=== PATIENT | male | born 1960 | race Caucasian/White ===

== ENCOUNTER 2018-10-27 13:33 | Inpatient (IN) | payer BC, SELFPAY ==
[2018-10-27] VITALS (17 sets, daily range): BP systolic 132–170; BP diastolic 76–92; PULSE 85–118; RESP 12–29; TEMP 36.6–39.2; O2SAT 91–98; BMI 27.7
--- NOTE | 2018-10-27 14:02 | DI.US.S_ITS ---
PROCEDURE: US EXTREMITY NONVASC UPPER LT INDICATIONS: REDNESS AND SWELLING TO THE LEFT UPPER EXTREMITY / SHOULDER TECHNIQUE: Real-time scanning was performed of the left upper arm, with image documentation. COMPARISON: None. FINDINGS: Sonographic images along the medial aspect of the shoulder demonstrate a focal area of heteroechogenicity measuring 9.0 x 2.6 x 3.4 cm. There is no increased vascularity. It is approximately 1.5 cm from the skin surface. IMPRESSION: Heteroechogenicity within the upper extremity adjacent to the shoulder as above. Overall appearance is suggestive of hematoma or potentially abscess. Recommend clinical correlation. Dictated by: Blanca Sarah M.D. on 10/27/2018 at 15:06 Approved by: Blanca Sarah M.D. on 10/27/2018 at 15:07
--- NOTE | 2018-10-27 14:20 | ED.SKABFB ---
HPI - Skin/Abscess/Foreign Bdy <IAN Simmons - Last Filed: 10/27/18 22:30> General Chief complaint: Skin/Abscess/Foreign Body Stated complaint: left shoulder pain and swelling Time Seen by Provider: 10/27/18 13:35 Source: patient Mode of arrival: ambulatory Limitations: no limitations History of Present Illness HPI narrative: 58-year-old male with history hyperlipidemia and is a nonsmoker here for complaint of pain and redness to his left upper arm/shoulder for the past week. He denies any trauma to the shoulder. He was seen for this several days ago by his primary care provider and who put him on prednisone and gave him a steroid shot to the left shoulder to treated for tendinitis. He reports that there is increased pain and swelling to the area and increased redness. He does state that he has had a low-grade fever at times over the past few days. He states the pain started about a week ago after he slipped on it. He denies any drainage from the area. Increased pain with motion of the left arm. No other concerns or complaints at this timeframe. MD complaint: other (Redness to left upper extremity) Related Data Home Medications Medication Instructions Recorded Confirmed Calcium 1 tab PO QPM 10/27/18 10/27/18 aspirin 81 mg PO QPM 10/27/18 10/27/18 diazepam 5 mg PO Q4H PRN 10/27/18 10/27/18 multivitamin 1 tab PO QPM 10/27/18 10/27/18 prednisone 20 mg PO DAILY 10/27/18 10/27/18 rosuvastatin 10 mg PO QPM 10/27/18 10/27/18 Allergies Allergy/AdvReac Type Severity Reaction Status Date / Time almond Allergy Intermediate Hives Verified 10/27/18 19:27 peanut Allergy Intermediate Hives Verified 10/27/18 19:27 walnut Allergy Intermediate Hives Verified 10/27/18 19:27 latex Allergy Mild Rash Verified 10/27/18 19:27 Review of Systems <IAN Simmons - Last Filed: 10/27/18 22:30> Constitutional Denies chills, Denies fever(s), Denies lethargy and Denies weakness Eyes Denies change in vision, Denies eye discharge, Denies irritation and Denies loss of vision ENT Ears, Nose, Mouth, and Throat: Denies change in voice, Denies neck pain and Denies sore throat Cardiovascular Denies chest pain, Denies irregular heart rhythm, Denies lightheadedness, Denies palpitations, Denies dyspnea, Denies dyspnea on exertion and Denies orthopnea Respiratory Denies cough, Denies dyspnea, Denies dyspnea on exertion and Denies wheezing Gastrointestinal Gastrointestinal: Denies abdominal pain, Denies change in bowel habits, Denies diarrhea, Denies nausea and Denies vomiting Genitourinary Denies hematuria, Denies flank pain, Denies urinary incontinence and Denies urinary urgency Musculoskeletal Denies neck pain Comments: Left upper arm redness and swelling Integumentary/Breasts Denies pruritus, Denies erythema, Denies rash and Denies wounds Neurologic Denies loss of vision and Denies weakness Endocrine Denies palpitations Hematologic/Lymphatic Denies easy bruising Allergic/Immunologic Denies wheezing PFSH <IAN Simmons - Last Filed: 10/27/18 22:30> Medical History Hyperlipidemia (Acute) Social History household members: spouse Smoking Status: Never smoker Social History household members: spouse Smoking Status: Never smoker additional social history: The patient lives in a single family home with his to whom he has been for 10 years. His father is related to elevated cholesterol cardiovascular disease status post bypass and smoking. His mother has a history of diabetes. He has 3 siblings 2 sisters and 1 brother all of whom he described as in good health. 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 Exam <IAN Simmons - Last Filed: 10/27/18 22:30> Initial Vital Signs Initial Vital Signs: Vital Signs Temperature 97.8 F 10/27/18 13:38 Pulse Rate 85 10/27/18 13:38 Respiratory Rate 19 10/27/18 13:38 Blood Pressure 133/83 10/27/18 13:38 Pulse Oximetry 97 10/27/18 13:38 Const General: cooperative and well developed Nutritional Appearance: well nourished Orientation: alert, awake, oriented x3 and not confused HENME Mouth: oral mucosae normal and moist mucous membranes Eyes Conjunctivae: conjunctivae normal Sclera: sclerae normal Pupils: PERRL EOM: EOM intact bilaterally Resp Effort & Inspection: normal respiratory effort, able to speak in complete sentences, no respiratory distress and no use of accessory muscles Auscultation: clear to auscultation bilaterally, no rales, no rhonchi and no wheezes Cardio Rate: regular rate Rhythm: regular rhythm Heart Sounds: no click, no gallops, no murmurs and no rubs Pulses: normal peripheral pulses Skin General: no rashes or lesions noted, No jaundice and No petechiae Neuro General: alert, oriented x3, gait normal and no focal motor deficits Speech: speech normal Extrem Other: Erythema and warmth to the anterior and lateral aspect of the left biceps area. Large area of swelling and firmness to the anterior medial biceps area. Distal sensation is intact. Distal range of motions intact. Distal pulses are intact <Alyse Mc DO - Last Filed: 10/30/18 07:18> Initial Vital Signs Initial Vital Signs: Vital Signs Temperature 97.8 F 10/27/18 13:38 Pulse Rate 85 10/27/18 13:38 Respiratory Rate 19 10/27/18 13:38 Blood Pressure 133/83 10/27/18 13:38 Pulse Oximetry 97 10/27/18 13:38 Course <IAN Simmons - Last Filed: 10/27/18 22:30> Orders Ordered: ED Orders 10/30/18 06:40 Basic Metabolic Panel Routine Complete Blood Count AUTO DIFF Routine Procalcitonin Routine Dextrose (D50w) 25 gm IV PRN PRN; Protocol PRN Reason: Hypoglycemia Hydromorphone HCl (Dilaudid) 0.25 mg IV Q5MIN PRN PRN Reason: Pain, Mild (1-3) Hydromorphone HCl (Dilaudid) 0.5 mg IV Q5MIN PRN PRN Reason: Pain, Moderate (4-6) Last Admin: 10/29/18 18:37 Dose: 0.5 mg Admin: 10/29/18 18:31 Dose: 0.5 mg Admin: 10/29/18 18:06 Dose: 0.5 mg Admin: 10/29/18 17:58 Dose: 0.5 mg Hydromorphone HCl (Dilaudid) 1 mg IV Q5MIN PRN PRN Reason: Pain, Severe (7-10) Hydromorphone HCl (Dilaudid) 0.5 mg IV Q2H PRN PRN Reason: Pain, Severe (7-10) Last Admin: 10/30/18 06:54 Dose: 0.5 mg Admin: 10/30/18 03:54 Dose: 0.5 mg Admin: 10/30/18 01:58 Dose: 0.5 mg Penicillin G Potassium (Penicillin G Potassium) 3,000,000 unit in 50 mls @ 100 mls/hr IV Q4H [facility] Last Infusion: 10/30/18 05:13 Dose: 0 mls/hr Admin: 10/30/18 03:46 Dose: 100 mls/hr Infusion: 10/29/18 23:36 Dose: 0 mls/hr Admin: 10/29/18 23:06 Dose: 100 mls/hr Infusion: 10/29/18 21:17 Dose: 0 mls/hr Admin: 10/29/18 20:26 Dose: 100 mls/hr Insulin Aspart (Novolog Flexpen) 0 unit SUBCUT [facility]; Protocol Last Admin: 10/29/18 21:26 Dose: Not Given Oxycodone HCl (Percolone) 5 mg PO Q30MIN PRN PRN Reason: Mild or moderate pain Discontinued Medications Acetaminophen (Tylenol) 975 mg PO TID [facility] Last Admin: 10/29/18 14:11 Dose: 975 mg Admin: 10/29/18 07:39 Dose: 975 mg Admin: 10/28/18 19:31 Dose: 975 mg Admin: 10/28/18 13:57 Dose: 975 mg Admin: 10/28/18 08:17 Dose: 975 mg Albuterol (Ventolin) 2.5 mg INH NOW PRN PRN Reason: Coughing, Wheezing, Dyspnea Aspirin (Aspirin Ec) 81 mg PO BID [facility] Last Admin: 10/29/18 10:10 Dose: Not Given Admin: 10/28/18 19:31 Dose: 81 mg Admin: 10/28/18 10:06 Dose: 81 mg Aspirin (Aspirin Ec) 81 mg PO QPM [facility] Benzonatate (Tessalon Perles) 100 mg PO TID PRN PRN Reason: Cough Bupivacaine HCl/Epinephrine Bitart (Sensorcaine 0.25% W/ Epi (Pf)) 30 ml INJ NOW ONE Stop: 10/27/18 21:29 Last Admin: 10/27/18 21:10 Dose: 12 ml Calcium Carbonate (Calcium) 600 mg PO QPM [facility] Last Admin: 10/29/18 21:14 Dose: Not Given Admin: 10/28/18 18:23 Dose: 600 mg Sodium Chloride 3,000 ml/ (Gentamicin Sulfate 240 mg) 0 ml IRR NOW ONE Stop: 10/27/18 21:29 Last Admin: 10/27/18 21:29 Dose: 3,006 ml Fentanyl (Sublimaze) 50 mcg IV Q5MIN PRN PRN Reason: Pain, Moderate (4-6) Guaifenesin/Codeine Phosphate (Guaifenesin/Codeine Liquid) 10 ml PO NOW ONE Stop: 10/29/18 03:02 Last Admin: 10/29/18 03:19 Dose: 10 ml Hydromorphone HCl (Dilaudid) 0.5 mg IV NOW ONE Stop: 10/27/18 14:03 Last Admin: 10/27/18 14:23 Dose: 0.5 mg Hydromorphone HCl (Dilaudid) 0.5 mg IV NOW ONE Stop: 10/27/18 15:10 Last Admin: 10/27/18 15:17 Dose: 0.5 mg Hydromorphone HCl (Dilaudid) 0.5 mg IV NOW ONE Stop: 10/27/18 17:58 Last Admin: 10/27/18 17:58 Dose: 0.5 mg Hydromorphone HCl (Dilaudid) 0.5 mg IV NOW ONE Stop: 10/27/18 19:02 Last Admin: 10/27/18 19:07 Dose: 0.5 mg Hydromorphone HCl (Dilaudid) 0.5 mg IV Q5MIN PRN PRN Reason: Pain, Moderate (4-6) Last Admin: 10/27/18 21:57 Dose: 0.5 mg Admin: 10/27/18 21:49 Dose: 0.5 mg Vancomycin HCl 1,500 mg/ (Sodium Chloride) 500 mls @ 333.333 mls/hr IV NOW ONE Stop: 10/27/18 15:42 Last Infusion: 10/27/18 19:12 Dose: 0 mls/hr Admin: 10/27/18 16:22 Dose: 333.333 mls/hr Lactated Ringer's (Lactated Ringers) 1,000 mls @ 42 mls/hr IV NOW ONE Stop: 10/28/18 19:27 Last Infusion: 10/27/18 22:38 Dose: 0 mls/hr Admin: 10/27/18 19:39 Dose: 42 mls/hr Cefazolin Sodium 3 gm/ Sodium (Chloride) 100 mls @ 200 mls/hr IV NOW ONE Stop: 10/27/18 21:32 Last Admin: 10/28/18 02:01 Dose: Not Given Cefazolin Sodium 2 gm/ Sodium (Chloride) 100 mls @ 200 mls/hr IV NOW ONE Stop: 10/27/18 22:00 Last Infusion: 10/27/18 21:15 Dose: 0 mls/hr Admin: 10/27/18 21:10 Dose: 200 mls/hr Cefazolin Sodium/Dextrose (Ancef) 2 gm in 100 mls @ 200 mls/hr IV Q8H [facility] Stop: 10/28/18 08:22 Last Infusion: 10/28/18 11:35 Dose: 0 mls/hr Admin: 10/28/18 10:02 Dose: 200 mls/hr Infusion: 10/28/18 03:51 Dose: 0 mls/hr Infusion: 10/28/18 02:30 Dose: 0 mls/hr Admin: 10/28/18 01:51 Dose: 200 mls/hr Vancomycin HCl/Dextrose (Vancomycin) 1,000 mg in 200 mls @ 200 mls/hr IV Q12H [facility] Stop: 10/28/18 00:52 Last Infusion: 10/28/18 03:52 Dose: 0 mls/hr Admin: 10/28/18 02:30 Dose: 200 mls/hr Cefazolin Sodium/Dextrose (Ancef) 1 gm in 50 mls @ 200 mls/hr IV Q8H [facility] Last Admin: 10/29/18 21:21 Dose: 200 mls/hr Infusion: 10/29/18 10:30 Dose: 0 mls/hr Admin: 10/29/18 09:40 Dose: 200 mls/hr Infusion: 10/29/18 02:45 Dose: 0 mls/hr Admin: 10/29/18 02:29 Dose: 200 mls/hr Infusion: 10/28/18 19:39 Dose: 0 mls/hr Admin: 10/28/18 18:30 Dose: 200 mls/hr Sodium Chloride (Normal Saline 0.9%) 250 mls @ 21 mls/hr IV Q24H PRN PRN Reason: Flush Last Infusion: 10/29/18 10:30 Dose: 0 mls/hr Admin: 10/29/18 09:40 Dose: 21 mls/hr Lactated Ringer's (Lactated Ringers) 1,000 mls @ 42 mls/hr IV CONT [facility] Last Infusion: 10/29/18 19:44 Dose: 0 mls/hr Admin: 10/29/18 15:59 Dose: 42 mls/hr Influenza Virus Vaccine (Flu Vaccine) 0.5 ml IM .ONCE ONE Stop: 10/27/18 22:42 Last Admin: 10/28/18 02:02 Dose: Not Given Ketorolac Tromethamine (Toradol) 30 mg IV NOW ONE Stop: 10/29/18 18:14 Last Admin: 10/29/18 18:15 Dose: 30 mg Meperidine HCl (Demerol) 25 mg IV Q5MIN PRN PRN Reason: Pain or shivering Meperidine HCl (Demerol) 25 mg IV Q5MIN PRN PRN Reason: Pain or shivering Last Admin: 10/29/18 17:49 Dose: 25 mg Admin: 10/29/18 17:44 Dose: 25 mg Metoclopramide HCl (Reglan) 10 mg IV NOW PRN PRN Reason: Nausea And Vomiting Multivitamins (Tab-A-Maribel) 1 tab PO QPM [facility] Last Admin: 10/29/18 21:15 Dose: Not Given Admin: 10/28/18 18:23 Dose: 1 tab Non-Formulary Medication (Labetolol) 5 mg IV Q5MIN [facility] Last Admin: 10/27/18 22:01 Dose: 5 mg Ondansetron HCl (Zofran) 4 mg IV NOW PRN PRN Reason: Nausea And Vomiting Ondansetron HCl (Zofran Odt) 4 mg PO Q4HR PRN PRN Reason: Nausea And Vomiting Ondansetron HCl (Zofran) 4 mg IV Q4HR PRN PRN Reason: Nausea And Vomiting Last Admin: 10/28/18 04:04 Dose: 4 mg Oxycodone HCl (Percolone) 5 mg PO Q3HR PRN PRN Reason: Pain, Moderate (4-6) Last Admin: 10/29/18 07:39 Dose: 5 mg Admin: 10/29/18 00:58 Dose: 5 mg Admin: 10/28/18 18:30 Dose: 5 mg Admin: 10/28/18 10:06 Dose: 5 mg Admin: 10/28/18 06:57 Dose: 5 mg Admin: 10/28/18 03:59 Dose: 5 mg Polyethylene Glycol (Miralax) 17 gm PO DAILY [facility] Last Admin: 10/29/18 10:10 Dose: Not Given Admin: 10/28/18 10:07 Dose: 17 gm Rosuvastatin Calcium (Crestor) 10 mg PO QPM [facility] Last Admin: 10/29/18 21:15 Dose: Not Given Admin: 10/28/18 18:23 Dose: 10 mg Sodium Chloride (Normal Saline 0.9% Flush) 10 ml IV PRN PRN PRN Reason: Flush Sodium Chloride (Normal Saline 0.9% Flush) 10 ml IV BID [facility] Last Admin: 10/29/18 09:39 Dose: 10 ml Admin: 10/28/18 19:35 Dose: 10 ml Vital Signs - 8 hr 10/30/18 02:00 10/30/18 06:01 10/30/18 06:46 Temperature 98.3 F 97.8 F Pulse Rate 97 H 97 H Respiratory Rate 16 16 Blood Pressure 149/84 H 120/81 Pulse Oximetry 98 97 <Alyse Mc, - Last Filed: 10/30/18 07:18> Orders Ordered: ED Orders 10/30/18 06:40 Basic Metabolic Panel Routine Complete Blood Count AUTO DIFF Routine Procalcitonin Routine Dextrose (D50w) 25 gm IV PRN PRN; Protocol PRN Reason: Hypoglycemia Hydromorphone HCl (Dilaudid) 0.25 mg IV Q5MIN PRN PRN Reason: Pain, Mild (1-3) Hydromorphone HCl (Dilaudid) 0.5 mg IV Q5MIN PRN PRN Reason: Pain, Moderate (4-6) Last Admin: 10/29/18 18:37 Dose: 0.5 mg Admin: 10/29/18 18:31 Dose: 0.5 mg Admin: 10/29/18 18:06 Dose: 0.5 mg Admin: 10/29/18 17:58 Dose: 0.5 mg Hydromorphone HCl (Dilaudid) 1 mg IV Q5MIN PRN PRN Reason: Pain, Severe (7-10) Hydromorphone HCl (Dilaudid) 0.5 mg IV Q2H PRN PRN Reason: Pain, Severe (7-10) Last Admin: 10/30/18 06:54 Dose: 0.5 mg Admin: 10/30/18 03:54 Dose: 0.5 mg Admin: 10/30/18 01:58 Dose: 0.5 mg Penicillin G Potassium (Penicillin G Potassium) 3,000,000 unit in 50 mls @ 100 mls/hr IV Q4H [facility] Last Infusion: 10/30/18 05:13 Dose: 0 mls/hr Admin: 10/30/18 03:46 Dose: 100 mls/hr Infusion: 10/29/18 23:36 Dose: 0 mls/hr Admin: 10/29/18 23:06 Dose: 100 mls/hr Infusion: 10/29/18 21:17 Dose: 0 mls/hr Admin: 10/29/18 20:26 Dose: 100 mls/hr Insulin Aspart (Novolog Flexpen) 0 unit SUBCUT [facility]; Protocol Last Admin: 10/29/18 21:26 Dose: Not Given Oxycodone HCl (Percolone) 5 mg PO Q30MIN PRN PRN Reason: Mild or moderate pain Discontinued Medications Acetaminophen (Tylenol) 975 mg PO TID [facility] Last Admin: 10/29/18 14:11 Dose: 975 mg Admin: 10/29/18 07:39 Dose: 975 mg Admin: 10/28/18 19:31 Dose: 975 mg Admin: 10/28/18 13:57 Dose: 975 mg Admin: 10/28/18 08:17 Dose: 975 mg Albuterol (Ventolin) 2.5 mg INH NOW PRN PRN Reason: Coughing, Wheezing, Dyspnea Aspirin (Aspirin Ec) 81 mg PO BID [facility] Last Admin: 10/29/18 10:10 Dose: Not Given Admin: 10/28/18 19:31 Dose: 81 mg Admin: 10/28/18 10:06 Dose: 81 mg Aspirin (Aspirin Ec) 81 mg PO QPM [facility] Benzonatate (Tessalon Perles) 100 mg PO TID PRN PRN Reason: Cough Bupivacaine HCl/Epinephrine Bitart (Sensorcaine 0.25% W/ Epi (Pf)) 30 ml INJ NOW ONE Stop: 10/27/18 21:29 Last Admin: 10/27/18 21:10 Dose: 12 ml Calcium Carbonate (Calcium) 600 mg PO QPM [facility] Last Admin: 10/29/18 21:14 Dose: Not Given Admin: 10/28/18 18:23 Dose: 600 mg Sodium Chloride 3,000 ml/ (Gentamicin Sulfate 240 mg) 0 ml IRR NOW ONE Stop: 10/27/18 21:29 Last Admin: 10/27/18 21:29 Dose: 3,006 ml Fentanyl (Sublimaze) 50 mcg IV Q5MIN PRN PRN Reason: Pain, Moderate (4-6) Guaifenesin/Codeine Phosphate (Guaifenesin/Codeine Liquid) 10 ml PO NOW ONE Stop: 10/29/18 03:02 Last Admin: 10/29/18 03:19 Dose: 10 ml Hydromorphone HCl (Dilaudid) 0.5 mg IV NOW ONE Stop: 10/27/18 14:03 Last Admin: 10/27/18 14:23 Dose: 0.5 mg Hydromorphone HCl (Dilaudid) 0.5 mg IV NOW ONE Stop: 10/27/18 15:10 Last Admin: 10/27/18 15:17 Dose: 0.5 mg Hydromorphone HCl (Dilaudid) 0.5 mg IV NOW ONE Stop: 10/27/18 17:58 Last Admin: 10/27/18 17:58 Dose: 0.5 mg Hydromorphone HCl (Dilaudid) 0.5 mg IV NOW ONE Stop: 10/27/18 19:02 Last Admin: 10/27/18 19:07 Dose: 0.5 mg Hydromorphone HCl (Dilaudid) 0.5 mg IV Q5MIN PRN PRN Reason: Pain, Moderate (4-6) Last Admin: 10/27/18 21:57 Dose: 0.5 mg Admin: 10/27/18 21:49 Dose: 0.5 mg Vancomycin HCl 1,500 mg/ (Sodium Chloride) 500 mls @ 333.333 mls/hr IV NOW ONE Stop: 10/27/18 15:42 Last Infusion: 10/27/18 19:12 Dose: 0 mls/hr Admin: 10/27/18 16:22 Dose: 333.333 mls/hr Lactated Ringer's (Lactated Ringers) 1,000 mls @ 42 mls/hr IV NOW ONE Stop: 10/28/18 19:27 Last Infusion: 10/27/18 22:38 Dose: 0 mls/hr Admin: 10/27/18 19:39 Dose: 42 mls/hr Cefazolin Sodium 3 gm/ Sodium (Chloride) 100 mls @ 200 mls/hr IV NOW ONE Stop: 10/27/18 21:32 Last Admin: 10/28/18 02:01 Dose: Not Given Cefazolin Sodium 2 gm/ Sodium (Chloride) 100 mls @ 200 mls/hr IV NOW ONE Stop: 10/27/18 22:00 Last Infusion: 10/27/18 21:15 Dose: 0 mls/hr Admin: 10/27/18 21:10 Dose: 200 mls/hr Cefazolin Sodium/Dextrose (Ancef) 2 gm in 100 mls @ 200 mls/hr IV Q8H [facility] Stop: 10/28/18 08:22 Last Infusion: 10/28/18 11:35 Dose: 0 mls/hr Admin: 10/28/18 10:02 Dose: 200 mls/hr Infusion: 10/28/18 03:51 Dose: 0 mls/hr Infusion: 10/28/18 02:30 Dose: 0 mls/hr Admin: 10/28/18 01:51 Dose: 200 mls/hr Vancomycin HCl/Dextrose (Vancomycin) 1,000 mg in 200 mls @ 200 mls/hr IV Q12H [facility] Stop: 10/28/18 00:52 Last Infusion: 10/28/18 03:52 Dose: 0 mls/hr Admin: 10/28/18 02:30 Dose: 200 mls/hr Cefazolin Sodium/Dextrose (Ancef) 1 gm in 50 mls @ 200 mls/hr IV Q8H [facility] Last Admin: 10/29/18 21:21 Dose: 200 mls/hr Infusion: 10/29/18 10:30 Dose: 0 mls/hr Admin: 10/29/18 09:40 Dose: 200 mls/hr Infusion: 10/29/18 02:45 Dose: 0 mls/hr Admin: 10/29/18 02:29 Dose: 200 mls/hr Infusion: 10/28/18 19:39 Dose: 0 mls/hr Admin: 10/28/18 18:30 Dose: 200 mls/hr Sodium Chloride (Normal Saline 0.9%) 250 mls @ 21 mls/hr IV Q24H PRN PRN Reason: Flush Last Infusion: 10/29/18 10:30 Dose: 0 mls/hr Admin: 10/29/18 09:40 Dose: 21 mls/hr Lactated Ringer's (Lactated Ringers) 1,000 mls @ 42 mls/hr IV CONT [facility] Last Infusion: 10/29/18 19:44 Dose: 0 mls/hr Admin: 10/29/18 15:59 Dose: 42 mls/hr Influenza Virus Vaccine (Flu Vaccine) 0.5 ml IM .ONCE ONE Stop: 10/27/18 22:42 Last Admin: 10/28/18 02:02 Dose: Not Given Ketorolac Tromethamine (Toradol) 30 mg IV NOW ONE Stop: 10/29/18 18:14 Last Admin: 10/29/18 18:15 Dose: 30 mg Meperidine HCl (Demerol) 25 mg IV Q5MIN PRN PRN Reason: Pain or shivering Meperidine HCl (Demerol) 25 mg IV Q5MIN PRN PRN Reason: Pain or shivering Last Admin: 10/29/18 17:49 Dose: 25 mg Admin: 10/29/18 17:44 Dose: 25 mg Metoclopramide HCl (Reglan) 10 mg IV NOW PRN PRN Reason: Nausea And Vomiting Multivitamins (Tab-A-Maribel) 1 tab PO QPM [facility] Last Admin: 10/29/18 21:15 Dose: Not Given Admin: 10/28/18 18:23 Dose: 1 tab Non-Formulary Medication (Labetolol) 5 mg IV Q5MIN [facility] Last Admin: 10/27/18 22:01 Dose: 5 mg Ondansetron HCl (Zofran) 4 mg IV NOW PRN PRN Reason: Nausea And Vomiting Ondansetron HCl (Zofran Odt) 4 mg PO Q4HR PRN PRN Reason: Nausea And Vomiting Ondansetron HCl (Zofran) 4 mg IV Q4HR PRN PRN Reason: Nausea And Vomiting Last Admin: 10/28/18 04:04 Dose: 4 mg Oxycodone HCl (Percolone) 5 mg PO Q3HR PRN PRN Reason: Pain, Moderate (4-6) Last Admin: 10/29/18 07:39 Dose: 5 mg Admin: 10/29/18 00:58 Dose: 5 mg Admin: 10/28/18 18:30 Dose: 5 mg Admin: 10/28/18 10:06 Dose: 5 mg Admin: 10/28/18 06:57 Dose: 5 mg Admin: 10/28/18 03:59 Dose: 5 mg Polyethylene Glycol (Miralax) 17 gm PO DAILY [facility] Last Admin: 10/29/18 10:10 Dose: Not Given Admin: 10/28/18 10:07 Dose: 17 gm Rosuvastatin Calcium (Crestor) 10 mg PO QPM [facility] Last Admin: 10/29/18 21:15 Dose: Not Given Admin: 10/28/18 18:23 Dose: 10 mg Sodium Chloride (Normal Saline 0.9% Flush) 10 ml IV PRN PRN PRN Reason: Flush Sodium Chloride (Normal Saline 0.9% Flush) 10 ml IV BID [facility] Last Admin: 10/29/18 09:39 Dose: 10 ml Admin: 10/28/18 19:35 Dose: 10 ml Vital Signs - 8 hr 10/30/18 02:00 10/30/18 06:01 10/30/18 06:46 Temperature 98.3 F 97.8 F Pulse Rate 97 H 97 H Respiratory Rate 16 16 Blood Pressure 149/84 H 120/81 Pulse Oximetry 98 97 MDM - Skin/Abscess/Foreign Bdy <IAN Simmons - Last Filed: 10/27/18 22:30> Lab Data Result diagrams: 10/29/18 06:42 10/27/18 14:24 Lab Results 10/27/18 10/27/18 10/27/18 Range/Units 14:24 14:24 14:24 WBC 25.5 H (4.5-11.0) X10^3/uL RBC 4.36 L (4.5-5.9) X10^6/uL Hgb 12.9 L (13.5-17.5) g/dL Hct 38.8 L (41-53) % MCV 89.1 (80-100) fL MCH 29.5 (26-34) PG MCHC 33.1 (30-36) % RDW 13.4 (11.6-14.8) % Plt Count 432 H (150-400) X10^3/uL Neut % (Auto) Not Reportable Lymph % (Auto) Not Reportable [place] % (Auto) Not Reportable Eos % (Auto) Not Reportable Baso % (Auto) Not Reportable Lymph # (Auto) Not Reportable [place] # (Auto) Not Reportable Baso # (Auto) Not Reportable Total Counted 100 Seg Neutrophils % 84.0 H (38-70) % Band Neutrophils % 8.0 H (3-7) % Lymphocytes % (Manual) 3.0 L (25-45) % Monocytes % (Manual) 4.0 (2-11) % Eosinophils % (Manual) 1.0 L (2-4) % Neutrophils # (Manual) 24666 H (3257-8194) /uL RBC Morphology Normal morphology Sodium 136 L (137-145) mmol/L Potassium 3.9 (3.4-5.1) mmol/L Chloride 98 (98-107) mmol/L Carbon Dioxide 26 (22-32) mmol/L BUN 18 (9-20) mg/dL Creatinine 0.80 (0.66-1.25) mg/dL Estimated GFR > 60.0 (>60) mL/min BUN/Creatinine Ratio 22.5 H (6-22) Glucose 240 H (70-100) mg/dL Hemoglobin A1c (4.0-6.0) % Lactate (0.7-2.1) mmol/L Calcium 8.6 (8.4-10.2) mg/dL Total Bilirubin 0.3 (0.2-1.3) mg/dL AST 44 (17-59) IU/L ALT 71 (21-72) IU/L Alkaline Phosphatase 111 (38-126) U/L Total Protein 8.5 H (6.3-8.2) g/dL Albumin 3.7 (3.5-5.0) g/dL Globulin 4.8 H (1.7-4.1) g/dL Albumin/Globulin Ratio 0.8 L (1.0-2.8) Procalcitonin 0.27 (<0.5) ng/mL 10/27/18 10/28/18 10/29/18 Range/Units 14:24 06:55 06:42 WBC 26.2 H (4.5-11.0) X10^3/uL RBC 3.95 L (4.5-5.9) X10^6/uL Hgb 11.7 L (13.5-17.5) g/dL Hct 34.7 L (41-53) % MCV 87.9 (80-100) fL MCH 29.5 (26-34) PG MCHC 33.6 (30-36) % RDW 13.1 (11.6-14.8) % Plt Count 448 H (150-400) X10^3/uL Neut % (Auto) Lymph % (Auto) [place] % (Auto) Eos % (Auto) Baso % (Auto) Lymph # (Auto) [place] # (Auto) Baso # (Auto) Total Counted Seg Neutrophils % (38-70) % Band Neutrophils % (3-7) % Lymphocytes % (Manual) (25-45) % Monocytes % (Manual) (2-11) % Eosinophils % (Manual) (2-4) % Neutrophils # (Manual) (5427-3565) /uL RBC Morphology Sodium (137-145) mmol/L Potassium (3.4-5.1) mmol/L Chloride (98-107) mmol/L Carbon Dioxide (22-32) mmol/L BUN (9-20) mg/dL Creatinine (0.66-1.25) mg/dL Estimated GFR (>60) mL/min BUN/Creatinine Ratio (6-22) Glucose (70-100) mg/dL Hemoglobin A1c 6.0 (4.0-6.0) % Lactate 1.9 (0.7-2.1) mmol/L Calcium (8.4-10.2) mg/dL Total Bilirubin (0.2-1.3) mg/dL AST (17-59) IU/L ALT (21-72) IU/L Alkaline Phosphatase (38-126) U/L Total Protein (6.3-8.2) g/dL Albumin (3.5-5.0) g/dL Globulin (1.7-4.1) g/dL Albumin/Globulin Ratio (1.0-2.8) Procalcitonin (<0.5) ng/mL 10/29/18 Range/Units 06:42 WBC 25.5 H (4.5-11.0) X10^3/uL RBC 4.12 L (4.5-5.9) X10^6/uL Hgb 12.2 L (13.5-17.5) g/dL Hct 36.4 L (41-53) % MCV 88.3 (80-100) fL MCH 29.7 (26-34) PG MCHC 33.7 (30-36) % RDW 13.3 (11.6-14.8) % Plt Count 512 H (150-400) X10^3/uL Neut % (Auto) Not Reportable Lymph % (Auto) Not Reportable [place] % (Auto) Not Reportable Eos % (Auto) Not Reportable Baso % (Auto) Not Reportable Lymph # (Auto) Not Reportable [place] # (Auto) Not Reportable Baso # (Auto) Not Reportable Total Counted 100 Seg Neutrophils % 80.0 H (38-70) % Band Neutrophils % 2.0 L (3-7) % Lymphocytes % (Manual) 11.0 L (25-45) % Monocytes % (Manual) 7.0 (2-11) % Eosinophils % (Manual) (2-4) % Neutrophils # (Manual) 89957 H (9139-9284) /uL RBC Morphology Normal morphology Sodium (137-145) mmol/L Potassium (3.4-5.1) mmol/L Chloride (98-107) mmol/L Carbon Dioxide (22-32) mmol/L BUN (9-20) mg/dL Creatinine (0.66-1.25) mg/dL Estimated GFR (>60) mL/min BUN/Creatinine Ratio (6-22) Glucose (70-100) mg/dL Hemoglobin A1c (4.0-6.0) % Lactate (0.7-2.1) mmol/L Calcium (8.4-10.2) mg/dL Total Bilirubin (0.2-1.3) mg/dL AST (17-59) IU/L ALT (21-72) IU/L Alkaline Phosphatase (38-126) U/L Total Protein (6.3-8.2) g/dL Albumin (3.5-5.0) g/dL Globulin (1.7-4.1) g/dL Albumin/Globulin Ratio (1.0-2.8) Procalcitonin (<0.5) ng/mL Point of Care Testing Glucose POC 171 Imaging Data Left upper extremity ultrasound: Radiologist's impression: [address] [address] Ultrasound Report Signed Patient: Anuel Melendrez BANNER#: [id number] : 9Acct:[id number] Age/Sex: 58 / MDate of Service: 10/27/18 Loc: ED Accession Number: [id number] Procedure: US extremity nonvasc upper lt Ordering Provider: Rodney Vail PROCEDURE: US EXTREMITY NONVASC UPPER LT INDICATIONS: REDNESS AND SWELLING TO THE LEFT UPPER EXTREMITY / SHOULDER TECHNIQUE: Real-time scanning was performed of the left upper arm, with image documentation. COMPARISON: None. FINDINGS: Sonographic images along the medial aspect of the shoulder demonstrate a focal area of heteroechogenicity measuring 9.0 x 2.6 x 3.4 cm. There is no increased vascularity. It is approximately 1.5 cm from the skin surface. IMPRESSION: Heteroechogenicity within the upper extremity adjacent to the shoulder as above. Overall appearance is suggestive of hematoma or potentially abscess. Recommend clinical correlation. Dictated by: Blanca Sarah M.D. on 10/27/2018 at 15:06 Approved by: Blanca Sarah M.D. on 10/27/2018 at 15:07 MRI left upper extremity : Radiologist's impression: [address] [address] Magnetic Resonance Report Signed Patient: [place] AMR#: [id number] : 9Acct:[id number] Age/Sex: 58 / MDate of Service: 10/27/18 Loc: ED Accession Number: [id number] Procedure: MR humerus LT wo/w con Ordering Provider: Rodney Vail PROCEDURE: MR HUMERUS LT WO/W CON INDICATIONS: Redness and swelling to the left anterior arm into anterior TECHNIQUE: Noncontrast coronal T1 spin echo and STIR, sagittal T1 spin echo with fat saturation and STIR, axial T1 spin echo and T2 fast spin echo with fat saturation. After the administration of contrast, axial/sagittal/coronal T1 spin echo with fat saturation through the left upper arm. COMPARISON: [facility], , EXTREMITY NONVAS UPPER LT, 10/27/2018, 14:18. FINDINGS: Image quality: Diagnostic. Bones: There is no acute fracture or dislocation identified involving the osseous structures of the left upper arm. Over time there is focal marrow edema evident involving the head of the humerus. There is a prominent shoulder joint effusion. No definite abnormal signal is appreciated involving the scapula. Soft tissues: There is extensive deep tissue edema identified involving the left shoulder with edema noted within the deltoid muscle, lateral pectoralis major muscle, biceps muscle, and the upper triceps muscle. A septated fluid collection within the anterior aspect of the deltoid muscle is identified, which correlates with the abnormality appreciated on the conventional ultrasound. The structure demonstrates peripheral enhancement and measures at least 11.1 x 3.1 x 3.9 cm. No definitive soft tissue masses are present. Borderline prominent left axillary lymph nodes are present. The imaged portions of the left chest and upper left abdomen are grossly unremarkable. IMPRESSION: 1. Septated fluid collection along the deltoid muscle is more pronounced on the anterior aspect of the lower deltoid. This fluid collection is suspicious for an abscess. However, hematoma may have this appearance. Followup imaging in 8-12 weeks by MRI with intravenous contrast is recommended to exclude underlying lesion. 2. Extensive edema of the deltoid muscle and other upper arm muscles is suspicious for myositis. However, direct contusion of the muscle could also result in this appearance. 3. No convincing evidence of osteomyelitis. Dictated by: Yasir Melendez M.D. on 10/27/2018 at 16:23 Approved by: Yasir Melendez M.D. on 10/27/2018 at 16:28 MDM Narrative Medical decision making narrative: CBC shows elevated white count of 25 k. chemistry panel was obtained was unremarkable. Procalcitonin and lactate were negative. Blood cultures are pending. Ultrasound shows a 9 cm fluid filled area in the left upper extremity that is consistent with hematoma or an abscess. Considering low-grade fever and elevated white count believe that it is an abscess. Discussed case with surgery Dr. Goldstein who evaluated the patient and feels that he would be better off with Orthopedics. Discussed case with orthopedics Dr. Ogden. Who will evaluate the patient after her surgical case this afternoon. She requests that I obtained an MRI of the left upper extremity which was obtained and it shows a 11 cm area concerning for abscess. Patient was placed on vancomycin in the emergency room. <Alyse Mc, DO - Last Filed: 10/30/18 07:18> Lab Data Lab Results 10/27/18 10/27/18 10/27/18 Range/Units 14:24 14:24 14:24 WBC 25.5 H (4.5-11.0) X10^3/uL RBC 4.36 L (4.5-5.9) X10^6/uL Hgb 12.9 L (13.5-17.5) g/dL Hct 38.8 L (41-53) % MCV 89.1 (80-100) fL MCH 29.5 (26-34) PG MCHC 33.1 (30-36) % RDW 13.4 (11.6-14.8) % Plt Count 432 H (150-400) X10^3/uL Neut % (Auto) Not Reportable Lymph % (Auto) Not Reportable [place] % (Auto) Not Reportable Eos % (Auto) Not Reportable Baso % (Auto) Not Reportable Lymph # (Auto) Not Reportable [place] # (Auto) Not Reportable Baso # (Auto) Not Reportable Total Counted 100 Seg Neutrophils % 84.0 H (38-70) % Band Neutrophils % 8.0 H (3-7) % Lymphocytes % (Manual) 3.0 L (25-45) % Monocytes % (Manual) 4.0 (2-11) % Eosinophils % (Manual) 1.0 L (2-4) % Neutrophils # (Manual) 05941 H (2054-4069) /uL RBC Morphology Normal morphology Sodium 136 L (137-145) mmol/L Potassium 3.9 (3.4-5.1) mmol/L Chloride 98 (98-107) mmol/L Carbon Dioxide 26 (22-32) mmol/L BUN 18 (9-20) mg/dL Creatinine 0.80 (0.66-1.25) mg/dL Estimated GFR > 60.0 (>60) mL/min BUN/Creatinine Ratio 22.5 H (6-22) Glucose 240 H (70-100) mg/dL Hemoglobin A1c (4.0-6.0) % Lactate (0.7-2.1) mmol/L Calcium 8.6 (8.4-10.2) mg/dL Total Bilirubin 0.3 (0.2-1.3) mg/dL AST 44 (17-59) IU/L ALT 71 (21-72) IU/L Alkaline Phosphatase 111 (38-126) U/L Total Protein 8.5 H (6.3-8.2) g/dL Albumin 3.7 (3.5-5.0) g/dL Globulin 4.8 H (1.7-4.1) g/dL Albumin/Globulin Ratio 0.8 L (1.0-2.8) Procalcitonin 0.27 (<0.5) ng/mL 10/27/18 10/28/18 10/29/18 Range/Units 14:24 06:55 06:42 WBC 26.2 H (4.5-11.0) X10^3/uL RBC 3.95 L (4.5-5.9) X10^6/uL Hgb 11.7 L (13.5-17.5) g/dL Hct 34.7 L (41-53) % MCV 87.9 (80-100) fL MCH 29.5 (26-34) PG MCHC 33.6 (30-36) % RDW 13.1 (11.6-14.8) % Plt Count 448 H (150-400) X10^3/uL Neut % (Auto) Lymph % (Auto) [place] % (Auto) Eos % (Auto) Baso % (Auto) Lymph # (Auto) [place] # (Auto) Baso # (Auto) Total Counted Seg Neutrophils % (38-70) % Band Neutrophils % (3-7) % Lymphocytes % (Manual) (25-45) % Monocytes % (Manual) (2-11) % Eosinophils % (Manual) (2-4) % Neutrophils # (Manual) (3364-2709) /uL RBC Morphology Sodium (137-145) mmol/L Potassium (3.4-5.1) mmol/L Chloride (98-107) mmol/L Carbon Dioxide (22-32) mmol/L BUN (9-20) mg/dL Creatinine (0.66-1.25) mg/dL Estimated GFR (>60) mL/min BUN/Creatinine Ratio (6-22) Glucose (70-100) mg/dL Hemoglobin A1c 6.0 (4.0-6.0) % Lactate 1.9 (0.7-2.1) mmol/L Calcium (8.4-10.2) mg/dL Total Bilirubin (0.2-1.3) mg/dL AST (17-59) IU/L ALT (21-72) IU/L Alkaline Phosphatase (38-126) U/L Total Protein (6.3-8.2) g/dL Albumin (3.5-5.0) g/dL Globulin (1.7-4.1) g/dL Albumin/Globulin Ratio (1.0-2.8) Procalcitonin (<0.5) ng/mL 10/29/18 Range/Units 06:42 WBC 25.5 H (4.5-11.0) X10^3/uL RBC 4.12 L (4.5-5.9) X10^6/uL Hgb 12.2 L (13.5-17.5) g/dL Hct 36.4 L (41-53) % MCV 88.3 (80-100) fL MCH 29.7 (26-34) PG MCHC 33.7 (30-36) % RDW 13.3 (11.6-14.8) % Plt Count 512 H (150-400) X10^3/uL Neut % (Auto) Not Reportable Lymph % (Auto) Not Reportable [place] % (Auto) Not Reportable Eos % (Auto) Not Reportable Baso % (Auto) Not Reportable Lymph # (Auto) Not Reportable [place] # (Auto) Not Reportable Baso # (Auto) Not Reportable Total Counted 100 Seg Neutrophils % 80.0 H (38-70) % Band Neutrophils % 2.0 L (3-7) % Lymphocytes % (Manual) 11.0 L (25-45) % Monocytes % (Manual) 7.0 (2-11) % Eosinophils % (Manual) (2-4) % Neutrophils # (Manual) 15450 H (7424-8063) /uL RBC Morphology Normal morphology Sodium (137-145) mmol/L Potassium (3.4-5.1) mmol/L Chloride (98-107) mmol/L Carbon Dioxide (22-32) mmol/L BUN (9-20) mg/dL Creatinine (0.66-1.25) mg/dL Estimated GFR (>60) mL/min BUN/Creatinine Ratio (6-22) Glucose (70-100) mg/dL Hemoglobin A1c (4.0-6.0) % Lactate (0.7-2.1) mmol/L Calcium (8.4-10.2) mg/dL Total Bilirubin (0.2-1.3) mg/dL AST (17-59) IU/L ALT (21-72) IU/L Alkaline Phosphatase (38-126) U/L Total Protein (6.3-8.2) g/dL Albumin (3.5-5.0) g/dL Globulin (1.7-4.1) g/dL Albumin/Globulin Ratio (1.0-2.8) Procalcitonin (<0.5) ng/mL Point of Care Testing Glucose POC 171 Discharge Plan Departure Patient Disposition: Admitted As Inpatient Clinical Impression: Abscess of arm, left Cellulitis Qualifiers: Site of cellulitis: extremity Site of cellulitis of extremity: upper extremity Laterality: left Qualified Code(s): L03.114 - Cellulitis of left upper limb Discharge Date/Time: 10/27/18 19:14 Interventions: ED Discharge Assessment Last Done: 10/27/18 19:14 Admit Date/Time: 10/27/18 18:59 Admit Provider: Anna Ogden <Alyse Mc DO - Last Filed: 10/30/18 07:18> Cosign ED Attending Arnaudature Attestation: I was immediately available in the department for consultation, case was discussed, patient was evaluated by myself also. Admitted to Surgery but also discussed with Orthopedic surgery. This documentation has been reviewed and I agree with assessment and plan. Supervised by Alyse Mc DO
[2018-10-27] MEDS: HYDROMORPHONE 1 MG INJ 0.5 MG IV ×4 (14:23→19:07)
[2018-10-27 14:54] LABS: Hematocrit 38.8 % (41-53); Hemoglobin 12.9 g/dL (13.5-17.5); Mean Corpuscular HGB Conc 33.1 % (30-36); Mean Corpuscular Hemoglobin 29.5 PG (26-34); Mean Corpuscular Volume 89.1 fL (80-100); Platelet Count 432 X10^3/uL (150-400); Red Blood Cell Count 4.36 X10^6/uL (4.5-5.9); Red Cell Distribution Width 13.4 % (11.6-14.8)
[2018-10-27 14:56] LABS: Add Manual Diff / Slide Review YES; White Blood Cell Count 25.5 X10^3/uL (4.5-11.0)
[2018-10-27 15:05] LABS: Lactate (Lactic Acid) 1.9 mmol/L (0.7-2.1)
[2018-10-27 15:07] LABS: Alanine Aminotransferase 71 IU/L (21-72); Albumin 3.7 g/dL (3.5-5.0); Albumin Globulin Ratio 0.8 (1.0-2.8); Alkaline Phosphatase 111 U/L (38-126); Aspartate Aminotransferase 44 IU/L (17-59); BUN Creatinine Ratio 22.5 (6-22); Bilirubin Total 0.3 mg/dL (0.2-1.3); Blood Urea Nitrogen 18 mg/dL (9-20); Calcium 8.6 mg/dL (8.4-10.2); Carbon Dioxide 26 mmol/L (22-32); Chloride 98 mmol/L (98-107); Estimated Glomerular Filt Rate > 60.0 mL/min (>60); Globulin 4.8 g/dL (1.7-4.1); Glucose 240 mg/dL (70-100); HEMOLYSIS < 15 (0-50); Potassium 3.9 mmol/L (3.4-5.1); Sodium 136 mmol/L (137-145); Total Protein 8.5 g/dL (6.3-8.2)
[2018-10-27 15:18] LABS: Neutrophils Absolute Manual 23460 /uL (3000-5900); Total Cells Counted 100
[2018-10-27 15:19] LABS: RBC Morphology Normal Morphology
[2018-10-27 15:21] LABS: Procalcitonin 0.27 ng/mL (<0.5)
[2018-10-27] MEDS: VANCOMYCIN 1,500 MG in SODIUM CHLORIDE 0.9% 500 ML 333.333 ML IV (16:22)
--- NOTE | 2018-10-27 16:29 | DI.MRI.S_ITS ---
PROCEDURE: MR HUMERUS LT WO/W CON INDICATIONS: Redness and swelling to the left anterior arm into anterior TECHNIQUE: Noncontrast coronal T1 spin echo and STIR, sagittal T1 spin echo with fat saturation and STIR, axial T1 spin echo and T2 fast spin echo with fat saturation. After the administration of contrast, axial/sagittal/coronal T1 spin echo with fat saturation through the left upper arm. COMPARISON: [facility], US, US EXTREMITY NONVASC UPPER LT, 10/27/2018, 14:18. FINDINGS: Image quality: Diagnostic. Bones: There is no acute fracture or dislocation identified involving the osseous structures of the left upper arm. Over time there is focal marrow edema evident involving the head of the humerus. There is a prominent shoulder joint effusion. No definite abnormal signal is appreciated involving the scapula. Soft tissues: There is extensive deep tissue edema identified involving the left shoulder with edema noted within the deltoid muscle, lateral pectoralis major muscle, biceps muscle, and the upper triceps muscle. A septated fluid collection within the anterior aspect of the deltoid muscle is identified, which correlates with the abnormality appreciated on the conventional ultrasound. The structure demonstrates peripheral enhancement and measures at least 11.1 x 3.1 x 3.9 cm. No definitive soft tissue masses are present. Borderline prominent left axillary lymph nodes are present. The imaged portions of the left chest and upper left abdomen are grossly unremarkable. IMPRESSION: 1. Septated fluid collection along the deltoid muscle is more pronounced on the anterior aspect of the lower deltoid. This fluid collection is suspicious for an abscess. However, hematoma may have this appearance. Followup imaging in 8-12 weeks by MRI with intravenous contrast is recommended to exclude underlying lesion. 2. Extensive edema of the deltoid muscle and other upper arm muscles is suspicious for myositis. However, direct contusion of the muscle could also result in this appearance. 3. No convincing evidence of osteomyelitis. Dictated by: Yasir Melendez M.D. on 10/27/2018 at 16:23 Approved by: Yasir Melendez M.D. on 10/27/2018 at 16:28
[2018-10-27] MEDS: LACTATED RINGERS 1,000 ML 42 ML IV (19:39)
--- NOTE | 2018-10-27 20:01 | P.HP_ITS ---
History of Present Illness Date Patient Seen: 10/27/18 Time Patient Seen: 20:00 Chief complaint: left shoulder pain and swelling Narrative: THIS IS A PLEASANT 58-YEAR-OLD GENTLEMAN WHO ABOUT 8 OR 9 DAYS AGO DEVELOPED AN ILLNESS WHICH HE THOUGHT WAS LIKELY THE FLU. HE REPORTEDLY HAD A SORE THROAT WELL NAUSEA AND DID NOT FEEL WELL OVERALL. He got some improvement with supportive measures. He then developed fairly severe left shoulder pain and was evaluated by his primary care practitioner. 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 He was initially prescribed Valium for muscle spasms. He failed to respond to that and subsequently was placed on cortisone. He specifically did not have an injection. He then progressively worsened and was brought to the hospital for evaluation with worsening left shoulder pain and fevers and chills. 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 Family & Social History Social History: household members spouse Safety & Behavioral: Feels Safe in Current Yes Environment Tobacco & Substance use: Smoking Status Never smoker alcohol intake frequency a few times a month Substance Use Type does not use Meds Home Medications Medication Instructions Recorded Confirmed Type Calcium 1 tab PO QPM 10/27/18 10/27/18 History aspirin 81 mg PO QPM 10/27/18 10/27/18 History diazepam 5 mg PO Q4H PRN 10/27/18 10/27/18 History multivitamin 1 tab PO QPM 10/27/18 10/27/18 History prednisone 20 mg PO DAILY 10/27/18 10/27/18 History rosuvastatin 10 mg PO QPM 10/27/18 10/27/18 History Allergies Allergy/AdvReac Type Severity Reaction Status Date / Time almond Allergy Intermediate Hives Verified 10/27/18 19:27 peanut Allergy Intermediate Hives Verified 10/27/18 19:27 walnut Allergy Intermediate Hives Verified 10/27/18 19:27 latex Allergy Mild Rash Verified 10/27/18 19:27 Review of Systems Review of Systems he has chronic problems with chronic low-grade cough and seasonal allergies, he does note recent fever and chills, he denies stiff neck, he has not been short of breath or had chest pain, he denies a history of Intravenous drug abuse, no history of significant alcohol or smoking, he does not have a history of recent travel, he does not have a history of recurrent infections. Exam Vital Signs (past 8 hours): - 10/27/18 13:38 10/27/18 16:25 10/27/18 18:00 Temperature 97.8 F 98.6 F Pulse Rate 85 85 90 Respiratory Rate 19 16 19 Blood Pressure 133/83 Blood Pressure [Left Arm] 132/82 154/92 H Pulse Oximetry 97 94 97 10/27/18 19:00 10/27/18 19:30 Temperature 102.5 F H Pulse Rate 100 H 98 H Respiratory Rate 20 Blood Pressure 151/90 H Blood Pressure [Left Arm] 156/89 H Pulse Oximetry 96 95 Oxygen Delivery Method Room Air Narrative Exam Narrative: he is alert and oriented but appears to be ill, he is diaphoretic, he is obviously in significant discomfort, neck is supple, HEENT is benign, lungs are clear, cor regular rate and rhythm, abdomen is benign, left upper extremity is remarkable for obvious marked swelling along the proximal shoulder in along the anterior deltoid and the deltopectoral interval, he is nontender posteriorly, there is mild tenderness along the anterior glenohumeral joint but none along the posterior glenohumeral joint, there is erythema and induration extending down to the level of the elbow, he has fair range of motion passively with his elbow does not have severe pain with gentle internal external rotation of his shoulder is unable to actively able to abduct or forward flex his shoulder due to severe pain, there is significant guarding, chest wall is be nign, then fires finger flexors and extensors wrist flexors and extensors, palpable radial and ulnar pulse Objective Labs Result Diagrams: 10/27/18 14:24 10/27/18 14:24 Labs: Laboratory Results - last 24 hr 10/27/18 10/27/18 10/27/18 14:24 14:24 14:24 WBC 25.5 H RBC 4.36 L Hgb 12.9 L Hct 38.8 L MCV 89.1 MCH 29.5 MCHC 33.1 RDW 13.4 Plt Count 432 H Neut % (Auto) Not Reportable Lymph % (Auto) Not Reportable [place] % (Auto) Not Reportable Eos % (Auto) Not Reportable Baso % (Auto) Not Reportable Lymph # (Auto) Not Reportable [place] # (Auto) Not Reportable Baso # (Auto) Not Reportable Total Counted 100 Seg Neutrophils % 84.0 H Band Neutrophils % 8.0 H Lymphocytes % (Manual) 3.0 L Monocytes % (Manual) 4.0 Eosinophils % (Manual) 1.0 L Neutrophils # (Manual) 46012 H RBC Morphology Normal morphology Sodium 136 L Potassium 3.9 Chloride 98 Carbon Dioxide 26 BUN 18 Creatinine 0.80 Estimated GFR > 60.0 BUN/Creatinine Ratio 22.5 H Glucose 240 H Lactate Calcium 8.6 Total Bilirubin 0.3 AST 44 ALT 71 Alkaline Phosphatase 111 Total Protein 8.5 H Albumin 3.7 Globulin 4.8 H Albumin/Globulin Ratio 0.8 L Procalcitonin 0.27 10/27/18 14:24 WBC RBC Hgb Hct MCV MCH MCHC RDW Plt Count Neut % (Auto) Lymph % (Auto) [place] % (Auto) Eos % (Auto) Baso % (Auto) Lymph # (Auto) [place] # (Auto) Baso # (Auto) Total Counted Seg Neutrophils % Band Neutrophils % Lymphocytes % (Manual) Monocytes % (Manual) Eosinophils % (Manual) Neutrophils # (Manual) RBC Morphology Sodium Potassium Chloride Carbon Dioxide BUN Creatinine Estimated GFR BUN/Creatinine Ratio Glucose Lactate 1.9 Calcium Total Bilirubin AST ALT Alkaline Phosphatase Total Protein Albumin Globulin Albumin/Globulin Ratio Procalcitonin Assessment & Plan Assessment & Plan narrative: severe left shoulder infection MRI scan shows evidence of an abscess and swelling in the subdeltoid region, there does not appear to be an obvious fluid collection or significant glenohumeral joint effusion, he may have a septic shoulder although clinically I think this represents an abscess without a septic joint. His white blood cell count is 25 and he appears seriously ill, I have recommended emergent irrigation and lissette ridement with drainage and removal of necrotic tissue as needed. Serious nature of the process procedure as well as his problem was discussed in detail. Time Spent With Patient Time with patient: 15-24 minutes
--- NOTE | 2018-10-27 20:01 | PM.OP.1 ---
Operative Date/Time/Diagnoses Date of procedure: 10/27/18 Time of procedure: 20:14 Pre-op diagnosis: Left shoulder abscess Post-op diagnosis: same Procedure & Clinicians Procedure: left shoulder excisional irrigation and debridement with debridement of some necrotic muscle Indications: 58-year-old gentleman who presented with a severe left shoulder infection is brought urgently to the operating room for irrigation and debridement Surgeon: Anna Ogden Anesthesia Type: General Operative Notes Findings: large pus pocket in the anterior aspect of the shoulder more than 50 cc of pus located predominantly in the subdeltoid bursa without obvious communication with the shoulder joint bicipital groove or AC joint Closure Type: not applicable Specimen(s): other ( multiple cultures) Estimated Blood Loss (mL): 100 Procedure in detail: Patient was brought to the operating room and underwent induction of a general anesthesia. Time-out was performed. Patient was placed in a beach chair position. Left upper extremity was prepped and draped in standard sterile fashion. An incision was made along the deltopectoral interval and extending distally along the anterior border of the deltoid. Marcaine with epinephrine was injected along the instep seizure insight and hemostasis was achieved. Deep Gelpi retractors were placed. Dissection was carried out down to the anterior border of the deltoid. There was a large amount of purulent material encountered. It was meticulously drained. A small amount of necrotic appearing deltoid and subdeltoid bursa was carefully debrided. Pulse lavage was used to meticulously irrigate the cavity. And I specifically checked proximally to make sure that there was no obvious communication with either the glenohumeral joint for the AC joint. Bicipital groove was checked did not appear to communicate with the bicipital groove. Distally there was some induration in the tissue tissues along the brachium down to the elbow. There did not appear to be a separate pus pocket. Combination of the finger and has suction was used to check specifically distally. This region was meticulously irrigated with normal saline. The wound was then packed with an antibiotic soaked sponge. The wound was dressed sterilely. Final hemostasis was achieved. Patient was transferred to recovery room in satisfactory condition. Complications: none Condition: stable Disposition: Acute Care Plan for aftercare: IV antibiotics. Check cultures. Patient is packed open okay to do dressing changes as needed. Continue IV antibiotics at least through and return to the operating room on for repeat I&D and possible DPC. Early return to the operating room if the patient's condition deteriorates.
--- NOTE | 2018-10-27 21:00 | SUR.OPER ---
Beach chair with Lea shoulder positioner on [employer] OR bed. Lower body on padded OR bed. Head in foam padded head cradle, secured with straps. Non-operative arm secured <90 degrees abduction. Pillow under knees. Safety belt at thigh. Cloth tape over blanket over lower legs.
[2018-10-27] MEDS: CEFAZOLIN VIAL 2 GM in SODIUM CHLORIDE 0.9% 100 ML 200 ML IV (21:10)
[2018-10-27] MEDS: BUPIVACAINE 0.25% W/ EPI 30 ML VIAL INJ (21:10)
[2018-10-27] MEDS: SODIUM CHLORIDE IRRIG SOLUTION 3,000 ML, GENTAMICIN 240 MG IRR (21:29)
[2018-10-27] MEDS: HYDROMORPHONE 2 MG INJ 0.5 MG IV ×2 (21:49→21:57)
[2018-10-27] MEDS: LABETALOL 5 MG 5 EACH IV (22:01)
--- NOTE | 2018-10-27 22:37 | SUR.PHASEI ---
Pt transferred to the floor. VS stable. IV saline locked. small to mod amt of medium pink drainage to lt shoulder drsg. Sling in place. Spouse at bedside.
--- NOTE | 2018-10-27 22:50 | PC.NURSE ---
2229- Pt arrived to room 204 from PACU via bed. oriented and drowsy, Left shoulder bulky drsg with 3 areas of serosang drainage, marked with pen, upper arm erythemia, and edema to forearm, hand, and fingers, sling in place and pillow under elbow. RFA SL. Provided with water, juice, ice chips. Bed alarm on, call light in reach. Duyen Stone (significant other), . HTN-157/84, tachy-103, SpO2 93% RA, temp-98.0. Duyen reports, pt will probably try to get out of bed without using call light.
[2018-10-28] VITALS (7 sets, daily range): BP systolic 110–148; BP diastolic 61–87; PULSE 83–107; RESP 16–20; TEMP 36.3–38.5; O2SAT 94–96
[2018-10-28] MEDS: CEFAZOLIN 2 GM/100 ML FROZ.PIGGY IV ×2 (01:51→10:02)
[2018-10-28] MEDS: VANCOMYCIN 1,000 MG/200 ML FROZ.PIGGY 200 MG IV (02:30)
[2018-10-28] MEDS: OXYCODONE IR 5 MG TABLET PO ×4 (03:59→18:30)
[2018-10-28] MEDS: ONDANSETRON 4 MG/2 ML INJ IV (04:04)
[2018-10-28 07:18] LABS: Hematocrit 34.7 % (41-53); Hemoglobin 11.7 g/dL (13.5-17.5); Mean Corpuscular HGB Conc 33.6 % (30-36); Mean Corpuscular Hemoglobin 29.5 PG (26-34); Mean Corpuscular Volume 87.9 fL (80-100); Platelet Count 448 X10^3/uL (150-400); Red Blood Cell Count 3.95 X10^6/uL (4.5-5.9); Red Cell Distribution Width 13.1 % (11.6-14.8); White Blood Cell Count 26.2 X10^3/uL (4.5-11.0)
[2018-10-28] MEDS: ACETAMINOPHEN 325 MG TABLET 975 MG PO ×3 (08:17→19:31)
[2018-10-28] MEDS: ASPIRIN EC 81 MG TABLET PO ×2 (10:06→19:31)
[2018-10-28] MEDS: POLYETHYLENE GLYCOL 3350 17 GM POWD.PACK PO (10:07)
--- NOTE | 2018-10-28 11:08 | PC.NURSE ---
Day Shift- Pt A&OX4, able to make needs known using call light. Rates 6/10 pain aching to left shoulder, ice pack intermittently. PRN Oxycodone given, pain tolerable. Pt unable to lift LUE off pillows. When this writers lifts LUE off pillow, pt does not have an increase in pain level. States LUE feels heavy, arm sling in place for ambulation. Left shoulder dressing intact with moderate amount of bloody shadowing that was marked passed nights assessment line. CMS+, radial pulse palpable. Edema noted from dressing to fingertips. Pt OOB with PT and ambulated 2 laps around [facility]. Tolerated well.
--- NOTE | 2018-10-28 11:40 | PT.IIE ---
Current Diagnoses Infective myositis, left shoulder (10/27/18) Surgery Performed Operation Date: 10/27/18 16:35 Actual Procedures p Incision and Drainage Wound/Extremity left shoulder(Left) - Anna Ogden MD Operation Date: 10/29/18 16:30 <No data on this case meets the specified criteria> Physical Therapy Inpatient Evaluation/Re-Eval M1 PT/OT-IP Prior Functional Status Start: 10/28/18 08:23 Freq: NEEDED Status: Active Protocol: Document 10/28/18 11:40 DLM (Rec: 10/28/18 11:53 DLM [id number]) Medical Review Prior Functional Status Medical History Reviewed Yes Diet/Fluid Consistency Regular Communication WNL Mobility and Gait Independent, no device, active Activities of Daily Living and IADL's Independent Prior Functional Level (Other details) works, had out-pt PT for rotator dysfunction in past Social History Household Members spouse Living Arrangements House Number of Floors (Floors) One Floor Number of Stairs To Enter/Railing? 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 M2 PT-IP Current Condition Start: 10/28/18 08:23 Freq: NEEDED Status: Active Protocol: Document 10/28/18 11:40 DLM (Rec: 10/28/18 11:53 DLM [id number]) Physical Therapy Current Condition Current Condition Evaluation Date 10/28/18 Treatment Diagnosis left shoulder infection, shoulder pain Onset Date 10/27/18 Precautions Shoulder Precautions Sling Other Precautions no orders for ROM left shoulder at this time, I&D on 10/17/18 with second I&D planned M3 PT-IP Subjective Start: 10/28/18 08:23 Freq: NEEDED Status: Active Protocol: Document 10/28/18 11:40 DLM (Rec: 10/28/18 11:53 DL [id number]) Subjective Physical Therapy Visit Type Type Initial Evaluation Visit Start Time 11:00 Visit Stop Time 11:40 Total Visit Minutes 40 Physical Therapy Visit Comments Patient Comments his pain is better than before the surgery, has not been able to sleep for the past week due to pain Patient Goals return home with his to help Therapy Pain Assessment Pain When Pain Assessed After Treatment Pain Present Pain Present Pain Reported Location Left Shoulder Intensity 1 Scale Used Numeric (1 - 10) Description Aching Pain Behaviors Guarding Pain Management Techniques Elevation Re-positioning Timing of Activity with Medications M4 PT-IP Mobility and Gait Start: 10/28/18 08:23 Freq: NEEDED Status: Active Protocol: Document 10/28/18 11:40 DLM (Rec: 10/28/18 11:53 DLM [id number]) PT-Bed Mobility Assessment Supine to Sit Supine to Sit Minimal Assistance Sit to Supine Sit to Supine Independent Scooting Scooting to Edge of Bed Independent PT-Transfer Assessment Sit to and From Stand Sit to and from Stand Standby Assistance Equipment Transfer Assistive Device Gait Belt Transfers Transfer Destination Bed Toilet Transfer Technique Stand Step Pivot Transfer Ability Level of Assist Standby Assistance Gait Assessment Gait Gait Assistance Required: Standby Assistance Distance (Feet) 300 Assistive Devices Assistive Device Gait Belt Comments Gait Comments mild decreased balance when up , sling in place to manage left shoulder PT-Balance Assessment Sitting Balance and Reactions Static Sitting Balance Ability Normal Dynamic Sitting Balance Ability Normal Standing Balance and Reactions Static Standing Balance Ability Fair Dynamic Standing Balance Ability Fair M5 PT-IP Objective Assessments Start: 10/28/18 08:23 Freq: NEEDED Status: Active Protocol: Document 10/28/18 11:40 DLM (Rec: 10/28/18 11:53 DL [id number]) Orientation Orientation/Cognition Level of Alertness Alert Orientation Name Age Birthday Month Date Year Day of Week Place Situation Language Function Ability No Deficits Noted Safety Awareness Understands Safety Issues Memory Description No Deficits Noted Gross Range of Motion Upper Extremity ROM Assessment Left Impaired Impairments pain with any attempt to move left shoulder, mild pain with end range left elbow flexion, good tolerance for wrist and hand ROM on left Lower Extremity ROM Assessment Within Functional Limits Strength Upper Extremity Strength Assessment Left Impaired Shoulder unable to use functionally due to pain from infection and I& D Elbow flexion 2+/5 Wrist able to move actively Hand moving actively Lower Extremity Strength Assessment Within Functional Limits Coordination Assessment Gross Coordination Gross Coordination WNL Sensation Assessment Sensation Gross Sensation WNL Muscle Tone Muscle Tone WNL Yes M6 PT-IP Treatment Start: 10/28/18 08:23 Freq: NEEDED Status: Active Protocol: Document 10/28/18 11:40 DLM (Rec: 10/28/18 11:53 DL [id number]) Physical Therapy Treatment Exercises Exercises Elbow Flexion/Extension Wrist ROM Hand ROM Education Education Provided Safety M7 PT-IP Assessment and Plan Start: 10/28/18 08:23 Freq: NEEDED Status: Active Protocol: Document 10/28/18 11:40 DLM (Rec: 10/28/18 11:53 DLM [id number]) PT Summary Assessment and Plan Potential Rehabilitation Potential Excellent Status of Condition at Evaluation Evolving Summary Impairments Pain ROM Strength Balance Gait Activity Tolerance Goals Gait Goal Independent Gait Distance 300 feet Days to Meet Goals 3 Frequency of Treatment Frequency Of Treatment Once a Day Treatment Plan Physical Therapy Treatment Plan Gait Training Therapeutic Exercise Balance Retraining Recommendations To Nursing Amount of Assist Needed Standby Assistance Discharge Recommendations PT Discharge Recommendations Home with Assistance Outpatient PT
--- NOTE | 2018-10-28 14:35 | OT.IP.TRT ---
Current Diagnoses Infective myositis, left shoulder (10/27/18) Surgery Performed Operation Date: 10/27/18 16:35 Actual Procedures p Incision and Drainage Wound/Extremity left shoulder(Left) - Anna Ogden MD Operation Date: 10/29/18 16:30 <No data on this case meets the specified criteria> Occupational Therapy Treatment Note M3 OT- IP Subjective and Pain Start: 10/28/18 14:39 Freq: Status: Active Protocol: Document 10/28/18 14:39 ALMA (Rec: 10/28/18 14:42 PJM [id number]) OT- Subjective Occupational Therapy Visit Type Type Administrative Note Visit Start Time 14:35 Notes OT referral received. Will hold OT eval of ADL skills with sling in place until after 2nd I&D planned for 10/29/18.
[2018-10-28] MEDS: CALCIUM CARBONATE 600 MG TABLET PO (18:23)
[2018-10-28] MEDS: MULTIVITAMIN 1 TABLET 1 TAB PO (18:23)
[2018-10-28] MEDS: ROSUVASTATIN 10 MG TABLET PO (18:23)
[2018-10-28] MEDS: CEFAZOLIN 1 GM/50 ML FROZ.PIGGY IV (18:30)
[2018-10-28] MEDS: SODIUM CHLORIDE 0.9% FLUSH 10 ML IV (19:35)
--- NOTE | 2018-10-28 22:53 | PC.NURSE ---
Pt is reg diet up to midnight, then from midnight to 9AM clears diet, then 9AM pt is NPO status. changed pt drsg @ 1999, gauze was saturated, and leaked onto bed linen, gown, and sling. Linen and gown changed, and new shoulder sling provided. RFA SL with ABO's. 2222- temp 101.3, gave 2100 meds, which included tylenol 975mg. Rdial pulse and CMS++.
[2018-10-29] VITALS (33 sets, daily range): BP systolic 120–169; BP diastolic 75–115; PULSE 82–109; RESP 12–20; TEMP 36.1–37.5; O2SAT 92–98; BMI 27.7
--- NOTE | 2018-10-29 | DI.ECHO.S_ITS ---
[facility]---------+ [facility] +---------+ : : [address] [address] : : : : [id number] : : : : Phone: [phone]+ Echocardiogram Report + + :Name: ERNIE ALEX Study Date: 10/30/2018 Height: 63 in : :[facility] Weight: 210 lb : : Gender: Male BSA: 2.0 m2 : :: 1960 Age: 58 yrs BP: 127/74 mmHg: :Reason For Study: RULE OUT ENDOCARDITIS : : Performed By: Roya Maradiaga : :Referring: TYLER PEDRO : + + Interpretation Summary Normal sinus rhythm. Normal LV size and wall thickness; normal wall motion and LV systolic function. EF is 60-65%. Normal chamber sizes. No significant valvular abnormalities. No obvious vegetations. However, if endocarditis is clinically suspected, recommend ALEENA. Procedure: A two-dimensional transthoracic echocardiogram with color flow and Doppler was performed. The study quality was technically adequate. There is no prior echocardiogram noted for this patient. Patient's windows had limited access due to a large bandage on the chest from a large mass that is draining. Patient unable to lay on left side due swelling and pain from the mass. The patient was in sinus tachycardia with heart rates between 94-106 bpm during the exam. Left Ventricle: The left ventricle is grossly normal size. The ejection fraction is estimated to be 60-65%. Right Ventricle: The right ventricle is normal in size and function. Atria: The left atrial size is normal. Right atrium is small. There is no Doppler evidence for an interatrial shunt. Mitral Valve: The mitral valve leaflets appear mildly thickened, but open well. There is no mitral regurgitation noted. Aortic Valve: There is mild aortic valve sclerosis. The aortic valve opens well. No aortic regurgitation is present. Tricuspid Valve: The tricuspid valve is not well visualized, but is grossly normal. There is a trace or physiologic amount of tricuspid regurgitation. Pulmonic Valve: The pulmonic valve is not well visualized. Great Vessels: The aortic root is mildly dilated. The ascending aorta could not be visualized. The aortic arch is normal in size. The pulmonary artery is normal size. The IVC is of normal diameter and collapses greater than 50% with a sniff. This suggests a low right atrial pressure of 3 mm Hg. Pericardium/ Pleura There is no pericardial effusion. There is no pleural effusion. MMode/2D Measurements & Calculations LVOT diam: 2.3 cm LA A2 area: 9.7 cm2 Ao root diam: 4.1 cm LA A4 area: 12.9 cm2 Ao Arch Diam (Prox Trans): 2.8 cm LA length (vol): 4.1 cm LA vol: 26.0 ml LA vol index: 13.2 ml/m2 RA long axis: 4.6 cm RVD1 (basal): 1.9 cm RA area: 8.4 cm2 RA vol: 12.9 ml RA : 6.5 ml/m2 IVC diam: 1.2 cm Doppler Measurements & Calculations Ao V2 max: 121.0 cm/sec LVOT Max Rajinder: 107.2 cm/sec Ao V2 mean: 90.8 cm/sec LV V1 max P.6 mmHg Ao max P.9 mmHg LV V1 VTI: 18.4 cm Ao mean P.5 mmHg MARÍA(I,D): 4.3 cm2 Ao V2 VTI: 18.5 cm MARÍA(V,D): 3.8 cm2 sev ratio: 1.00 MARÍA indexed to BSA (cm^2/m^2): 2.2 MV E max rajinder: 68.7 cm/sec SV(LVOT): 79.2 ml MV A max rajinder: 102.5 cm/sec MV E/A: 0.67 Med Peak E' Rajinder: 7.9 cm/sec E/E' med: 8.7 Lat Peak E' Rajinder: 11.2 cm/sec E/E' lat: 6.1 E/e' average: 7.4 MV dec time: 0.20 sec Electronically signed by: Lucia Rodríguez M.D. on Reading Physician:10/30/2018 02:16 PM
[2018-10-29] MEDS: OXYCODONE IR 5 MG TABLET PO ×2 (00:58→07:39)
[2018-10-29] MEDS: CEFAZOLIN 1 GM/50 ML FROZ.PIGGY IV ×3 (02:29→21:21)
[2018-10-29] MEDS: CODEINE/GUAIFENESIN LIQUID 5ML UDC 10 ML PO (03:19)
--- NOTE | 2018-10-29 06:36 | PC.NURSE ---
Pt is AxOx3, VSS, temp this AM 99.5F. Percolone 5mg X1 given. Guaf & Codeine syrup given for dry hacking cough that was causing shoulder pain. Left shoulder dressing saturated with sero-sanguinous blood through three 4X4 gauzes and an abdominal pad; changed this morning at 0600, packing left untouched, secondary dressing applied. Pt frequently voiding throughout the shift. On clear liquids throughout night, will be NPO at 0900.
[2018-10-29] MEDS: ACETAMINOPHEN 325 MG TABLET 975 MG PO ×2 (07:39→14:11)
[2018-10-29 07:41] LABS: Hematocrit 36.4 % (41-53); Hemoglobin 12.2 g/dL (13.5-17.5); Mean Corpuscular HGB Conc 33.7 % (30-36); Mean Corpuscular Hemoglobin 29.7 PG (26-34); Mean Corpuscular Volume 88.3 fL (80-100); Platelet Count 512 X10^3/uL (150-400); Red Blood Cell Count 4.12 X10^6/uL (4.5-5.9); Red Cell Distribution Width 13.3 % (11.6-14.8)
[2018-10-29 07:45] LABS: White Blood Cell Count 25.5 X10^3/uL (4.5-11.0)
[2018-10-29 07:46] LABS: Add Manual Diff / Slide Review YES
--- NOTE | 2018-10-29 07:50 | PM.PNPO.1 ---
Subjective Date Patient Seen: 10/29/18 Time Patient Seen: 07:50 Interval history: Pain moderate. Denies fever chills. Difficulty sleeping secondary to left shoulder discomfort. No fever chills. No nausea vomiting. Exam Vital Signs (past 8 hours): - 10/29/18 00:55 10/29/18 05:00 Temperature 97.6 F 99.5 F Pulse Rate 92 H 102 H Respiratory Rate 18 18 Blood Pressure 132/77 130/91 H Pulse Oximetry 96 96 Oxygen Delivery Method Room Air Oxygen Flow Rate 0 Narrative Exam Narrative: 58-year-old male sitting comfortably at bedside chair in no apparent distress. Left shoulder dressing is clean, dry and intact. No edema left upper extremity. Radial pulse 2 +. Sensation grossly intact to light touch. Motor functions intact distal left upper extremity. Objective Labs Result Diagrams: 10/29/18 06:42 10/27/18 14:24 Labs: Laboratory Results - last 24 hr 10/29/18 06:42 WBC 25.5 H RBC 4.12 L Hgb 12.2 L Hct 36.4 L MCV 88.3 MCH 29.7 MCHC 33.7 RDW 13.3 Plt Count 512 H Neut % (Auto) Not Reportable Lymph % (Auto) Not Reportable [place] % (Auto) Not Reportable Eos % (Auto) Not Reportable Baso % (Auto) Not Reportable Lymph # (Auto) Not Reportable [place] # (Auto) Not Reportable Baso # (Auto) Not Reportable Assessment & Plan Post-op Postoperative Procedures Operation Date: 10/27/18 16:35 Actual Procedures Side Surgeon p Incision and Drainage Wound/Extremity left shoulder Left Anna Leyla Ogden MD Postop day 2. Status post left shoulder excisional irrigation and debridement with debridement of some necrotic muscle. Currently on IV cephazolin. Gram stain positive for cocci in chains suggestive of strep species. Blood cultures no growth after 24 hr. x2. Patient will be NPO this morning return operating room today if necessary for repeat I and D. Operation Date: 10/29/18 16:30 <No data on this case meets the specified criteria> Quality VTE Deep Vein Thrombosis/Pulmonary Embolism Present on Admission: No
--- NOTE | 2018-10-29 07:52 | PC.NURSE ---
Addendum entered by Marisol Galaviz R.N. 10/29/18 09:45: Rec'd call from [facility] at 0925, left shoulder fluid +group A strep. Spoke with OLYA Davidson and made aware of results at 0927. Original Note: Addendum entered by Marisol Galaviz R.N. 10/29/18 09:45: Pt now NPO, update given to pt's Duyen at bedside. Original Note: Day Shift- Pt aware of having clear liquid diet for breakfast until 0900 then NPO. Left shoulder abd dressing CDI, CMS+, LUE pink, edematous, radial pulse strong, pt states LUE is heavy, uses his right hand to assist perform exercises to left hand. Spoke with SEGUN Miguel at 0750 for update of plan. Surgery team will assess WBC from this AM lab draw and determine if surgery will occur. MAde also aware that pt has a dry cough, one time dose of guaf/codeine was effective last night. Pt also requesting a sleeping aid.
--- NOTE | 2018-10-29 07:55 | P.PN_ITS ---
Subjective Date Patient Seen: 10/29/18 Time Patient Seen: 07:50 Interval history: Pain moderate. Denies fever chills. Difficulty sleeping secondary to left shoulder discomfort. No fever chills. No nausea vomiting. Exam Vital Signs (past 8 hours): - 10/29/18 00:55 10/29/18 05:00 Temperature 97.6 F 99.5 F Pulse Rate 92 H 102 H Respiratory Rate 18 18 Blood Pressure 132/77 130/91 H Pulse Oximetry 96 96 Oxygen Delivery Method Room Air Oxygen Flow Rate 0 Narrative Exam Narrative: 58-year-old male sitting comfortably at bedside chair in no apparent distress. Left shoulder dressing is clean, dry and intact. No edema left upper extremity. Radial pulse 2 +. Sensation grossly intact to light [place] ch. Motor functions intact distal left upper extremity. Objective Labs Result Diagrams: 10/29/18 06:42 10/27/18 14:24 Labs: Laboratory Results - last 24 hr 10/29/18 06:42 WBC 25.5 H RBC 4.12 L Hgb 12.2 L Hct 36.4 L MCV 88.3 MCH 29.7 MCHC 33.7 RDW 13.3 Plt Count 512 H Neut % (Auto) Not Reportable Lymph % (Auto) Not Reportable [place] % (Auto) Not Reportable Eos % (Auto) Not Reportable Baso % (Auto) Not Reportable Lymph # (Auto) Not Reportable [place] # (Auto) Not Reportable Baso # (Auto) Not Reportable Assessment & Plan Post-op Postoperative Procedures Operation Date: 10/27/18 16:35 Actual Procedures Side Surgeon p Incision and Drainage Wound/Extremity left shoulder Left Anna Leyla Ogden MD Postop day 2. Status post left shoulder excisional irrigation and debridement with debridement of some necrotic muscle. Currently on IV cephazolin. Gram stain positive for cocci in chains suggestive of strep species. Blood cultures no growth after 24 hr. x2. Patient will be NPO this morning return operating room today if necessary for repeat I and D. Operation Date: 10/29/18 16:30 <No data on this case meets the specified criteria> Quality VTE Deep Vein Thrombosis/Pulmonary Embolism Present on Admission: No
[2018-10-29 08:27] LABS: Neutrophils Absolute Manual 20910 /uL (3000-5900); RBC Morphology Normal Morphology; Total Cells Counted 100
[2018-10-29] MEDS: SODIUM CHLORIDE 0.9% FLUSH 10 ML IV (09:39)
[2018-10-29] MEDS: SODIUM CHLORIDE 0.9% 250 ML 21 ML IV (09:40)
--- NOTE | 2018-10-29 11:46 | PT.IPTN ---
Current Diagnoses Infective myositis, left shoulder (10/27/18) Surgery Performed Operation Date: 10/27/18 16:35 Actual Procedures p Incision and Drainage Wound/Extremity left shoulder(Left) - Anna Ogden MD Operation Date: 10/29/18 16:30 <No data on this case meets the specified criteria> Physical Therapy Treatment Note M2 PT-IP Current Condition Start: 10/28/18 08:23 Freq: NEEDED Status: Active Protocol: Document 10/28/18 11:40 DLM (Rec: 10/28/18 11:53 DLM [id number]) Physical Therapy Current Condition Current Condition Evaluation Date 10/28/18 Treatment Diagnosis left shoulder infection, shoulder pain Onset Date 10/27/18 Precautions Shoulder Precautions Sling Other Precautions no orders for ROM left shoulder at this time, I&D on 10/17/18 with second I&D planned M3 PT-IP Subjective Start: 10/28/18 08:23 Freq: NEEDED Status: Active Protocol: Document 10/29/18 11:44 SA (Rec: 10/29/18 11:46 SA [id number]) Subjective Physical Therapy Visit Type Type Patient Refusal Visit Start Time 11:00 Notes Pt declines PT this AM, stating he is hungry, thirsty and very tired. Still waiting to have surgery and is NPO. Provided pt with mouth swabs. M4 PT-IP Mobility and Gait Start: 10/28/18 08:23 Freq: NEEDED Status: Active Protocol: Document 10/28/18 11:40 DLM (Rec: 10/28/18 11:53 DLM [id number]) PT-Bed Mobility Assessment Supine to Sit Supine to Sit Minimal Assistance Sit to Supine Sit to Supine Independent Scooting Scooting to Edge of Bed Independent PT-Transfer Assessment Sit to and From Stand Sit to and from Stand Standby Assistance Equipment Transfer Assistive Device Gait Belt Transfers Transfer Destination Bed Toilet Transfer Technique Stand Step Pivot Transfer Ability Level of Assist Standby Assistance Gait Assessment Gait Gait Assistance Required: Standby Assistance Distance (Feet) 300 Assistive Devices Assistive Device Gait Belt Comments Gait Comments mild decreased balance when up , sling in place to manage left shoulder PT-Balance Assessment Sitting Balance and Reactions Static Sitting Balance Ability Normal Dynamic Sitting Balance Ability Normal Standing Balance and Reactions Static Standing Balance Ability Fair Dynamic Standing Balance Ability Fair M5 PT-IP Objective Assessments Start: 10/28/18 08:23 Freq: NEEDED Status: Active Protocol: Document 10/28/18 11:40 DLM (Rec: 10/28/18 11:53 [facility] [id number]) Orientation Orientation/Cognition Level of Alertness Alert Orientation Name Age Birthday Month Date Year Day of Week Place Situation Language Function Ability No Deficits Noted Safety Awareness Understands Safety Issues Memory Description No Deficits Noted Gross Range of Motion Upper Extremity ROM Assessment Left Impaired Impairments pain with any attempt to move left shoulder, mild pain with end range left elbow flexion, good tolerance for wrist and hand ROM on left Lower Extremity ROM Assessment Within Functional Limits Strength Upper Extremity Strength Assessment Left Impaired Shoulder unable to use functionally due to pain from infection and I& D Elbow flexion 2+/5 Wrist able to move actively Hand moving actively Lower Extremity Strength Assessment Within Functional Limits Coordination Assessment Gross Coordination Gross Coordination WNL Sensation Assessment Sensation Gross Sensation WNL Muscle Tone Muscle Tone WNL Yes M6 PT-IP Treatment Start: 10/28/18 08:23 Freq: NEEDED Status: Active Protocol: Document 10/28/18 11:40 DLM (Rec: 10/28/18 11:53 [facility] [id number]) Physical Therapy Treatment Exercises Exercises Elbow Flexion/Extension Wrist ROM Hand ROM Education Education Provided Safety M7 PT-IP Assessment and Plan Start: 10/28/18 08:23 Freq: NEEDED Status: Active Protocol: Document 10/28/18 11:40 DLM (Rec: 10/28/18 11:53 [facility] [id number]) PT Summary Assessment and Plan Potential Rehabilitation Potential Excellent Status of Condition at Evaluation Evolving Summary Impairments Pain ROM Strength Balance Gait Activity Tolerance Goals Gait Goal Independent Gait Distance 300 feet Days to Meet Goals 3 Frequency of Treatment Frequency Of Treatment Once a Day Treatment Plan Physical Therapy Treatment Plan Gait Training Therapeutic Exercise Balance Retraining Recommendations To Nursing Amount of Assist Needed Standby Assistance Discharge Recommendations PT Discharge Recommendations Home with Assistance Outpatient PT
--- NOTE | 2018-10-29 12:33 | OT.IP.TRT ---
Current Diagnoses Infective myositis, left shoulder (10/27/18) Surgery Performed Operation Date: 10/27/18 16:35 Actual Procedures p Incision and Drainage Wound/Extremity left shoulder(Left) - Anna Ogden MD Operation Date: 10/29/18 16:30 <No data on this case meets the specified criteria> Occupational Therapy Treatment Note M3 OT- IP Subjective and Pain Start: 10/28/18 14:39 Freq: Status: Active Protocol: Document 10/29/18 12:32 ALMA (Rec: 10/29/18 12:33 [email or web address] [id number]) OT- Subjective Occupational Therapy Visit Type Type Administrative Note Visit Start Time 12:30 Notes OT to hold today as pt to go to surgery for second I&D of L shoulder. Will initiate OT eval tomorrow as medical status permits. No charge.
--- NOTE | 2018-10-29 15:58 | PC.NURSE ---
1530- Bedside report completed. Surgery staff here to escort pt to OR. Pt ambulated to BR with steady gait to void. Slightly diaphoretic. Denies numbness/tingling burning. Dsg CDI. L radial pulse strong. Pt reports decreases swelling to LUE since yesterday.
[2018-10-29] MEDS: LACTATED RINGERS 1,000 ML 42 ML IV (15:59)
--- NOTE | 2018-10-29 16:17 | CM.DANOTE ---
Discharge Planning/Care Management DCP: assessment: case received, EMR reviewed. Discussed in Team Rounds. Pt is going to surgery today for I&D # 2. PT and OT are ordered. Pt is a 58 year old male who admitted to care of orthopedic Surgeon: Dr. Alin timmons of 10/27. Payer: [facility] out of [facility]. PCP: Dr. Loya Have been unable to see pt yet due to his visits to the OR but do plan to see him tomorrow after Team Rounds and follow for any d/c needs that may arise. Ortho PA Mitzi today states that home on oral antibiotics is expected as infection is not considered to be in the joint. CM Discharge Assessment Start: 10/29/18 16:16 Freq: Status: Active Protocol: Document 10/29/18 16:16 ITV (Rec: 10/29/18 16:17 ITV [id number]) Discharge Planning Assessment Advance Directives? No History Provided By Medical Record Prior Living Arrangements House Household Members spouse Review Status In Process Next Review Type Continued Stay Review
--- NOTE | 2018-10-29 16:28 | SUR.OPER ---
Beach chair on padded OR bed. Head on gel donut secured with tape over gauze. Non-operative arm secured <90 degrees abduction on padded arm board. Pillow under knees. Safety belt at thigh. Cloth tape over blanket over lower legs.
--- NOTE | 2018-10-29 17:42 | PM.OP.1 ---
Operative Date/Time/Diagnoses Date of procedure: 10/29/18 Time of procedure: 17:03 Pre-op diagnosis: severe left shoulder strep infection Post-op diagnosis: same Procedure & Clinicians Procedure: right shoulder irrigation and excisional debridement of necrotic fat and dressing change Same procedure as scheduled: Yes Indications: severe left shoulder infection Surgeon: Anna Ogden Click Yes if Unassisted: Yes Anesthesia Type: General Operative Notes Findings: small amount of necrotic fat, no new pockets of pus or evidence of extension of the infection Closure Type: not applicable Specimen(s): none sent Estimated Blood Loss (mL): 50 Blood products transfused: none Procedure in detail: Patient is brought to the operating room and underwent induction of a general anesthesia. His left upper extremities prepped draped standard sterile fashion. time-out was performed. patient's previous packing was carefully removed. There was no gross purulence around his previous packing. I specifically checked the posterior aspect of his shoulder and along his brachium both of those were improved in comparison to previously. There is no extension of infection along his chest wall or [place]. He was prepped and draped standard sterile fashion. a small amount of necrotic fat was debrided from the subdeltoid region. I am specifically manipulated his shoulder placed in through a full range of motion and also carefully palpate along the glenohumeral joint. There did not appear to be evidence of a rotator cuff tear or failure of his subscap and thus no evidence of specific communication with the shoulder joint. there was no evidence of inflammation or swelling along his bicipital groove her bicipital tendon. I specifically checked distally to make sure that there was no additional pockets of pus running down along his brachium. The wound was then meticulously scrubbed and irrigated with a total of 3 L dilute antibiotic irrigation. clinically he is improving but he has not responded to the extent that I think it is safe for closure and thus he was packed open with a Kerlix. The wound was dressed sterilely. Patient tolerated the procedure well. complications none. Complications: none Condition: stable Disposition: Acute Care Plan for aftercare: Continue IV antibiotics. We will switch him to IV penicillin for more frequent and higher dosing. Still awaiting sensitivities from his strep infection. Consideration of delayed primary closure when clinically his infection appears to be improved. His arm and wound was significantly better than it was at his previous operation.
[2018-10-29] MEDS: MEPERIDINE 50 MG/ML 25 MG IV ×2 (17:44→17:49)
[2018-10-29] MEDS: HYDROMORPHONE 2 MG INJ 0.5 MG IV ×4 (17:58→18:37)
[2018-10-29] MEDS: KETOROLAC 30 MG/ML VIAL IV (18:15)
--- NOTE | 2018-10-29 18:23 | SUR.PHASEI ---
Continmues to have pain issues. demerol, Dilaudid and Ketorolac given. If continuing will contact Dr Medrano about potential for block.
--- NOTE | 2018-10-29 18:50 | SUR.PHASEI ---
Family updated on prolonged PACU stay due to pain control and concern for resp response to analgesics.
--- NOTE | 2018-10-29 19:29 | SUR.PHASEI ---
Has been stable for BP even if it is higher than usual. Remains of O2 with sats at times dipping to 92% but any drop is accompanied by spontaneous recovery. More importantly no drop in resp rate seen. Pain more controlled. with rating at 4. Tending to doze intermittently now. Pupils are smaller than earlier so no additional analgesic will be given now. [facility] for transfer to per d/c criteria.
[2018-10-29] MEDS: PENICILLIN G POTASSIUM 3,000,000 UNIT/50 ML FROZ.PIGGY 100 UNIT IV ×2 (20:26→23:06)
--- NOTE | 2018-10-29 22:22 | P.CONS_ITS ---
History of Present Illness Date Patient Seen: 10/29/18 Time Patient Seen: 20:42 Chief complaint: left shoulder pain and swelling Reason for consult: Request for pathology assistant with medical management related to streptococcal inf Requesting provider: Anna Ogden Narrative: This is a 58-year-old male patient with history of hyperlipidemia who was admitted to the hospital on 10/27/2018 with pain and redness left upper arm and shoulder. The pain had been present for 1 week without history of trauma or injury. The patient had been seen in the 4 days prior for the same complaint initially treated with Valium and subsequently with prednisone. Neither these medications were beneficial and the pain was progressive the patient subsequently developed fevers and chills prompting him to present to the ER for evaluation. The patient was found to have a left shoulder infection in the subdeltoid region without septic joint per evaluation by Dr. Ogden. The patient was initially taken to surgery for incision and drainage a severe shoulder in fection on 10/27. Patient was again taken to the OR today for irrigation and excisional debridement of necrotic fat of the left shoulder. The patient wound cultures had found a strep pyogenes which is currently being treated with penicillin. Blood cultures have been drawn but are yet pending. The patient is evaluated in his room postoperatively resting quietly with a clean dry dressing of the left shoulder with pain rated at 2/10. He does describe throbbing of left elbow. He denies further fevers or chills. He has had no recent complaints of illness including nasal congestion or sore throat, shortness of breath or cough. He has had no chest pain, no abdominal pain and denies nausea vomiting, diarrhea or constipation. [facility] Medical History Hyperlipidemia (Acute) Social History household members: spouse Smoking Status: Never smoker Social History household members: spouse Smoking Status: Never smoker additional social history: The patient lives in a single family home with his to whom he has been for 10 years. His father is related to elevated cholesterol cardiovascular disease status post bypass and smoking. His mother has a history of diabetes. He has 3 siblings 2 sisters and 1 brother all of whom he described as in good health. 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 Comment: The patient lives in a single family home with his to whom he has been for 10 years. His father is related to elevated cholesterol cardiovascular disease status post bypass and smoking. His mother aranda s a history of diabetes. He has 3 siblings 2 sisters and 1 brother all of whom he described as in good health. 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 Meds Home Medications Medication Instructions Recorded Confirmed Type Calcium 1 tab PO QPM 10/27/18 10/27/18 History aspirin 81 mg PO QPM 10/27/18 10/27/18 History diazepam 5 mg PO Q4H PRN 10/27/18 10/27/18 History multivitamin 1 tab PO QPM 10/27/18 10/27/18 History prednisone 20 mg PO DAILY 10/27/18 10/27/18 History rosuvastatin 10 mg PO QPM 10/27/18 10/27/18 History Allergies Allergy/AdvReac Type Severity Reaction Status Date / Time almond Allergy Intermediate Hives Verified 10/27/18 19:27 peanut Allergy Intermediate Hives Verified 10/27/18 19:27 walnut Allergy Intermediate Hives Verified 10/27/18 19:27 latex Allergy Mild Rash Verified 10/27/18 19:27 Review of Systems Review of Systems All systems reviewed & are unremarkable except as noted in HPI and below Exam Vital Signs (past 8 hours): - 10/29/18 15:36 10/29/18 15:56 10/29/18 17:26 Temperature 98.4 F 98.4 F 97.2 F L Pulse Rate 90 84 94 H Respiratory Rate 18 20 20 Blood Pressure 120/75 129/80 141/95 H Pulse Oximetry 96 97 95 10/29/18 17:31 10/29/18 17:35 10/29/18 17:40 Temperature Pulse Rate 93 H 90 90 Respiratory Rate 18 20 20 Blood Pressure 148/93 H 147/93 H 149/95 H Pulse Oximetry 96 95 94 10/29/18 17:46 10/29/18 17:55 10/29/18 18:00 Temperature Pulse Rate 90 94 H 92 H Respiratory Rate 16 15 15 Blood Pressure 159/99 H 163/100 H 154/99 H Pulse Oximetry 96 94 94 10/29/18 18:10 10/29/18 18:16 10/29/18 18:22 Temperature 98.4 F Pulse Rate 92 H 98 H 96 H Respiratory Rate 20 20 16 Blood Pressure 164/98 H 160/91 H 150/99 H Pulse Oximetry 93 94 95 10/29/18 18:26 10/29/18 18:31 10/29/18 18:36 Temperature 98.1 F Pulse Rate 91 H 92 H 88 Respiratory Rate 16 18 12 Blood Pressure 148/95 H 161/99 H 160/100 H Pulse Oximetry 92 96 97 10/29/18 18:45 10/29/18 18:50 10/29/18 18:55 Temperature 97.8 F Pulse Rate 82 88 88 Respiratory Rate 14 15 14 Blood Pressure 163/97 H 165/93 H 164/102 H Pulse Oximetry 96 96 97 10/29/18 19:05 10/29/18 19:15 10/29/18 19:22 Temperature 98.2 F Pulse Rate 90 88 84 Respiratory Rate 14 16 18 Blood Pressure 167/100 H 156/101 H 167/98 H Pulse Oximetry 97 93 92 10/29/18 19:26 10/29/18 19:31 10/29/18 19:36 Temperature 98.8 F Pulse Rate 85 86 84 Respiratory Rate 16 15 16 Blood Pressure 169/97 H 151/100 H 160/96 H Pulse Oximetry 93 95 94 10/29/18 19:50 10/29/18 20:20 10/29/18 20:53 Temperature 97.8 F 97.3 F L 97.0 F L Pulse Rate 88 92 H 94 H Respiratory Rate 16 16 16 Blood Pressure 149/94 H 144/115 H 140/91 H Pulse Oximetry 97 98 96 10/29/18 21:50 Temperature 97.8 F Pulse Rate 90 Respiratory Rate 18 Blood Pressure 129/81 Pulse Oximetry 97 Oxygen Delivery Method Room Air Oxygen Flow Rate 2 Narrative Exam Narrative: GENERAL APPEARANCE: well developed, well nourished, lying semi recumbent in bed HEAD: Normocephalic, atraumatic, no scalp lesions. EYES: pupils equal, round, reactive to light and accommodation, sclera non- icteric, extraocular movement intact . EARS: normal external structures, no ear pain NOSE: no rhinorrhea ORAL CAVITY: mucosa moist without lesions or exudate, palate normal, tongue in midline. THROAT: normal, no erythema, no exudate, pharynx normal, uvula midline. NECK/THYROID: neck supple, no jugular venous distention, no carotid bruit, no thyromegaly, trachea midline. LYMPH NODES: no cervical or supraclavicular lymphadenopathy. SKIN: warm and dry, no suspicious lesions, no rashes, good turgor. HEART: regular rate and rhythm, S1-S2, no murmur appreciated, without rubs or gallops, brisk capillary refill, no edema LUNGS: clear to auscultation bilaterally, no coarseness crackles or wheezing, no cough present CHEST: Symmetrical movement, no accessory muscle use, no pain to AP and lateral compression. ABDOMEN: Soft, no distention, no epigastric or abdominal tenderness on palpation, no guarding or peritoneal signs, no organomegaly, no flank or suprapubic tenderness BACK: nontender to palpation EXTREMITIES: Surgical dressing over anterior left shoulder that is clean dry and intact, pain with movement of shoulder or elbow, distal CMS intact, distal sensation intact light touch, moves all other extremities, strength is 5/5 and symmetrical, well perfused. NEUROLOGIC: AAO x4, drowsy but without focal neurological deficits, cranial nerves II-XII grossly intact PSYCH: Drowsy but responsive and cooperative, cognitive function intact, good eye contact, stable mood with congruent affect Objective Labs Result Diagrams: 10/29/18 06:42 10/27/18 14:24 Labs: Laboratory Results - last 24 hr 10/29/18 10/29/18 06:42 06:42 WBC 25.5 H RBC 4.12 L Hgb 12.2 L Hct 36.4 L MCV 88.3 MCH 29.7 MCHC 33.7 RDW 13.3 Plt Count 512 H Neut % (Auto) Not Reportable Lymph % (Auto) Not Reportable [place] % (Auto) Not Reportable Eos % (Auto) Not Reportable Baso % (Auto) Not Reportable Lymph # (Auto) Not Reportable [place] # (Auto) Not Reportable Baso # (Auto) Not Reportable Total Counted 100 Seg Neutrophils % 80.0 H Band Neutrophils % 2.0 L Lymphocytes % (Manual) 11.0 L Monocytes % (Manual) 7.0 Neutrophils # (Manual) 96693 H RBC Morphology Normal morphology Hemoglobin A1c 6.0 Assessment & Plan Assessment & Plan narrative: 1. Left shoulder infection, active -status post incision and drainage on 10/27/2018 and debridement and irrigation 3 03/23/[address] Ogden -surgical dressing is clean dry and intact -postoperative care directed by Dr. Ogden 2. Wound infection with strep pyogenes, active -elevated white blood cell count at 25.5, elevated neutrophil count and bands of 2.0. Blood cultures have been drawn and are pending - patient is receiving penicillin G, 3 million units IV every 4 hours and received Ancef perioperatively -will add a procalcitonin laboratory studies -will obtain an echocardiogram. 3. Hyperglycemia, present on admission, active -patient with a blood glucose on admission 240 mg per dL. -patient denies personal history diabetes but had briefly been on prednisone therapy, has current infection as well as family history of diabetes. -hemoglobin A1c was evaluated this morning and found to be 6.0 consistent with prediabetes -will control hyperglycemia with fingerstick blood sugars AC and HS and cover with low range sliding scale insulin -will recheck chemistries in the morning 4. Hyperlipidemia, chronic, presumed stable -patient self reports that his cholesterol is well controlled on rosuvastatin 10 mg nightly which has been continued. Thank you for allowing us to participate in the care of this pleasant gentleman.
[2018-10-30] VITALS (7 sets, daily range): BP systolic 120–149; BP diastolic 74–84; PULSE 94–102; RESP 16–20; TEMP 36.6–38.5; O2SAT 92–98
[2018-10-30] MEDS: HYDROMORPHONE 0.5 MG INJ IV ×3 (01:58→06:54)
[2018-10-30] MEDS: PENICILLIN G POTASSIUM 3,000,000 UNIT/50 ML FROZ.PIGGY 100 UNIT IV ×5 (03:46→19:50)
[2018-10-30 07:23] LABS: BUN Creatinine Ratio 17.5 (6-22); Blood Urea Nitrogen 14 mg/dL (9-20); Calcium 8.2 mg/dL (8.4-10.2); Carbon Dioxide 29 mmol/L (22-32); Chloride 93 mmol/L (98-107); Estimated Glomerular Filt Rate > 60.0 mL/min (>60); Glucose 99 mg/dL (70-100); HEMOLYSIS < 15 (0-50); Potassium 4.8 mmol/L (3.4-5.1); Sodium 129 mmol/L (137-145)
[2018-10-30 07:43] LABS: Add Manual Diff / Slide Review NO; Basophils Absolute Auto 0 /uL (0-100); Basophils Percent Auto 0.2 % (0-2); Eosinophils Absolute Auto 100 /uL (0-450); Eosinophils Percent Auto 0.5 % (2-4); Hematocrit 35.4 % (41-53); Lymphocytes Absolute Auto 2000 /uL (1100-4500); Lymphocytes Percent Auto 10.5 % (25-40); Mean Corpuscular HGB Conc 33.8 % (30-36); Mean Corpuscular Hemoglobin 29.6 PG (26-34); Mean Corpuscular Volume 87.8 fL (80-100); Monocytes Absolute Auto 800 /uL (0-900); Monocytes Percent Auto 4.1 % (3-14); Neutrophils Absolute Auto 16000 /uL (1500-7000); Neutrophils Percent Auto 84.7 % (50-75); Platelet Count 581 X10^3/uL (150-400); Red Blood Cell Count 4.03 X10^6/uL (4.5-5.9); White Blood Cell Count 18.9 X10^3/uL (4.5-11.0)
[2018-10-30 08:01] LABS: Procalcitonin 0.14 ng/mL (<0.5)
--- NOTE | 2018-10-30 08:58 | P.PN_ITS ---
Subjective Date Patient Seen: 10/30/18 Interval history: Patient is seen bedside status post I and D of the left sh oulder on 10/27/2018 and 10/29/[address] Ogden. Patient is postop day 3 and 1 respectively. He is doing well, denies any fevers chills. Gram stains grew pansensitive group A strep, no growth in blood cultures still. Pain is well controlled at this time. Dressing is slightly saturated toward the axilla. Otherwise clean dry and intact. White count is down to 18.9 today. Patient feels that he is ?doing much better today.? Exam Vital Signs (past 8 hours): - 10/30/18 02:00 10/30/18 06:01 10/30/18 06:46 Temperature 98.3 F 97.8 F Pulse Rate 97 H 97 H Respiratory Rate 16 16 Blood Pressure 149/84 H 120/81 Pulse Oximetry 98 97 Oxygen Delivery Method Nasal Cannula Oxygen Flow Rate 2 Narrative Exam Narrative: Well-developed well-nourished no acute distress alert oriented x3. Dressing on left shoulder saturated near axilla but otherwise clean dry and intact. Range of motion of the elbow wrist and fingers intact. Pulses intact. Objective Labs Result Diagrams: 10/30/18 06:40 10/30/18 06:40 Labs: Laboratory Results - last 24 hr 10/30/18 10/30/18 10/30/18 06:40 06:40 06:40 WBC 18.9 H RBC 4.03 L Hgb 12.0 L Hct 35.4 L MCV 87.8 MCH 29.6 MCHC 33.8 RDW 13.0 Plt Count 581 H Neut % (Auto) 84.7 H Lymph % (Auto) 10.5 L [place] % (Auto) 4.1 Eos % (Auto) 0.5 L Baso % (Auto) 0.2 Neut # (Auto) 30260 H Lymph # (Auto) 2000 [place] # (Auto) 800 Eos # (Auto) 100 Baso # (Auto) 0 Sodium 129 L Potassium 4.8 Chloride 93 L Carbon Dioxide 29 BUN 14 Creatinine 0.80 Estimated GFR > 60.0 BUN/Creatinine Ratio 17.5 Glucose 99 D Calcium 8.2 L Procalcitonin 0.14 Assessment & Plan Post-op Postoperative Procedures Operation Date: 10/27/18 16:35 Actual Procedures Side Surgeon p Incision and Drainage Wound/Extremity left shoulder Left Anna Ogden MD Operation Date: 10/29/18 16:30 Actual Procedures Side Surgeon p I&D shoulder Left Anna Ogden MD 1. Continue IV antibiotics. Awaiting final blood cultures and recommendations from Infectious Disease. Oxycodone, ibuprofen and Tylenol as needed for pain. Quality VTE Deep Vein Thrombosis/Pulmonary Embolism Present on Admission: No
[2018-10-30] MEDS: OXYCODONE IR 5 MG TABLET PO ×3 (09:03→19:50)
--- NOTE | 2018-10-30 10:55 | OT.IP.EVAL ---
Current Diagnoses Infective myositis, left shoulder (10/27/18) Surgery Performed Operation Date: 10/27/18 16:35 Actual Procedures p Incision and Drainage Wound/Extremity left shoulder(Left) - Anna Ogden MD Operation Date: 10/29/18 16:30 Actual Procedures p I&D shoulder(Left) - Anna Ogden MD Past Medical History (Last Reviewed 10/29/18 @ 22:28 by IAN Jain) Hyperlipidemia (Acute) Occupational Therapy Inpatient Evaluation/Re-Eval M1 PT/OT-IP Prior Functional Status Start: 10/28/18 08:23 Freq: NEEDED Status: Active Protocol: Document 10/30/18 10:55 PJM (Rec: 10/30/18 14:01 PJM NR) Medical Review Prior Functional Status Medical History Reviewed Yes Diet/Fluid Consistency Regular Communication WNL Mobility and Gait Independent, no device, active Activities of Daily Living and IADL's Independent with all self care , IADLS, driving. 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 Prior Functional Level (Other details) Supportive works full time babysitter but can provide assist before and after work PRN. 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 Pt has open surgical wound on anterior of L shoulder which is bandaged. M3 OT- IP Subjective and Pain Start: 10/28/18 14:39 Freq: Status: Active Protocol: Document 10/30/18 10:55 PJM (Rec: 10/30/18 14:01 PJM [id number]) OT- Subjective Occupational Therapy Visit Type Type Initial Evaluation Visit Start Time 10:20 Visit Stop Time 10:55 Total Visit Minutes 35 Notes Pt's here for education this session. Occupational Therapy Visit Comments Patient Comments It really hurts when I move it, but it's not too bad if I stay still. Patient/Caregiver Goals to resume independence in daily activities and return to work OT Pain Assessment Pain When Pain Assessed After Treatment Pain Present Pain Present Pain Reported Location Left Shoulder Intensity 2 Scale Used Numeric (1 - 10) Description Acute Pain Behaviors Facial Grimacing Guarding Wincing Management Techniques Distraction Re-positioning Timing of Activity with Medications M4 OT- IP ADL's Start: 10/28/18 14:39 Freq: Status: Active Protocol: Document 10/30/18 10:55 PJM (Rec: 10/30/18 14:01 [facility] [id number]) OT FRD-Wuyz-Nuiadmg General Evaluation Self-Feeding Ability Independent Areas Needing Assistance Opening Containers Comments OT Self-Feeding Comments Pt independent using dominant R hand after meal trya set up due to unilateral function. OT ADL-Grooming General Evaluation Grooming Ability Independent Areas Needing Assistance Retrieving/Set-up of Grooming Items OT ADL-Oral Care General Eval Oral Care Ability Independent Areas of Assistance Brushing Teeth Comments Oral Care Comments Educated pt to use L hand as assist within and out of sling as shoulder pain permits. OT ADL-Dressing General Eval Upper Body Dressing Ability Minimal Assistance Lower Body Dressing Ability Minimal Assistance Areas Needing Assistance Button-Up Shirt/Blouse Socks Comments OT Dressing Comments Provided education to pt/ re: sequence for upper body dressing/undressing, optimal clothing choices and unilateral technique for donning socks. can assist PRN at home. Provided education re: donning/doffing L sling. OT ADL-Toileting General Evaluation Toileting Ability Independent OT ADL-Bathing Comments OT Bathing Comments Pt not allowed to shower at present, but provided education re: washing/drying under L arm and keeping L armpit dry. M5 OT- IP IADL's Start: 10/28/18 14:39 Freq: Status: Active Protocol: Document 10/30/18 10:55 PJM (Rec: 10/30/18 14:01 [facility] [id number]) OT-Instrumental Activities of Daily Living Deficits IADL Deficits Identified Deficits Home Safety Awareness Awareness of Need for Assistance at Home Good Awareness Ability to Problem Solve Emergency Able to Problem Solve Situations Medication Management Medication Management No Deficits Identified Money Management Money Management No Deficits Identified Meal Preparation Meal Preparation Caregiver Provides Assist Meal Preparation Comments to assist until pt able Housing Relocation Housing Relocation Caregiver Provides Assist Housing Relocation Comments to assist until pt able Driving Driving Caregiver Provides Assist Driving Comments to assist until pt able M6 OT- IP Functional Cognition Start: 10/28/18 14:39 Freq: Status: Active Protocol: Document 10/30/18 10:55 PJM (Rec: 10/30/18 14:01 [facility] [id number]) Cognitive Factors Limiting Selfcare Function Cognitive Ability Level of Alertness Drowsy Patient Orientation Name Age Birthday Month Date Year Day of Week Place Situation Attention Span Ability Capable of Focused Attention Capable of Sustained Attention Ability to Follow Commands Able to Follow One Step Commands Memory Description No Deficits Noted Safety Awareness No Deficits Noted Problem Solving Ability No deficits Noted Cognitive Comments Cognitive Assessment Comments Pt appears mildly drowsy from pain meds. OT- Vision and Hearing OT- Hearing Assessment OT- Hearing Assessment WFL OT- Vision Assessment Visual Acuity WFL Vision Assessment Comments Pt denies any recent changes. M7 OT- IP Mobility and Balance Start: 10/28/18 14:39 Freq: Status: Active Protocol: Document 10/30/18 10:55 PJM (Rec: 10/30/18 14:01 [facility] [id number]) OT-Transfer Assessment Comments Mobility Comments See P.T. notes, pt declining out of bed this session. OT- Gait Assessment Comments Gait Ability Comments Pt states he has been up in halls ambulating with OT- Balance Assessment Comments Other Balance Tests/Deviations/Treatment see P.T. notes : M8 OT- IP Objective Assessments Start: 10/28/18 14:39 Freq: Status: Active Protocol: Document 10/30/18 10:55 PJM (Rec: 10/30/18 14:01 [facility] [id number]) OT Gross Range of Motion Upper Extremity Range of Motion Assessment Left Impaired ROM Impairments L shoulder NT due to recent surgeries and no ROM orders at present. L elbow AAROM restricted to 20-100 degress by pain and edema. Pronation/ supination, wrist flex/ extension and finger flex/ extension appear WNL. Provided education to pt/ re: AAROM exercises to L elbow , forearm, wrist and fingers 10x; 2-3x/day RUE AROM WNL throughout. OT Strength Upper Extremity Strength Assessment Left Impaired Shoulder NT Elbow 3-/5 due to pain Forearm at least 3/5 Wrist at least 3/5 Hand at least 3+/5 Hand Sack Repairer Strength Hand Dominance Right OT- Coordination Assessment Comments Coordination Comments RUE WNL. LUE coordination, functional use impaired by proximal pain, and edema in arm and hand. OT-Muscle Tone Assessment Muscle Tone WNL Yes OT Sensation Assessment Comments Summary Comments Lt touch intact in LUE/hand. RUE WNL Edema Edema Present Edema Comments Pt has mod edema around elbow and min edema in hand and fingers. Provided education re: elevation on pillows and fist pumping 10 every hour while awake. M9 OT- IP Assessment and Plan Start: 10/28/18 14:39 Freq: Status: Active Protocol: Document 10/30/18 10:55 PJM (Rec: 10/30/18 14:01 PJM [id number]) OT Summary Assessment and Plan Potential Rehabilitation Potential Excellent Analytic Complexity at Evaluation Low Summary OT Impairments Pain Range of Motion Strength Coordination Dressing Bathing Assessment Summary Low complexity OT assessment completed on this 57 yr old pt admitted with infection of musculature of L (non dominant) shoulder s/p I&D x2 on 10/27 and 10/29/18. There are no orders for ROM to L shoulder at present. Distal LUE function impaired by proximal pain and edema with sling on when pt out of bed. Impaired LUE function results in decreased performance deficits in dressing and showering. Pt will benefit from OT services for LUE AAROM/AROM exercises as per MD orders, edema control and training in adapted ADL techniques. Anticipate pt will return home with supportive working spouse when medically stable. Goals Dressing Goal Standby Assistance Bathing Goal Minimal Assistance Shower Transfer Goal Standby Assistance Patient/Caregiver Education Goal Demonstrate Post-Op Precautions Caregiver Independent Assisting Patient Days to Meet Goals 3 Frequency of Treatment Frequency Of Treatment Once a Day Treatment Plan OT Treatment Plan ADL Training Functional Mobility Therapeutic Exercises Patient/Family Education Discharge Planning Discharge Recommendations OT Discharge Recommendations Home with Assistance
--- NOTE | 2018-10-30 11:28 | PC.NURSE ---
Addendum entered by Marisol Galaviz R.N. 10/30/18 11:36: Scheduled antibiotics hung at 0905 for 0800 dose. Upon reassessment, antibiotic and not infused, antibiotic restarted at 1045. Original Note: Day Shift- Update given and plan of care discussed with SEGUN Ramesh. Requested stool softeners, diet, pain management this AM. Orders rec'd. Plan to check pt's blood glucose finger sticks AC& HS. Place on ADA diet, D/C S/S insulin. Per Domitila,PAC, Call Dr/PA if blood glucose finger sticks trending up or if above 230. Pt A&OX4, in better spirits this AM, Reports 3-4/10 throbbing to left shoulder. PRN Oxycodone 5mg given at 0905 with good effect. Dressing intact with moderate amount of sero-sang drainage. LUE edematous, from shoulder to fingers, Pt performing left hand exercises. Radial pulses strong and palpable. Denies nausea, tolerated ADA diet. Pt OOB with SBA. Steady gait. Pt's Duyen called this AM and left message with RN Coordinator. Would like an update from Hospitalist.
--- NOTE | 2018-10-30 11:54 | PT.IPTN ---
Current Diagnoses Infective myositis, left shoulder (10/27/18) Surgery Performed Operation Date: 10/27/18 16:35 Actual Procedures p Incision and Drainage Wound/Extremity left shoulder(Left) - Anna Ogden MD Operation Date: 10/29/18 16:30 Actual Procedures p I&D shoulder(Left) - Anna Ogden MD Physical Therapy Treatment Note M2 PT-IP Current Condition Start: 10/28/18 08:23 Freq: NEEDED Status: Active Protocol: Document 10/28/18 11:40 DLM (Rec: 10/28/18 11:53 DLM [id number]) Physical Therapy Current Condition Current Condition Evaluation Date 10/28/18 Treatment Diagnosis left shoulder infection, shoulder pain Onset Date 10/27/18 Precautions Shoulder Precautions Sling Other Precautions no orders for ROM left shoulder at this time, I&D on 10/17/18 with second I&D 10/29/18 M3 PT-IP Subjective Start: 10/28/18 08:23 Freq: NEEDED Status: Active Protocol: Document 10/30/18 11:54 DLM (Rec: 10/30/18 11:54 DLM [id number]) Subjective Physical Therapy Visit Type Type Patient Unavailable Notes pt having and Echo at this time, will return later today for physical therapy
[2018-10-30] MEDS: POLYETHYLENE GLYCOL 3350 17 GM POWD.PACK PO (12:46)
--- NOTE | 2018-10-30 13:55 | PT.IPTN ---
Current Diagnoses Infective myositis, left shoulder (10/27/18) Surgery Performed Operation Date: 10/27/18 16:35 Actual Procedures p Incision and Drainage Wound/Extremity left shoulder(Left) - Anna Ogden MD Operation Date: 10/29/18 16:30 Actual Procedures p I&D shoulder(Left) - Anna Ogden MD Physical Therapy Treatment Note M2 PT-IP Current Condition Start: 10/28/18 08:23 Freq: NEEDED Status: Active Protocol: Document 10/30/18 13:55 DLM (Rec: 10/30/18 14:34 DL [id number]) Physical Therapy Current Condition Current Condition Evaluation Date 10/28/18 Treatment Diagnosis left shoulder infection, shoulder pain Onset Date 10/27/18 Precautions Shoulder Precautions Sling Other Precautions no orders for ROM left shoulder at this time, I&D on 10/17/18 with second I&D M3 PT-IP Subjective Start: 10/28/18 08:23 Freq: NEEDED Status: Active Protocol: Document 10/30/18 13:55 DLM (Rec: 10/30/18 14:34 DL [id number]) Subjective Physical Therapy Visit Type Type Treatment Note Visit Start Time 13:20 Visit Stop Time 13:55 Total Visit Minutes 35 Notes OT will take over left UE ROM Physical Therapy Visit Comments Patient Comments he reports he is getting better, his reports an out-pt PT clinic from [place] has already called to schedule PT Patient Goals return home with his to help Therapy Pain Assessment Pain When Pain Assessed During Mobility Pain Present Pain Present Pain Reported Location Left Shoulder Intensity 4 Scale Used Numeric (1 - 10) Description Aching Pain Behaviors Guarding Pain Management Techniques Elevation Re-positioning Timing of Activity with Medications M4 PT-IP Mobility and Gait Start: 10/28/18 08:23 Freq: NEEDED Status: Active Protocol: Document 10/30/18 13:55 DLM (Rec: 10/30/18 14:34 DL [id number]) PT-Bed Mobility Assessment Supine to Sit Supine to Sit Standby Assistance Minimal Assistance Sit to Supine Sit to Supine Independent Scooting Scooting to Edge of Bed Independent PT-Transfer Assessment Sit to and From Stand Sit to and from Stand Independent Transfers Transfer Destination Bed Transfer Technique Stand Step Pivot Transfer Ability Level of Assist Independent Comments Mobility Comments recommend he get in/out of bed from his right side to avoid rolling over onto left shoulder Gait Assessment Gait Gait Assistance Required: Independent Distance (Feet) 500 Assistive Devices Assistive Device Gait Belt Comments Gait Comments good balance, assisted pt with IV pole, sling in place left UE PT-Balance Assessment Sitting Balance and Reactions Static Sitting Balance Ability Normal Dynamic Sitting Balance Ability Normal Standing Balance and Reactions Static Standing Balance Ability Good Dynamic Standing Balance Ability Good M5 PT-IP Objective Assessments Start: 10/28/18 08:23 Freq: NEEDED Status: Active Protocol: Document 10/30/18 13:55 DLM (Rec: 10/30/18 14:34 DL [id number]) Orientation Orientation/Cognition Level of Alertness Alert Orientation Name Age Birthday Month Date Year Day of Week Place Situation Language Function Ability No Deficits Noted Safety Awareness Understands Safety Issues Memory Description No Deficits Noted M6 PT-IP Treatment Start: 10/28/18 08:23 Freq: NEEDED Status: Active Protocol: Document 10/30/18 13:55 DLM (Rec: 10/30/18 14:34 [facility] [id number]) Physical Therapy Treatment Education Education Provided Safety M7 PT-IP Assessment and Plan Start: 10/28/18 08:23 Freq: NEEDED Status: Active Protocol: Document 10/30/18 13:55 DLM (Rec: 10/30/18 14:34 DL [id number]) PT Summary Assessment and Plan Summary Progress Towards Goals Safe For Discharge Goals Met Frequency of Treatment Frequency Of Treatment Discharge Treatment Plan Other Recommendations and Next Treatment goals met Focus Recommendations To Nursing Amount of Assist Needed Standby Assistance Discharge Recommendations PT Discharge Recommendations Home with Assistance Outpatient PT
[2018-10-30] MEDS: ACETAMINOPHEN 325 MG TABLET 975 MG PO (16:02)
--- NOTE | 2018-10-30 19:11 | P.PN_ITS ---
Subjective Date Patient Seen: 10/30/18 Interval history: Patient is a 58 y/o male hospitalized for Shoulder infection with Group A strep, s/p I &D and repeat washout. He continues to be febrile but his WBC has improved from 25 K to 18K. He is lethargic but arousable, his shoulder is somewhat swollen. He denies sh ortness of breath or diarrhea. Per his he is slowly improving. Exam Vital Signs (past 8 hours): - 10/30/18 12:00 10/30/18 16:14 Temperature 99.4 F 101.3 F H Pulse Rate 98 H 99 H Respiratory Rate 18 20 Blood Pressure 131/78 135/83 Pulse Oximetry 95 92 Oxygen Delivery Method Room Air Oxygen Flow Rate 0 Narrative Exam Narrative: Flushed male ill appearing Lungs: decreased breath sounds bilaterally but clear to auscultation CV: RRR nl Sl S2 Abd: soft/ non tender/ non distended Shoulder not examined Lower extremity no edema Objective Labs Result Diagrams: 10/30/18 06:40 10/30/18 06:40 Labs: Laboratory Results - last 24 hr 10/30/18 10/30/18 10/30/18 06:40 06:40 06:40 WBC 18.9 H RBC 4.03 L Hgb 12.0 L Hct 35.4 L MCV 87.8 MCH 29.6 MCHC 33.8 RDW 13.0 Plt Count 581 H Neut % (Auto) 84.7 H Lymph % (Auto) 10.5 L [place] % (Auto) 4.1 Eos % (Auto) 0.5 L Baso % (Auto) 0.2 Neut # (Auto) 76902 H Lymph # (Auto) 2000 [place] # (Auto) 800 Eos # (Auto) 100 Baso # (Auto) 0 Sodium 129 L Potassium 4.8 Chloride 93 L Carbon Dioxide 29 BUN 14 Creatinine 0.80 Estimated GFR > 60.0 BUN/Creatinine Ratio 17.5 Glucose 99 D Calcium 8.2 L Procalcitonin 0.14 Assessment & Plan (1) Hyperlipidemia: Problem details: continue Statin Current visit: Yes Status: Acute (2) Abscess of arm, left: Problem details: 58 y/o male admitted with shoulder abcess, secondary to Group A STrep S/P I&D , with washout. Overall improving. Still febrile but WBC getting better. Echo Normal LV size and wall thickness; normal wall motion and LV systolic function. EF is 60-65%. Normal chamber sizes. No significant valvular abnormalities. No obvious vegetations. However, if endocarditis is clinically suspected, recommend ALEENA...No concern for SBE Current visit: Yes Status: Acute (3) Cellulitis: Problem details: Antibiotics as above Qualifiers: Laterality: left Site of cellulitis: extremity Site of cellulitis of extremity: upper extremity Site of cellulitis of trunk: Qualified Code(s): L03.114 - Cellulitis of left upper limb Current visit: Yes Status: Acute Assessment & Plan narrative: Continue Antibiotics, tylenol Quality VTE Deep Vein Thrombosis/Pulmonary Embolism Present on Admission: No
[2018-10-30] MEDS: SENNOSIDES 8.6 MG TABLET 17.2 MG PO (19:51)
[2018-10-30] MEDS: SODIUM CHLORIDE 0.9% FLUSH 10 ML IV (19:51)
[2018-10-31] VITALS (7 sets, daily range): BP systolic 114–131; BP diastolic 74–88; PULSE 96–106; RESP 18–19; TEMP 36.7–37.7; O2SAT 95–98
--- NOTE | 2018-10-31 | DI.MRI.S_ITS ---
PROCEDURE: MR SHOULDER LT WO/W CON INDICATIONS: w/ upper arm please call Dr. Ogden w/ results TECHNIQUE: Noncontrast oblique coronal T1 spin echo and T2 fast spin echo with fat saturation, oblique sagittal T1 spin echo and T2 fast spin echo with fat saturation, axial T1 spin echo and T2 fast spin echo with fat saturation through the shoulder. Post-contrast oblique coronal, oblique sagittal, and axial T1 spin echo with fat saturation through the shoulder. COMPARISON: [facility], MR, MR HUMERUS LT WO/W CON, 10/27/2018, 16:49. FINDINGS: Image quality: Excellent. Rotator cuff: There is distal supraspinatus and infraspinatus tendinosis and suggestion of low grade bursal and articular surface partial thickness tear near its insertion the humeral head. The distal subscapularis tendinosis is also seen. No full-thickness rotator cuff tendon rupture. Sagittal images demonsterate very mild supraspinatus muscle atrophy. Bones and bursae: [id number] acromioclavicular joint and glenohumeral joint osteophytic changes are seen. Nonspecific marrow edema over lateral portion of humeral head and proximal humeral shaft is seen with no gross bone erosion or cortical destruction to suggest osteomyelitis. Moderate amount of subacromial subdeltoid bursal fluid is seen. Small amount of glenohumeral joint effusion is noted. Capsule and soft tissues: Extensive edema throughout the deltoid muscle as well as rest of shoulder muscles are noted, most consistent with myositis given patient's history. Previously noted abscess collection within the anterior aspect of inferior deltoid is no longer seen and is consistent with postsurgical incision and drainage with packing material. There is proximal long head biceps tendinosis. No evidence of biceps tendon rupture. No gross focal labral tear is seen. Glenohumeral ligaments are grossly intact. The rotator interval appears normal, without fibrosis. The coracohumeral ligament is normal in thickness. A few prominent left axillary lymph nodes are seen. IMPRESSION: #1. Interval I&D in patient's known area of intramuscular abscess collection involving anterior inferior deltoid with packing material seen at the site of incision. No new loculated drainable abscess collection is identified. #2. Complex appearing fluid within the subacromial subdeltoid bursa which may indicate bursitis. Small amount of glenohumeral joint effusion with no gross intra-articular loose body. #3. Nonspecific mild marrow edema involving the lateral periphery of proximal humerus, which may be due to recent surgery. No gross MR evidence of osteomyelitis. #4. Generalized myositis throughout left shoulder muscles. No full-thickness rotator cuff tendon rupture. Rotator cuff tendinosis and proximal long head biceps tendinosis is seen. Dictated by: Riky Newton M.D. on 11/01/2018 at 12:15 Approved by: Riky Newton M.D. on 11/01/2018 at 12:29
[2018-10-31] MEDS: PENICILLIN G POTASSIUM 3,000,000 UNIT/50 ML FROZ.PIGGY 100 UNIT IV ×7 (00:04→23:41)
[2018-10-31] MEDS: OXYCODONE IR 5 MG TABLET PO ×3 (00:16→09:39)
--- NOTE | 2018-10-31 05:59 | P.PN_ITS ---
Subjective Date Patient Seen: 10/31/18 Interval history: Anuel Melendrez is a 58-year-old male patient with history of hyperlipidemia who was admitted to the hospital on 10/27/2018 with pain and redness left upper arm and shoulder. Consulted for program assistant with medical management related to streptococcal infection. The patient is resting in bed comfortably. He continues to have pain related to movement with his left shoulder. His pain is well managed with narcotics. His white count continues to trend down slowly. He headache, shortness of breath, chest pain, abdominal pain, nausea, vomiting, fever, chills, dysuria, diarrhea or constipation. He is voiding and eliminating without difficulty. He is up ambulating with assistance. Exam Vital Signs (past 8 hours): - 10/31/18 00:08 10/31/18 00:16 10/31/18 01:00 Temperature 99.8 F H 99.4 F 98.8 F Pulse Rate 97 H Respiratory Rate 18 Blood Pressure 131/88 Pulse Oximetry 95 10/31/18 04:00 Temperature 98.1 F Pulse Rate 105 H Respiratory Rate 18 Blood Pressure 131/79 Pulse Oximetry 96 Oxygen Delivery Method Room Air Oxygen Flow Rate 0 Narrative Exam Narrative: General: Middle-aged male sitting in bed and in no acute distress, well- developed, well-nourished, appropriately interactive. HEENT: Normocephalic, atraumatic. External ears without defect. Pupils equal, round, and reactive to light. Anicteric sclerae, moist conjunctivae, and no lid lag. Neck: Supple with full range of motion. No lymphadenopathy or thyromegaly. Cardiovascular: Regular rate and rhythm without murmurs, rubs, or gallops appreciated Pulmonary: Clear to auscultation bilaterally without crackles, wheezes, or rhonchi. Normal respiratory effort with no use of accessory muscles. Abdomen: Soft, bowel sounds present, nontender, nondistended. No hepatosplenomegaly or masses appreciated. Extremities: No clubbing, cyanosis, or edema. Left shoulder with bandage in place C/D/I without surrounding erythema. Skin: Normal temperature, turgor, and texture; no rash, ulcers, or subcutaneous nodules appreciated. Neurological: Cranial nerves grossly intact. Psychiatric: Normal mood and affect. Alert and oriented to person, place, and time. Objective Labs Result Diagrams: 10/31/18 06:00 10/31/18 06:00 Labs: Laboratory Results - last 24 hr 10/30/18 10/30/18 10/30/18 06:40 06:40 06:40 WBC 18.9 H RBC 4.03 L Hgb 12.0 L Hct 35.4 L MCV 87.8 MCH 29.6 MCHC 33.8 RDW 13.0 Plt Count 581 H Neut % (Auto) 84.7 H Lymph % (Auto) 10.5 L [place] % (Auto) 4.1 Eos % (Auto) 0.5 L Baso % (Auto) 0.2 Neut # (Auto) 18173 H Lymph # (Auto) 2000 [place] # (Auto) 800 Eos # (Auto) 100 Baso # (Auto) 0 Sodium 129 L Potassium 4.8 Chloride 93 L Carbon Dioxide 29 BUN 14 Creatinine 0.80 Estimated GFR > 60.0 BUN/Creatinine Ratio 17.5 Glucose 99 D Calcium 8.2 L Procalcitonin 0.14 Assessment & Plan Assessment & Plan narrative: Anuel Melendrez is a 58-year-old male patient with history of hyperlipidemia who was admitted to the hospital on 10/27/2018 with pain and redness left upper arm and shoulder. Consulted for program assistant with medical management related to streptococcal infection. 1. Acute left shoulder infection with strep pyogenes, present on admission. Active. -No history of trauma or injury. -Status post incision and drainage on 10/27/2018 and debridement and irrigation 10/29/[address] Ogden. -Continue postoperative pain and management per ortho. -Initial WBC elevated at 25.5, trending down. Procalcitonin negative. Blood cultures have no growth to date. -Patient is receiving penicillin G, 3 million units IV every 4 hours for 5-7 days total 11/03 and received Ancef perioperatively. -Echocardiogram demonstrated normal sinus rhythm, normal LV size and wall thickness; normal wall motion and LV systolic function. EF is 60-65%. Normal chamber sizes. No significant valvular abnormalities. No obvious vegetations. No concern for SBE. 2. Acute hyponatremia, present on admission. Active. -Initial sodium 136. Trended down to 129. Now trending up with IVF. -Continue IV fluid with normal saline 100 mL/hr for next 24 hours. 3. Hyperglycemia, present on admission, active -Initial blood glucose on admission 240 mg/ dL. -Patient denies personal history diabetes but had briefly been on prednisone therapy, has current infection, as well as, family history of diabetes. -Hemoglobin A1c is 6.0% consistent with prediabetes. May need to be placed on metformin outpatient. Recommended lifestyle modification including: diet and exercise. -Continue blood glucose checks ACHS and cover with low dose correctional scale insulin. 4. Thrombocytosis, present on admission. Active. -Secondary to acute infection. -Consider restarting aspirin 81 mg daily pending ortho approval. Started DVT prophylaxis with enoxaparin 40 mg subQ daily. -Continue IV fluids as above. 5. Hyperlipidemia, chronic, presumed stable -Patient reports his cholesterol is well controlled on rosuvastatin 10 mg daily at bedtime and continued. Thank you for consulting our services. We will continue to follow along with you. Quality VTE Deep Vein Thrombosis/Pulmonary Embolism Present on Admission: No
[2018-10-31 06:16] LABS: Add Manual Diff / Slide Review NO; Basophils Absolute Auto 200 /uL (0-100); Eosinophils Absolute Auto 100 /uL (0-450); Eosinophils Percent Auto 0.8 % (2-4); Hematocrit 34.5 % (41-53); Hemoglobin 11.9 g/dL (13.5-17.5); Lymphocytes Absolute Auto 1800 /uL (1100-4500); Lymphocytes Percent Auto 10.1 % (25-40); Mean Corpuscular HGB Conc 34.5 % (30-36); Mean Corpuscular Hemoglobin 30.2 PG (26-34); Mean Corpuscular Volume 87.7 fL (80-100); Monocytes Absolute Auto 1100 /uL (0-900); Monocytes Percent Auto 6.1 % (3-14); Neutrophils Absolute Auto 14900 /uL (1500-7000); Platelet Count 613 X10^3/uL (150-400); Red Blood Cell Count 3.93 X10^6/uL (4.5-5.9); Red Cell Distribution Width 12.8 % (11.6-14.8); White Blood Cell Count 18.2 X10^3/uL (4.5-11.0)
[2018-10-31 06:19] LABS: BUN Creatinine Ratio 16.7 (6-22); Blood Urea Nitrogen 15 mg/dL (9-20); Calcium 8.4 mg/dL (8.4-10.2); Carbon Dioxide 26 mmol/L (22-32); Chloride 94 mmol/L (98-107); Estimated Glomerular Filt Rate > 60.0 mL/min (>60); Glucose 115 mg/dL (70-100); HEMOLYSIS < 15 (0-50); Potassium 4.5 mmol/L (3.4-5.1); Sodium 131 mmol/L (137-145)
[2018-10-31] MEDS: SENNOSIDES 8.6 MG TABLET 17.2 MG PO ×2 (08:43→20:08)
[2018-10-31] MEDS: SODIUM CHLORIDE 0.9% FLUSH 10 ML IV (08:48)
--- NOTE | 2018-10-31 11:37 | PC.NURSE ---
Patient, his and his sister in law expressed concern regarding patients status regarding pain management, labs, and request for potential hospital transfer. Patient reports current order for oxycodone is not effective enough for pain management, as pain is increasing with increased ROM. Patient refused tylenol as ordered reporting it doesn't help and it makes me too sweaty. Mireille DOBSON notified of patient's concerns.
[2018-10-31] MEDS: ENOXAPARIN 40 MG/0.4 ML SYRINGE SUBCUT (12:20)
--- NOTE | 2018-10-31 12:30 | P.PN_ITS ---
Subjective Date Patient Seen: 10/31/18 Time Patient Seen: 12:28 Interval history: Patient is a 58 year old male who is POD#2 s/p second I&D of left shoulder abscess with Dr. Ogden. He has been progressing his range of motion today with physical therapy which has caused an increase in his pain levels that makes it difficult for him to continue activities. His current regimen of Oxycodone 5mg is only providing minimal relief. He has been up and out of bed for to the chair and bathroom. He admits to some difficulty sleeping for the last few days. He denies any chills, night sweats, chest pain, SOB. Exam Vital Signs (past 8 hours): - 10/31/18 08:00 Temperature 99.5 F Pulse Rate 96 H Respiratory Rate 18 Blood Pressure 127/78 Pulse Oximetry 96 Oxygen Delivery Method Room Air Oxygen Flow Rate 0 Narrative Exam Narrative: Pleasant 58 year old male resting comfortably in bed in no apparent distress. Extrem Other: Dressing in place over left shoulder wound is intact with minimal staining near the axilla. Some swelling of the shoulder and the upper arm to the shoulder. Intact motor in the left upper extremity. Sensation intact throughout left UE. 2+ radial pulse with good capillary refill. Objective Labs Result Diagrams: 10/31/18 06:00 10/31/18 06:00 Labs: Laboratory Results - last 24 hr 10/31/18 10/31/18 06:00 06:00 WBC 18.2 H RBC 3.93 L Hgb 11.9 L Hct 34.5 L MCV 87.7 MCH 30.2 MCHC 34.5 RDW 12.8 Plt Count 613 H Neut % (Auto) 82.0 H Lymph % (Auto) 10.1 L [place] % (Auto) 6.1 Eos % (Auto) 0.8 L Baso % (Auto) 1.0 Neut # (Auto) 86856 H Lymph # (Auto) 1800 [place] # (Auto) 1100 H Eos # (Auto) 100 Baso # (Auto) 200 H Sodium 131 L Potassium 4.5 Chloride 94 L Carbon Dioxide 26 BUN 15 Creatinine 0.90 Estimated GFR > 60.0 BUN/Creatinine Ratio 16.7 Glucose 115 H Calcium 8.4 Assessment & Plan Post-op Postoperative Procedures Operation Date: 10/27/18 16:35 Actual Procedures Side Surgeon p Incision and Drainage Wound/Extremity left shoulder Left Anna A Ogden, MD Operation Date: 10/29/18 16:30 Actual Procedures Side Surgeon p I&D shoulder Left Anna Ogden MD Postoperative day: 2 Postoperative plan narrative: Patient is continuing to show improvement. White count decreased from 18.9 to 18.2. He remained afebrile overnight and today. Current plan is to continue penicillin G, 3 million units IV every 4 hours with possible return to the OR later this week for delayed closure if he continues to show improvement. Oxycodone 10mg was added for severe pain and Ambien 5mg for sleep. Continue to work with PT/OT to mobilize the shoulder. MR of the left shoulder and upper arm ordered for later today per Dr. Ogden. Plan was discussed with patient and family who had expressed some concerns about his care and were considering transfer to outside hospital and all questions were answered. Quality VTE Deep Vein Thrombosis/Pulmonary Embolism Present on Admission: No
[2018-10-31] MEDS: OXYCODONE IR 5 MG TABLET 10 MG PO ×4 (13:10→23:50)
--- NOTE | 2018-10-31 15:49 | OT.IP.TRT ---
Current Diagnoses Hyperlipidemia, unspecified (10/27/18) Cutaneous abscess of left upper limb (10/27/18) Cellulitis of left upper limb (10/27/18) Infective myositis, left shoulder (10/27/18) Surgery Performed Operation Date: 10/27/18 16:35 Actual Procedures p Incision and Drainage Wound/Extremity left shoulder(Left) - Anna Ogden MD Operation Date: 10/29/18 16:30 Actual Procedures p I&D shoulder(Left) - Anna Ogden MD Occupational Therapy Treatment Note M2 OT-IP Current Condition Start: 10/28/18 14:39 Freq: Status: Active Protocol: Document 10/30/18 10:55 PJM (Rec: 10/30/18 14:01 PJM [id number]) Occupational Therapy Current Condition Current Condition Evaluation Date 10/30/18 Treatment Diagnosis decreased LUE functional use and indep in ADLS s/p I&D L shoulder x2 Diagnosis Onset Date 10/27/18 Post Operative Precautions Shoulder Precautions Sling Other Precautions No ROM orders for L shoulder at this time. Pt has open surgical wound on anterior of L shoulder which is bandaged. M3 OT- IP Subjective and Pain Start: 10/28/18 14:39 Freq: Status: Active Protocol: Document 10/31/18 15:47 CGR (Rec: 10/31/18 15:49 CGR [id number]) OT- Subjective Occupational Therapy Visit Type Type Patient Unavailable Notes Pt sleeping in bed. states pt very lethargic after double dose of pain medication. Pt's educated on UE therex and states that he performed shld exercises x 2 today. will perform UE therex again with pt tomorrow. No services rendered to pt on this date. Will continue to follow.
[2018-10-31] MEDS: ZOLPIDEM 5 MG TABLET PO (23:51)
[2018-11-01] VITALS (16 sets, daily range): BP systolic 110–146; BP diastolic 70–96; PULSE 86–97; RESP 12–20; TEMP 36.6–37.2; O2SAT 92–98; BMI 27.7
[2018-11-01] MEDS: SODIUM CHLORIDE 0.9% 250 ML 100 ML IV ×2 (04:03→16:29)
[2018-11-01] MEDS: PENICILLIN G POTASSIUM 3,000,000 UNIT/50 ML FROZ.PIGGY 100 UNIT IV ×4 (04:03→16:28)
[2018-11-01] MEDS: OXYCODONE IR 5 MG TABLET 10 MG PO ×2 (04:12→08:52)
[2018-11-01 06:09] LABS: Add Manual Diff / Slide Review NO; Basophils Absolute Auto 100 /uL (0-100); Basophils Percent Auto 0.5 % (0-2); Eosinophils Absolute Auto 200 /uL (0-450); Eosinophils Percent Auto 1.1 % (2-4); Hematocrit 33.1 % (41-53); Hemoglobin 10.9 g/dL (13.5-17.5); Lymphocytes Absolute Auto 1900 /uL (1100-4500); Lymphocytes Percent Auto 12.1 % (25-40); Mean Corpuscular HGB Conc 33.1 % (30-36); Mean Corpuscular Hemoglobin 29.4 PG (26-34); Monocytes Absolute Auto 1300 /uL (0-900); Monocytes Percent Auto 8.3 % (3-14); Neutrophils Absolute Auto 12000 /uL (1500-7000); Platelet Count 630 X10^3/uL (150-400); Red Blood Cell Count 3.71 X10^6/uL (4.5-5.9); White Blood Cell Count 15.4 X10^3/uL (4.5-11.0)
[2018-11-01 06:15] LABS: Blood Urea Nitrogen 18 mg/dL (9-20); Calcium 8.5 mg/dL (8.4-10.2); Carbon Dioxide 28 mmol/L (22-32); Chloride 93 mmol/L (98-107); Estimated Glomerular Filt Rate > 60.0 mL/min (>60); Glucose 111 mg/dL (70-100); HEMOLYSIS < 15 (0-50); Potassium 4.1 mmol/L (3.4-5.1); Sodium 129 mmol/L (137-145)
--- NOTE | 2018-11-01 06:45 | PC.NURSE ---
Dr. Ogden called and gave order for pt. to have a clear liquid breakfast then NPO afterwards for plan to take pt. back to OR to remove left shoulder packing.
--- NOTE | 2018-11-01 07:07 | PM.PN.1 ---
Subjective Date Patient Seen: 11/01/18 Interval history: Anuel Melendrez is a 58-year-old male patient with history of hyperlipidemia who was admitted to the hospital on 10/27/2018 with pain and redness left upper arm and shoulder. Consulted for rehab care assistant with medical management related to streptococcal infection. The patient is resting in bed comfortably. He continues to have pain related to movement with his left shoulder. His pain is well managed with narcotics. His white count continues to trend down. He denies headache, shortness of breath, chest pain, abdominal pain, nausea, vomiting, fever, chills, dysuria, diarrhea or constipation. He is voiding and eliminating without difficulty. He is up ambulating without assistance. Exam Vital Signs (past 8 hours): - 11/01/18 00:02 11/01/18 04:00 Temperature 98.2 F 98.2 F Pulse Rate 97 H 87 Respiratory Rate 18 16 Blood Pressure 137/81 122/76 Pulse Oximetry 95 94 Oxygen Delivery Method Room Air Oxygen Flow Rate 0 Narrative Exam Narrative: General: Middle-aged male sitting in bed and in no acute distress, well-developed, well-nourished, appropriately interactive. HEENT: Normocephalic, atraumatic. External ears without defect. Pupils equal, round, and reactive to light. Anicteric sclerae, moist conjunctivae, and no lid lag. Neck: Supple with full range of motion. No lymphadenopathy or thyromegaly. Cardiovascular: Regular rate and rhythm without murmurs, rubs, or gallops appreciated Pulmonary: Clear to auscultation bilaterally without crackles, wheezes, or rhonchi. Normal respiratory effort with no use of accessory muscles. Abdomen: Soft, bowel sounds present, nontender, nondistended. No hepatosplenomegaly or masses appreciated. Extremities: No clubbing, cyanosis, or edema. Left shoulder with bandage in place C/D/I without surrounding erythema. Skin: Normal temperature, turgor, and texture; no rash, ulcers, or subcutaneous nodules appreciated. Neurological: Cranial nerves grossly intact. Psychiatric: Normal mood and affect. Alert and oriented to person, place, and time. Objective Labs Result Diagrams: 11/01/18 05:52 11/01/18 05:52 Labs: Laboratory Results - last 24 hr 11/01/18 11/01/18 05:52 05:52 WBC 15.4 H RBC 3.71 L Hgb 10.9 L Hct 33.1 L MCV 89.0 MCH 29.4 MCHC 33.1 RDW 13.0 Plt Count 630 H Neut % (Auto) 78.0 H Lymph % (Auto) 12.1 L [place] % (Auto) 8.3 Eos % (Auto) 1.1 L Baso % (Auto) 0.5 Neut # (Auto) 73225 H Lymph # (Auto) 1900 [place] # (Auto) 1300 H Eos # (Auto) 200 Baso # (Auto) 100 Sodium 129 L Potassium 4.1 Chloride 93 L Carbon Dioxide 28 BUN 18 Creatinine 1.00 Estimated GFR > 60.0 BUN/Creatinine Ratio 18.0 Glucose 111 H Calcium 8.5 Assessment & Plan Assessment & Plan narrative: Anuel Melendrez is a 58-year-old male patient with history of hyperlipidemia who was admitted to the hospital on 10/27/2018 with pain and redness left upper arm and shoulder. Consulted for rehab care assistant with medical management related to streptococcal infection. 1. Acute left shoulder soft tissue infection with strep pyogenes, present on admission. Active. -No history of trauma or injury. -Status post incision and drainage on 10/27/2018 and debridement and irrigation 10/29/[address] Ogden. -Continue postoperative pain and management per ortho. -Initial WBC elevated at 25.5, trending down. Procalcitonin negative. Blood cultures have no growth to date. -Echocardiogram demonstrated normal sinus rhythm, normal LV size and wall thickness; normal wall motion and LV systolic function. EF is 60-65%. Normal chamber sizes. No significant valvular abnormalities. No obvious vegetations. No concern for SBE. -Discussed patient with infectious disease, Dr. Arteaga, who recommends switching patient to clindamycin 900 mg every 8 hours until time of discharge (will stop exotoxin release) and place on cefuroxime or Augmentin twice daily to complete 14 days total. 2. Acute hyponatremia, present on admission. Active. -Secondary to hypovolemia from recent surgery. -Initial sodium 136. Trended down to 129 and stable. Received NS and has been stopped. 3. Hyperglycemia of prediabetes, present on admission, active -Initial blood glucose on admission 240 mg/ dL. -Patient denies personal history diabetes but had briefly been on prednisone therapy, has current infection, as well as, family history of diabetes. -Hemoglobin A1c is 6.0% consistent with prediabetes. May need to be placed on metformin outpatient. Recommended lifestyle modification including: diet and exercise. -Continue blood glucose checks ACHS and cover with low dose correctional scale insulin. -Continue carbohydrate consistent diet. 4. Thrombocytosis, present on admission. Active. -Secondary to acute infection. -Restarted aspirin 81 mg daily and continue DVT prophylaxis with enoxaparin 40 mg subQ daily. 5. Hyperlipidemia, chronic, presumed stable -Patient reports his cholesterol is well controlled on rosuvastatin 10 mg daily at bedtime and continued. Thank you for consulting our services. We will continue to follow along with you. Quality VTE Deep Vein Thrombosis/Pulmonary Embolism Present on Admission: No
[2018-11-01] MEDS: SENNOSIDES 8.6 MG TABLET 17.2 MG PO ×2 (08:04→20:22)
[2018-11-01] MEDS: ASPIRIN EC 81 MG TABLET PO (08:04)
[2018-11-01] MEDS: SODIUM CHLORIDE 0.9% FLUSH 10 ML IV ×3 (08:04→20:22)
[2018-11-01] MEDS: ENOXAPARIN 40 MG/0.4 ML SYRINGE SUBCUT (08:04)
--- NOTE | 2018-11-01 11:03 | PM.PN.1 ---
Exam Vital Signs (past 8 hours): - 11/01/18 04:00 11/01/18 07:40 Temperature 98.2 F 97.8 F Pulse Rate 87 93 H Respiratory Rate 16 18 Blood Pressure 122/76 127/84 Pulse Oximetry 94 97 Oxygen Delivery Method Room Air Oxygen Flow Rate 0 Objective Labs Result Diagrams: 11/01/18 05:52 11/01/18 05:52 Labs: Laboratory Results - last 24 hr 11/01/18 11/01/18 05:52 05:52 WBC 15.4 H RBC 3.71 L Hgb 10.9 L Hct 33.1 L MCV 89.0 MCH 29.4 MCHC 33.1 RDW 13.0 Plt Count 630 H Neut % (Auto) 78.0 H Lymph % (Auto) 12.1 L [place] % (Auto) 8.3 Eos % (Auto) 1.1 L Baso % (Auto) 0.5 Neut # (Auto) 69136 H Lymph # (Auto) 1900 [place] # (Auto) 1300 H Eos # (Auto) 200 Baso # (Auto) 100 Sodium 129 L Potassium 4.1 Chloride 93 L Carbon Dioxide 28 BUN 18 Creatinine 1.00 Estimated GFR > 60.0 BUN/Creatinine Ratio 18.0 Glucose 111 H Calcium 8.5 Assessment & Plan Assessment & Plan narrative: Patient is admitted after surgery. Patient has been stable and progressing with physical therapy. Patient is neurovascularly intact on exam. Patient has no signs or symptoms of DVT. Patient's dressing is clean dry and intact. Patient's WBC is 15,000, down from 61480 yesterday and afebrile. Will return to OR today for I&D and closure with Dr. Ogden at noon today. Quality VTE Deep Vein Thrombosis/Pulmonary Embolism Present on Admission: No
--- NOTE | 2018-11-01 12:29 | PM.PREOP ---
Pre-operative Note Interval Note History & Physical reviewed/Exam performed by Physician: Yes Changes to H&P: No
--- NOTE | 2018-11-01 12:46 | P.OP_ITS ---
Operative Date/Time/Diagnoses Date of procedure: 11/01/18 Time of procedure: 12:58 Pre-op diagnosis: Left shoulder infection Post-op diagnosis: same Procedure & Clinicians Procedure: Excisional Left shoulder I and D, partial delayed primary closure of 8 cm wound Same procedure as scheduled: Yes Indications: Severe left shoulder musculoskeletal infection, status post previous irrigation and debridement x2, clinically improving Surgeon: Anna Ogden Click Yes if Unassisted: Yes Anesthesia Type: General Operative Notes Findings: No necrotic tissue, no specific loculated pus, 1 cc slightly blood tinged synovial fluid Closure Type: non-primary Specimen(s): other (Repeat cultures) Estimated Blood Loss (mL): 100 Blood products transfused: none Procedure in detail: Patient was brought to the operating room. He underwent the induction of general anesthesia. he is on IV penicillin and that was continued. His left shoulder and elbow were carefully manipulated. Full range of motion was achieved. The packing was carefully removed. He then was placed in a beach chair position and prepped and draped in a standard sterile fashion. the wound was meticulously inspected. There was no additional purulence pockets and had I specifically checked for any residual necrotic tissue or loculated areas. A small amount of necrotic fat was debrided. The wound was meticulously irrigated with pulse lavage. The entire subdeltoid bursa and up over the humeral head into the subacromial space was carefully cleaned and aspirated. there was no evidence of tracking distally along the humerus. His biceps and brachial muscles appeared benign. A deep culture was taken from the wound. once the entire subdeltoid bursa had been meticulously irrigated and cleaned then from a posterior approach the patient was positioned slightly more laterally and the glenohumeral joint was aspirated using an 18 gauge needle. small amount of synovial fluid which was blood tinged was removed. it was not purulence or cloudy. a silastic [place] drain was placed deep in the wound. the wound was closed loosely with interrupted 3-0 nylon. The wound was dressed sterilely. The [place] drain was sewn in. It can be removed by releasing the stitch that goes through the [place] and leaving the remainder of the stitch in the wound. Plan continue IV antibiotics. Check white blood cell count tomorrow. Complications: none Condition: stable Disposition: Acute Care Plan for aftercare: Continue IV antibiotics at least until tomorrow. Possible discharge to home tomorrow or Friday when there is improvement in his white count and depending upon culture results. The pin was dripped [place] drain was sewn in. For going to continue IV antibiotics and check his white blood cell count tomorrow.
--- NOTE | 2018-11-01 12:49 | PC.NURSE ---
1250 Patient picked up for procedure, sent with antibiotics as ordered, consent signed. at patient's bedside.
[2018-11-01] MEDS: LACTATED RINGERS 1,000 ML 42 ML IV (13:00)
[2018-11-01] MEDS: SODIUM CHLORIDE IRRIG SOLUTION 3,000 ML, GENTAMICIN 240 MG IRR (13:48)
[2018-11-01] MEDS: BUPIVACAINE 0.5% W/ EPI (PF) VIAL 30 ML INJ (14:00)
[2018-11-01] MEDS: BUPIVACAINE LIPOSOME 266 MG/20 ML VIAL INJ (14:00)
[2018-11-01] MEDS: CLINDAMYCIN 900 MG/50 ML PIGGYBACK 50 MG IV (17:23)
[2018-11-01] MEDS: LACTOBACILLUS ACIDOPHILUS TABLET 1 EACH PO (17:24)
--- NOTE | 2018-11-01 19:47 | PC.NURSE ---
alix shift- assumed care of pt from outgoing shift. PT awake and alert. PT uses call badillo. at bedside, helps with pt care. pt dressing draining. reinforced. did speak with MD GOETZ to change dressings on top of sigrid drain. Pt updated on plan of care. belongings and call light within reach. Pt walked in hallway with . and IV pole. able to manipulate. drips of blood started coming out of dressing. so that was changed. Pt denies need for PRN pain pills. Pt cooperative with call badillo.
[2018-11-01] MEDS: OXYCODONE IR 5 MG TABLET PO (20:23)
[2018-11-02 00:04] VITALS: BP 117/70; PULSE 95; RESP 16; TEMP 37.3; O2SAT 96
[2018-11-02] MEDS: CLINDAMYCIN 900 MG/50 ML PIGGYBACK 50 MG IV ×3 (00:52→17:15)
[2018-11-02] MEDS: SODIUM CHLORIDE 0.9% FLUSH 10 ML IV ×4 (00:52→20:37)
[2018-11-02] MEDS: OXYCODONE IR 5 MG TABLET PO ×3 (00:53→10:31)
--- NOTE | 2018-11-02 01:16 | PC.NURSE ---
Addendum entered by Krystal Hamilton R.N. 11/02/18 05:11: Patient went for walk in [place] and working on ROM exercises earlier and now states pain is 4/10; medicated with Oxycodone and ice applied. Arm repositioned on pillows. CMS remains intact. Original Note: Patient is alert and oriented. Breath sounds CTA with RA sat of 96%. HRR. Denies nausea. BT present and is passing flatus but has not had a BM since 10/27; states he hasn't eaten much over past week. Is receiving Senna BID. Denies dysuria, frequency or urgency; using urinal at bedside. Able to move self in bed. Has been walking halls independently per evening RN. Dressing to left axilla/upper arm is intact with increased shadow drainage from evenings; reoutlined at shift change and no increase since that time. Edema to upper arm noted. States pain is currently 4/10 and increases with any movement; medicated with Oxycodone and ice applied. CMS is intact. SCD's applied at shift change. Fall risk score is moderate.
[2018-11-02 04:11] VITALS: BP 125/72; PULSE 88; RESP 16; TEMP 36.4; O2SAT 96
[2018-11-02 07:00] VITALS: BP 129/78; PULSE 87; RESP 16; TEMP 36.3; O2SAT 97
[2018-11-02] MEDS: ASPIRIN EC 81 MG TABLET PO (08:33)
[2018-11-02] MEDS: SENNOSIDES 8.6 MG TABLET 17.2 MG PO (08:33)
[2018-11-02] MEDS: LACTOBACILLUS ACIDOPHILUS TABLET 1 EACH PO ×3 (08:33→17:15)
[2018-11-02 11:17] VITALS: BP 122/80; PULSE 82; RESP 16; TEMP 36.4; O2SAT 92
[2018-11-02 12:06] LABS: Add Manual Diff / Slide Review NO; Basophils Absolute Auto 0 /uL (0-100); Basophils Percent Auto 0.4 % (0-2); Eosinophils Absolute Auto 100 /uL (0-450); Hematocrit 31.9 % (41-53); Hemoglobin 10.8 g/dL (13.5-17.5); Lymphocytes Absolute Auto 1600 /uL (1100-4500); Lymphocytes Percent Auto 14.3 % (25-40); Mean Corpuscular HGB Conc 33.8 % (30-36); Mean Corpuscular Hemoglobin 29.9 PG (26-34); Mean Corpuscular Volume 88.5 fL (80-100); Monocytes Absolute Auto 1000 /uL (0-900); Monocytes Percent Auto 8.8 % (3-14); Neutrophils Absolute Auto 8500 /uL (1500-7000); Neutrophils Percent Auto 75.5 % (50-75); Platelet Count 700 X10^3/uL (150-400); Red Blood Cell Count 3.61 X10^6/uL (4.5-5.9); Red Cell Distribution Width 12.9 % (11.6-14.8); White Blood Cell Count 11.3 X10^3/uL (4.5-11.0)
--- NOTE | 2018-11-02 13:28 | OT.IP.TRT ---
Current Diagnoses Hyperlipidemia, unspecified (10/27/18) Cutaneous abscess of left upper limb (10/27/18) Cellulitis of left upper limb (10/27/18) Infective myositis, left shoulder (10/27/18) Surgery Performed Operation Date: 10/27/18 16:35 Actual Procedures p Incision and Drainage Wound/Extremity left shoulder(Left) - Anna Ogden MD Operation Date: 10/29/18 16:30 Actual Procedures p I&D shoulder(Left) - Anna Ogden MD Operation Date: 11/01/18 13:05 Actual Procedures p Incision and Drainage wound left shoulder with cultures(Left) - Anna Ogden MD Occupational Therapy Treatment Note M2 OT-IP Current Condition Start: 10/28/18 14:39 Freq: Status: Active Protocol: Document 11/02/18 13:16 CGR (Rec: 11/02/18 13:28 CGR [email or web address]) Occupational Therapy Current Condition Current Condition Treatment Diagnosis decreased LUE functional use and indep in ADLS s/p I&D L shoulder x3 Diagnosis Onset Date 10/27/18 Post Operative Precautions Other Precautions Orders recieved verbally from Mireille DOBSON for full ROM to the LUE AROM ok. M3 OT- IP Subjective and Pain Start: 10/28/18 14:39 Freq: Status: Active Protocol: Document 11/02/18 13:16 CGR (Rec: 11/02/18 13:28 CGR [email or web address]) OT- Subjective Occupational Therapy Visit Type Type Treatment Note Visit Start Time 10:40 Visit Stop Time 11:04 Total Visit Minutes 24 Notes Pt agreeable to OT services. States he has been doing some exercises already this AM. Occupational Therapy Visit Comments Patient/Caregiver Goals To touch thumb to nose. OT Pain Assessment Pain When Pain Assessed After Treatment Pain Present Pain Present Pain Reported Location Left Shoulder Intensity 4 Scale Used Numeric (1 - 10) Description Acute Pain Behaviors Facial Grimacing Guarding Wincing Management Techniques Distraction Re-positioning Timing of Activity with Medications M4 OT- IP ADL's Start: 10/28/18 14:39 Freq: Status: Active Protocol: Document 10/30/18 10:55 PJM (Rec: 10/30/18 14:01 PJM [id number]) OT LCB-Fiod-Cxusujp General Evaluation Self-Feeding Ability Independent Areas Needing Assistance Opening Containers Comments OT Self-Feeding Comments Pt independent using dominant R hand after meal trya set up due to unilateral function. OT ADL-Grooming General Evaluation Grooming Ability Independent Areas Needing Assistance Retrieving/Set-up of Grooming Items OT ADL-Oral Care General Eval Oral Care Ability Independent Areas of Assistance Brushing Teeth Comments Oral Care Comments Educated pt to use L hand as assist within and out of sling as shoulder pain permits. OT ADL-Dressing General Eval Upper Body Dressing Ability Minimal Assistance Lower Body Dressing Ability Minimal Assistance Areas Needing Assistance Button-Up Shirt/Blouse Socks Comments OT Dressing Comments Provided education to pt/ re: sequence for upper body dressing/undressing, optimal clothing choices and unilateral technique for donning socks. can assist PRN at home. Provided education re: donning/doffing L sling. OT ADL-Toileting General Evaluation Toileting Ability Independent OT ADL-Bathing Comments OT Bathing Comments Pt not allowed to shower at present, but provided education re: wahsing/drying under L arm and keeping L armpit dry. M5 OT- IP IADL's Start: 10/28/18 14:39 Freq: Status: Active Protocol: Document 10/30/18 10:55 PJM (Rec: 10/30/18 14:01 [facility] [id number]) OT-Instrumental Activities of Daily Living Deficits IADL Deficits Identified Deficits Home Safety Awareness Awareness of Need for Assistance at Home Good Awareness Ability to Problem Solve Emergency Able to Problem Solve Situations Medication Management Medication Management No Deficits Identified Money Management Money Management No Deficits Identified Meal Preparation Meal Preparation Caregiver Provides Assist Meal Preparation Comments to assist until pt able Farm Supervisor Farm Supervisor Caregiver Provides Assist Farm Supervisor Comments to assist until pt able Driving Driving Caregiver Provides Assist Driving Comments to assist until pt able M6 OT- IP Functional Cognition Start: 10/28/18 14:39 Freq: Status: Active Protocol: Document 10/30/18 10:55 PJM (Rec: 10/30/18 14:01 [facility] [id number]) Cognitive Factors Limiting Selfcare Function Cognitive Ability Level of Alertness Drowsy Patient Orientation Name Age Birthday Month Date Year Day of Week Place Situation Attention Span Ability Capable of Focused Attention Capable of Sustained Attention Ability to Follow Commands Able to Follow One Step Commands Memory Description No Deficits Noted Safety Awareness No Deficits Noted Problem Solving Ability No deficits Noted Cognitive Comments Cognitive Assessment Comments Pt appears mildly drowsy from pain meds. OT- Vision and Hearing OT- Hearing Assessment OT- Hearing Assessment WFL OT- Vision Assessment Visual Acuity WFL Vision Assessment Comments Pt denies any recent changes. M7 OT- IP Mobility and Balance Start: 10/28/18 14:39 Freq: Status: Active Protocol: Document 10/30/18 10:55 PJM (Rec: 10/30/18 14:01 [facility] [id number]) OT-Transfer Assessment Comments Mobility Comments See P.T. notes, pt declining out of bed this session. OT- Gait Assessment Comments Gait Ability Comments Pt states he has been up in halls ambulating with OT- Balance Assessment Comments Other Balance Tests/Deviations/Treatment see P.T. notes : M8 OT- IP Objective Assessments Start: 10/28/18 14:39 Freq: Status: Active Protocol: Document 11/02/18 13:16 CGR (Rec: 11/02/18 13:28 CGR [email or web address]) OT Gross Range of Motion Upper Extremity Range of Motion Assessment Left Impaired ROM Impairments PROM by pt in pendulum 0-70 to the L shld. WLF to distal joints on the LUE OT Strength Comments Strength Comments Performed 10 reps AROM to grasp, wrist fx/ext and ulnar/ radial deviation, pro/sup, elbow fx/ext. PROM/AAROM to shld fx (pendulums with circles), internal/external rotation. AROM shld shrugs and scapular retrations. OT- Coordination Assessment Upper Extremity Finger to Nose Test Within Functional Limits Finger Tapping Test Within Functional Limits M9 OT- IP Assessment and Plan Start: 10/28/18 14:39 Freq: Status: Active Protocol: Document 11/02/18 13:16 CGR (Rec: 11/02/18 13:28 CGR [email or web address]) OT Summary Assessment and Plan Potential Rehabilitation Potential Excellent Summary OT Impairments Pain Range of Motion Strength Coordination Dressing Bathing Assessment Summary Pt presents with positive attitude and willingness to perform UE therex. Will benefit from continued OT services to progress ROM. Pt left supine in bed at end of session with towel roll under back to encourage scapular retraction. Goals Dressing Goal Standby Assistance Bathing Goal Minimal Assistance Shower Transfer Goal Standby Assistance Patient/Caregiver Education Goal Demonstrate Post-Op Precautions Caregiver Independent Assisting Patient Days to Meet Goals 2 Frequency of Treatment Frequency Of Treatment Once a Day Treatment Plan OT Treatment Plan ADL Training Functional Mobility Therapeutic Exercises Patient/Family Education Discharge Planning Discharge Recommendations OT Discharge Recommendations Home with Assistance
--- NOTE | 2018-11-02 14:05 | CM.DPC ---
DCP: continued: Case received, EMR for last few days is reviewed. Discussed in Team Rounds. Pt had I&D #3 of shoulder yesterday afternoon. He worked initially with PT, has been working daily with OT and doing well for home with his 's assistance and OUTPT Therapy (already scheduled in [place]). Dr. Ogden anticipates a d/c later today or tomorrow. Will be following prn.
[2018-11-02] MEDS: OXYCODONE IR 5 MG TABLET 10 MG PO ×3 (14:46→22:11)
[2018-11-02 15:25] VITALS: BP 131/85; PULSE 89; RESP 16; TEMP 36.8; O2SAT 96
--- NOTE | 2018-11-02 15:59 | P.PN_ITS ---
Subjective Date Patient Seen: 11/02/18 Time Patient Seen: 15:10 Interval history: Mr. Melendrez is a 58 y.o. male who is status post the 3rd surgical washout for an abscess of the left shoulder. He was having a lot of throbbing pain and took an oxycodone approximately 15 minutes prior to my visit. Stated he had some swelling in the left upper arm. Currently rating his pain at a 6, waiting for the medication to take effect. Denies numbing or tingling in his arm or hand. He has been ambulating independently in the halls and attempting to do full range of motion which has been limited by swelling and pain. He states he has not had a bowel movement since admission. Stated they gave him a prune cocktail this am and is taking medication to help him have a bowel movement. Nursing in the room mentioned his labs came back as having pre-diabetes. States he took prednisone for 5 days prior to admission for upper respiratory symptoms. Exam Vital Signs (past 8 hours): - 11/02/18 11:17 Temperature 97.6 F Pulse Rate 82 Respiratory Rate 16 Blood Pressure 122/80 Pulse Oximetry 92 Oxygen Delivery Method Room Air Oxygen Flow Rate 0 Const General: cooperative, healthy appearing and well developed Nutritional Appearance: well nourished Orientation: alert, awake and oriented x3 Neck Neck: normal visual inspection, trachea midline and supple Resp Effort & Inspection: normal respiratory effort and able to speak in complete sentences Auscultation: clear to auscultation bilaterally Cardio Rate: regular rate Rhythm: regular rhythm Heart Sounds: S1 normal and S2 normal Other: No murmurs. GI Inspection: normal to inspection and non-distended Palpation: soft Skin Other: Left shoulder w/ABD pad, drainage outlined from yesterday and currently blood appears to be retreating from the wound. No swelling seen. Neuro General: oriented x3 Cognition: normal cognition Speech: speech normal Sensory Exam: no sensory deficits noted Extrem Right upper extremity: shoulder/upper arm Details: abnormal to inspection, inspection normal, no tenderness, no swelling, axillary nerve sensory function abnormal, ROM limited, ROM normal, no abrasions, no lacerations, no ecchymosis, no crepitus, no foreign bodies, no penetrating wound, no deformity, no unusual warmth and no other Left upper extremity: shoulder/upper arm (Swelling, tender to deep palpation, covered by an ABD pad w/Radhames drain) Other: Negative Octavia's sign bilateral LE. Psych Attitude: cooperative Thought Process: normal Thought Content: normal Judgment: judgment good Objective Labs Result Diagrams: 11/02/18 11:05 11/01/18 05:52 Labs: Laboratory Results - last 24 hr 11/02/18 11:05 WBC 11.3 H RBC 3.61 L Hgb 10.8 L Hct 31.9 L MCV 88.5 MCH 29.9 MCHC 33.8 RDW 12.9 Plt Count 700 H Neut % (Auto) 75.5 H Lymph % (Auto) 14.3 L [place] % (Auto) 8.8 Eos % (Auto) 1.0 L Baso % (Auto) 0.4 Neut # (Auto) 8500 H Lymph # (Auto) 1600 [place] # (Auto) 1000 H Eos # (Auto) 100 Baso # (Auto) 0 Assessment & Plan (1) Cellulitis: Problem details: Continue IV gentimycin Qualifiers: Laterality: left Site of cellulitis: extremity Site of cellulitis of extremity: upper extremity Site of cellulitis of trunk: Qualified Code(s): L03.114 - Cellulitis of left upper limb Current visit: Yes Status: Acute (2) Hyperlipidemia: Problem details: Resume home dose of rosuvastatin 10 mg po daily Current visit: Yes Status: Chronic (3) Abscess of arm, left: Problem details: 58 y/o male admitted with shoulder abcess, secondary to Group A STrep S/P I&D X 3 , with washout. Overall improving. WBC improving. Current visit: Yes Status: Acute (4) Constipation due to opioid therapy: Problem details: Bisacodal suppositories prn, MOM, colace 100 mg po bid. Current visit: Yes Status: Acute (5) Prediabetes: Problem details: POA. Continue ACHS checks with correctional insulin dosing. Continue monitoring w/follow-up A1c outpatient. Current visit: Yes Status: Acute Quality VTE Deep Vein Thrombosis/Pulmonary Embolism Present on Admission: No
--- NOTE | 2018-11-02 16:03 | PM.PNPO.1 ---
Subjective Date Patient Seen: 11/02/18 Time Patient Seen: 16:03 Interval history: Patient's pain was mild earlier today recently with some activity more severe took 10 mg oxycodone now more comfortable. Denies fever chills. No nausea vomiting. Patient has not had a bowel movement since being admitted to the hospital last week. Exam Vital Signs (past 8 hours): - 11/02/18 11:17 11/02/18 15:25 Temperature 97.6 F 98.2 F Pulse Rate 82 89 Respiratory Rate 16 16 Blood Pressure 122/80 131/85 Pulse Oximetry 92 96 Oxygen Delivery Method Room Air Oxygen Flow Rate 0 Narrative Exam Narrative: Pleasant 58-year-old male resting comfortably in bed in no apparent distress. Left shoulder dressing is clean, dry and intact. Radial pulses 2+. Motor functions intact distally left upper extremity. Sensation grossly intact to light touch distal left upper extremity. Objective Labs Result Diagrams: 11/02/18 11:05 11/01/18 05:52 Labs: Laboratory Results - last 24 hr 11/02/18 11:05 WBC 11.3 H RBC 3.61 L Hgb 10.8 L Hct 31.9 L MCV 88.5 MCH 29.9 MCHC 33.8 RDW 12.9 Plt Count 700 H Neut % (Auto) 75.5 H Lymph % (Auto) 14.3 L [place] % (Auto) 8.8 Eos % (Auto) 1.0 L Baso % (Auto) 0.4 Neut # (Auto) 8500 H Lymph # (Auto) 1600 [place] # (Auto) 1000 H Eos # (Auto) 100 Baso # (Auto) 0 Assessment & Plan Post-op Postoperative Procedures Operation Date: 10/27/18 16:35 Actual Procedures Side Surgeon p Incision and Drainage Wound/Extremity left shoulder Left Anna Ogden MD Status post left shoulder excisionally irrigation debridement with debridement some necrotic muscle on October 27, 2018. Repeat left shoulder irrigation and excisional debridement of necrotic fat and dressing change October 29, 2018. Excisional left shoulder I and D with partial delayed primary closure of 8 cm wound November 01, 2018. Patient progressing as expected. Patient likely discharge home tomorrow. Drain should be removed prior to discharge. Patient will continue antibiotics for 2 weeks. Patient will need follow-up with [facility] in 10-14 days. Operation Date: 10/29/18 16:30 Actual Procedures Side Surgeon p I&D shoulder Left Anna Ogden MD Operation Date: 11/01/18 13:05 Actual Procedures Side Surgeon p Incision and Drainage wound left shoulder with cultures Left Anna Ogden MD Quality VTE Deep Vein Thrombosis/Pulmonary Embolism Present on Admission: No
--- NOTE | 2018-11-02 16:08 | P.PN_ITS ---
Subjective Date Patient Seen: 11/02/18 Time Patient Seen: 16:03 Interval history: Patient's pain was mild earlier today recently with some activity more severe took 10 mg oxycodone now more comfortable. Denies fever chills. No nausea vomiting. Patient has not had a bowel movement since being admitted to the hospital last week. Exam Vital Signs (past 8 hours): - 11/02/18 11:17 11/02/18 15:25 Temperature 97.6 F 98.2 F Pulse Rate 82 89 Respiratory Rate 16 16 Blood Pressure 122/80 131/85 Pulse Oximetry 92 96 Oxygen Delivery Method Room Air Oxygen Flow Rate 0 Narrative Exam Narrative: Pleasant 58-year-old male resting comfortably in bed in no apparent distress. Left shoulder dressing is clean, dry and intact. Radial pulses 2+. Motor functions intact distally left upper extremity. Sensation grossly intact to light touch distal left upper extremity. Objective Labs Result Diagrams: 11/02/18 11:05 11/01/18 05:52 Labs: Laboratory Results - last 24 hr 11/02/18 11:05 WBC 11.3 H RBC 3.61 L Hgb 10.8 L Hct 31.9 L MCV 88.5 MCH 29.9 MCHC 33.8 RDW 12.9 Plt Count 700 H Neut % (Auto) 75.5 H Lymph % (Auto) 14.3 L [place] % (Auto) 8.8 Eos % (Auto) 1.0 L Baso % (Auto) 0.4 Neut # (Auto) 8500 H Lymph # (Auto) 1600 [place] # (Auto) 1000 H Eos # (Auto) 100 Baso # (Auto) 0 Assessment & Plan Post-op Postoperative Procedures Operation Date: 10/27/18 16:35 Actual Procedures Side Surgeon p Incision and Drainage Wound/Extremity left shoulder Left Anna Ogden MD Status post left shoulder excisionally irrigation debridement with debridement some necrotic muscle on October 27, 2018. Repeat left shoulder irrigation and excisional debridement of necrotic fat and dressing change October 29, 2018. Excisional left shoulder I and D with partial delayed primary closure of 8 cm wound November 01, 2018. Patient progressing as expected. Patient likely discharge home tomorrow. Drain should be removed prior to discharge. Patient will co ntinue antibiotics for 2 weeks. Patient will need follow-up with [facility] in 10-14 days. Operation Date: 10/29/18 16:30 Actual Procedures Side Surgeon p I&D shoulder Left Anna Ogden MD Operation Date: 11/01/18 13:05 Actual Procedures Side Surgeon p Incision and Drainage wound left shoulder with cultures Left Anna Ogden MD Quality VTE Deep Vein Thrombosis/Pulmonary Embolism Present on Admission: No
--- NOTE | 2018-11-02 16:22 | PC.NURSE ---
Addendum entered by Christine Joe R.N. 11/02/18 22:36: Pt had relatively uneventful evening. Dsg remains unchanged. HL intact/patent. Med last at 2215 w/oxycodone 10mg. w/good relief. Call light w/in reach, pt calls appropriatly for needs. Continue w/plan of care. Original Note: Pt visiting w/family. Lungs clear, SpO2 97% RA Left shoulder dsg w/old shadow drainage within lines. CMS + to fingers. HL RFA intact/patent. Call light w/in reach, pt calls appropriately.
[2018-11-02] MEDS: DOCUSATE 100 MG CAPSULE PO (18:43)
[2018-11-02 19:55] VITALS: BP 147/62; PULSE 88; RESP 20; TEMP 37; O2SAT 94
[2018-11-02] MEDS: ROSUVASTATIN 10 MG TABLET PO (20:36)
[2018-11-03 00:50] VITALS: BP 133/83; PULSE 89; RESP 16; TEMP 36.9; O2SAT 95
[2018-11-03] MEDS: SODIUM CHLORIDE 0.9% FLUSH 10 ML IV ×2 (01:03→09:33)
[2018-11-03] MEDS: CLINDAMYCIN 900 MG/50 ML PIGGYBACK 50 MG IV ×2 (01:03→09:33)
[2018-11-03] MEDS: OXYCODONE IR 5 MG TABLET 10 MG PO ×3 (01:04→08:32)
--- NOTE | 2018-11-03 01:24 | PC.NURSE ---
Addendum entered by Krystal Hamilton R.N. 11/03/18 04:13: Up for walk in ferro and then back to bed. Requested/medicated with 10mg Oxycodone for 3/10 pain and ice pack applied. Original Note: Patient up walking in ferro and now back to bed with IV antibiotic infusing. Is alert and oriented. Breath sounds CTA with RA sat of 95%. HRR. Denies nausea. BT present; reports he had a BM yesterday around 1730. Denies dysuria, frequency or urgency; using urinal. Independent with mobility. Dressing to left upper arm/axilla is intact with no new drainage compared to last night. Complains of 4/10 aching pain in left axilla/elbow so medicated with Oxycodone and ice applied. Still will edema in upper arm but softer to touch. Has limited ROM due to pain. Declines to have SCD's applied tonight; reminded to ankle wave when awake. Fall risk score is moderate.
[2018-11-03 04:00] VITALS: BP 123/79; PULSE 90; RESP 16; TEMP 36.9; O2SAT 96
[2018-11-03 07:35] VITALS: BP 122/80; PULSE 88; RESP 16; TEMP 36.6; O2SAT 98
[2018-11-03 08:18] LABS: Add Manual Diff / Slide Review NO; Basophils Absolute Auto 100 /uL (0-100); Basophils Percent Auto 1.2 % (0-2); Eosinophils Absolute Auto 100 /uL (0-450); Eosinophils Percent Auto 0.8 % (2-4); Hematocrit 32.4 % (41-53); Hemoglobin 10.8 g/dL (13.5-17.5); Lymphocytes Absolute Auto 2200 /uL (1100-4500); Lymphocytes Percent Auto 19.3 % (25-40); Mean Corpuscular HGB Conc 33.3 % (30-36); Mean Corpuscular Hemoglobin 29.7 PG (26-34); Mean Corpuscular Volume 89.1 fL (80-100); Monocytes Absolute Auto 900 /uL (0-900); Monocytes Percent Auto 7.9 % (3-14); Neutrophils Absolute Auto 8100 /uL (1500-7000); Neutrophils Percent Auto 70.8 % (50-75); Platelet Count 775 X10^3/uL (150-400); Red Blood Cell Count 3.63 X10^6/uL (4.5-5.9); Red Cell Distribution Width 12.6 % (11.6-14.8); White Blood Cell Count 11.5 X10^3/uL (4.5-11.0)
[2018-11-03 08:30] LABS: Blood Urea Nitrogen 16 mg/dL (9-20); Calcium 8.8 mg/dL (8.4-10.2); Carbon Dioxide 31 mmol/L (22-32); Chloride 94 mmol/L (98-107); Estimated Glomerular Filt Rate > 60.0 mL/min (>60); Glucose 105 mg/dL (70-100); HEMOLYSIS < 15 (0-50); Sodium 132 mmol/L (137-145)
[2018-11-03] MEDS: LACTOBACILLUS ACIDOPHILUS TABLET 1 EACH PO (08:32)
[2018-11-03] MEDS: DOCUSATE 100 MG CAPSULE PO (08:33)
[2018-11-03] MEDS: SENNOSIDES 8.6 MG TABLET 17.2 MG PO (08:33)
[2018-11-03] MEDS: ASPIRIN EC 81 MG TABLET PO (08:33)
[2018-11-03 09:07] LABS: RBC Morphology Normal Morphology
[2018-11-03 09:08] LABS: Platelet Estimate Increased on smear
[2018-11-03] MEDS: SODIUM CHLORIDE 0.9% 250 ML 100 ML IV (09:33)
--- NOTE | 2018-11-03 09:51 | P.DS_ITS ---
History of Present Illness Date Patient Seen: 11/03/18 Time Patient Seen: 09:44 Chief complaint: left shoulder pain and swelling Narrative: Hospital day 8, postop days 7, 5, 2 following left shoulder I and D for septic joint. he had wound closure done at his last surgery and [place] drain placed. his pain has been improving. Wound cultures from 11/01/2018 note no growth. He is currently on clindamycin 900 mg IV q.8h on recommendation by Dr. Moralez, infection disease. he recommends patient be changed to Augmentin on discharge from hospital. Discharge Providers Date of admission: 10/27/18 18:59 Discharge Date: 11/03/18 Primary care physician: Rodolfo Loya MD Consults: 10/27/18 23:53 Consult to Discharge Planning Routine Comment: Consult to Physical Therapy Evaluate & Treat Comment: Physician Instructions: Evaluate and Treat Consult to Respiratory Therapy Evaluate & Treat Comment: Physician Instructions: Evaluate and treat 10/28/18 14:16 Consult to Occupational Therapy Evaluate & Treat Comment: No restrictions to ROM active and passive Physician Instructions: Evaluate and treat 10/29/18 12:23 Consult to Hospitalist Service Routine Comment: medical Consulting Provider: Maria Dolores Castro Reason for consultation: medical management for shoulder abcess/cough 10/31/18 10:19 Consult to Occupational Therapy Evaluate & Treat Comment: full active range of motion to the left shoulder Physician Instructions: Evaluate and treat Discharge provider: Yon Cartagena PA-C Summary Discharge Diagnosis: Status post left shoulder abscess I and D Hospital Course: Patient brought to hospital on 10/27/2018 for increasing left shoulder pain. he was noted to have abscess to anterior shoulder. He underwent a shoulder I and D on 10/28/2018, 10/30/2018 and wound closure 11/01/2018. Gradually improved. White count has gradually decreased. He did have some initial hyponatremia and elevated blood sugar which improved after treatment. he is ready for discharge to home on hospital day 8. Status at Discharge Cognitive/behavioral status at discharge: oriented Functional status at discharge: independent ambulation Overall status at discharge: patient is progressing back to baseline Time Spent with Patient Less than 30 minutes Exam Vital Signs (past 8 hours): - 11/03/18 04:00 11/03/18 07:35 Temperature 98.5 F 97.8 F Pulse Rate 90 88 Respiratory Rate 16 16 Blood Pressure 123/79 122/80 Pulse Oximetry 96 98 Oxygen Delivery Method Room Air Oxygen Flow Rate 0 Narrative Exam Narrative: Alert, oriented no acute distress sitting in chair. Patient also seen by Dr. Ogden at this time. left shoulder. Dressing removed. a [place] drain removed from wound and dry dressing with CovRsite dressing applied. branch banker strong. Patient does have difficulty lifting his arm actively with discomfort. Objective Labs Result Diagrams: 11/03/18 Unknown 11/03/18 Unknown Labs: Laboratory Results - last 24 hr 11/02/18 11/03/18 11/03/18 11:05 Unknown Unknown WBC 11.3 H 11.5 H RBC 3.61 L 3.63 L Hgb 10.8 L 10.8 L Hct 31.9 L 32.4 L MCV 88.5 89.1 MCH 29.9 29.7 MCHC 33.8 33.3 RDW 12.9 12.6 Plt Count 700 H 775 H Neut % (Auto) 75.5 H 70.8 Lymph % (Auto) 14.3 L 19.3 L [place] % (Auto) 8.8 7.9 Eos % (Auto) 1.0 L 0.8 L Baso % (Auto) 0.4 1.2 Neut # (Auto) 8500 H 8100 H Lymph # (Auto) 1600 2200 [place] # (Auto) 1000 H 900 Eos # (Auto) 100 100 Baso # (Auto) 0 100 Platelet Estimate Increased on smear RBC Morphology Normal morphology Sodium 132 L Potassium 4.0 Chloride 94 L Carbon Dioxide 31 BUN 16 Creatinine 1.00 Estimated GFR > 60.0 BUN/Creatinine Ratio 16.0 Glucose 105 H Calcium 8.8 Discharge Plan Discharge Plan Discharge Problem: Cellulitis, Abscess of arm, left Patient Disposition: Home Discharge comment: Discharged to home today after cleared by PT. He will schedule of left shoulder therapy at [facility] in [place]. Patient placed on Augmentin 875 mg b.i.d. x2 weeks. He may change his dressing every 2-3 days. He will have a follow-up visit with Dr. Ogden in 1 week. Discharge Med Rec/Prescriptions Prescriptions: New hydroxyzine pamoate [Vistaril] 25 mg capsule 25 mg PO Q6-8H PRN (Reason: spasms) Qty: 20 RF: 0 oxycodone 5 mg tablet 5 mg PO Q4-6H PRN (Reason: pain) Qty: 30 RF: 0 amoxicillin-pot clavulanate [Augmentin] 875-125 mg tablet 1 tab PO BID Qty: 30 RF: 0 Continued prednisone 20 mg tablet 20 mg PO DAILY RF: 0 diazepam 5 mg tablet 5 mg PO Q4H PRN (Reason: Muscle Spasm) RF: 0 rosuvastatin 10 mg tablet 10 mg PO QPM RF: 0 multivitamin Tablet 1 tab PO QPM RF: 0 aspirin 81 mg Tablet,Delayed Release (Dr/Ec) 81 mg PO QPM RF: 0 Calcium 1 tab PO QPM RF: 0 Follow up/Referrals: Edwar Alatorre MD [Non-Staff] - Provider Discharge Instructions Diet: Diet as Tolerated Activity: Gradual increase left arm use as tolerated. No heavy lifting or pulling more than 5-10 lb. Skin/Wound/Dressing Care Report to your healthcare provider any signs of infection, such as:: chills, fever, night sweats, increased pain, unusual drainage and unusual redness Visit Report/Discharge Packet Instructions: Glycohemoglobin, Lifestyle Changes as Effective as Drugs in Preventing Progression to Diabet, DI for Incision and Drainage, [facility]: Wound Care, DI for Incision and Drainage of a Joint, DI for Cellulitis -- Adult Visit Report Forms: Stroke Signs & Symptoms Discharge Data Primary Care Provider: Rodolfo Loya Attending Provider: Anna Ogden Admit Date/Time: 10/27/18 18:59 Discharge Interventions Interventions: Discharge assessment Last Done: 11/01/18 16:20 Quality VTE Deep Vein Thrombosis/Pulmonary Embolism Present on Admission: No
--- NOTE | 2018-11-03 10:03 | CM.DPC ---
DCP: continued: case discussed in Team Rounds. Ortho OLYA Cartagena states sigrid drain is out, pt is getting last IV antibiotic dose and will d/c home after this. OT reports no need to see pt before the d/c today. Met with pt and his Alice. Introduced self and role. OLYA Cartagena was just finalizing the d/c instructions with them. Pt is set for OUTPT PT at [facility] in [place]. He is going to be on oral antibiotics at home. Dr. Ogden did see pt this morning and she will see him again in clinic in one week. Pt and Alice confirmed they were very comfortable with the plan for d/c to home today.
--- NOTE | 2018-11-03 10:30 | PC.NURSE ---
Addendum entered by Marisol Galaviz R.N. 11/03/18 12:11: Reviewed discharge summary with pt and his Duyen. reviewed but not limited to F/U appointment, pain management, wound care, antibiotic use. Dr. Ogden stated this AM in pt's room that pt could take Ibuprofen 800mg 3X/day for pain/inflammation and Tylenol prn. Pt stated he will likely stay away from Tylenol as it makes him diaphoretic. No voiced concerns. States has all belongings. Pt left unit via wheelchair with SPICE FUMIGATOR and his Duyen to drive him home. Pt left in no distress at 1210. Original Note: Day Shift- Pt A&OX4, able to make needs known using call light. OOB indep in room and ambulating in halls with steady gait. Around 0820, left shoulder dressing removed by SEGUN Thomas, sigrid drain removed also, 1 folded 4X4 gauze covered with coversite dressing. Wound care instructions, pain management and ROM exercises discussed with SEGUN Thomas and Dr. Ogden around that same time. Pt states is ready to go home today. Discharge order rec'd with prescriptions.
--- NOTE | 2018-11-03 11:18 | OT.IP.TRT ---
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) Prediabetes (10/27/18) Adverse effect of other opioids, initial encounter (10/27/18) Surgery Performed Operation Date: 10/27/18 16:35 Actual Procedures p Incision and Drainage Wound/Extremity left shoulder(Left) - Anna Ogden MD Operation Date: 10/29/18 16:30 Actual Procedures p I&D shoulder(Left) - Anna Ogden MD Operation Date: 11/01/18 13:05 Actual Procedures p Incision and Drainage wound left shoulder with cultures(Left) - Anna Ogden MD Occupational Therapy Treatment Note M2 OT-IP Current Condition Start: 10/28/18 14:39 Freq: Status: Active Protocol: Document 11/02/18 13:16 [facility] (Rec: 11/02/18 13:28 [facility] [id number]) Occupational Therapy Current Condition Current Condition Treatment Diagnosis decreased LUE functional use and indep in ADLS s/p I&D L shoulder x3 Diagnosis Onset Date 10/27/18 Post Operative Precautions Other Precautions Orders recieved verbally from Mireille DOBSON for full ROM to the LUE AROM ok. M3 OT- IP Subjective and Pain Start: 10/28/18 14:39 Freq: Status: Active Protocol: Document 11/03/18 11:17 [facility] (Rec: 11/03/18 11:18 [facility] [id number]) OT- Subjective Occupational Therapy Visit Type Type Patient Refusal Notes Pt resting in bed with , waiting for IV to be completed and to assist pt with shower prior to going home today. Therefore pt not wanting to do any OT at this time.
== END 2018-11-03 12:10 | disposition home or self-care (01) | DRG 501 ==
LOC: ED 18:16 → AC 10-28 07:51
PROVIDERS: Internal Medicine; Nurse Practitioner Adult Health; Physician Assistant; Physician Assistant Surgical; Admitting Provider Orthopaedic Surgery; Emergency Provider Nurse Practitioner Family; Family Provider Family Medicine; PCP Family Medicine; Visit Provider Orthopaedic Surgery
PROC: 0KB60ZZ Excision of Left Shoulder Muscle, Open Approach (ICD-10-PCS; principal; 2018-10-27 16:35)
PROC: 0JDF0ZZ Extraction of Left Upper Arm Subcutaneous Tissue and Fascia, Open Approach (ICD-10-PCS; principal; 2018-11-01 13:05)
DX: M60.012 Infective myositis, left shoulder (principal); E87.1 Hypo-osmolality and hyponatremia; I96 Gangrene, not elsewhere classified; B95.0 Streptococcus, group A, as the cause of diseases classified elsewhere; E78.5 Hyperlipidemia, unspecified; R73.9 Hyperglycemia, unspecified; T40.2X5A Adverse effect of other opioids, initial encounter; K59.00 Constipation, unspecified
CPT/HCPCS: 36415; 36591; 73220; 73223; 76882; 80048; 80053; 82962; 83036; 83605; 84145; 85025; 85027; 87040; 87070; 87075; 87077; 87147; 87186; 87205; 93306; 94762; 96365; 96366; 96375; 96376; 97110; 97116; 97162; 97165; 99283; 99284; A9579; C9290; J0330; J0690; J1170; J1650; J1885; J2175; J2250; J2405; J2540; J2704; J3010; J3370

== ENCOUNTER → 2022-06-25 09:26 | Outpatient (CLI) | payer BC, SELFPAY ==
[2018-10-27 22:38] VITALS: BMI 27.7
[2022-06-25 10:50] LABS: BUN Creatinine Ratio 17.2 (6-22); Blood Urea Nitrogen 15 mg/dL (9-20); Calcium 9.5 mg/dL (8.4-10.2); Carbon Dioxide 24 mmol/L (22-32); Chloride 102 mmol/L (98-107); Estimated Glomerular Filt Rate > 60 mL/min (>60); Glucose 105 mg/dL (80-110); HEMOLYSIS < 15 (0-50); Potassium 4.2 mmol/L (3.4-5.1); Sodium 137 mmol/L (137-145)
== END ==
PROVIDERS: Family Provider Family Medicine; PCP Family Medicine; Referring Provider Urology; Visit Provider Urology
DX: N39.0 Urinary tract infection, site not specified (principal); R10.9 Unspecified abdominal pain; Q54.9 Hypospadias, unspecified; I86.1 Scrotal varices; Z87.442 Personal history of urinary calculi
CPT/HCPCS: 36415; 51798; 80048; 81002

== ENCOUNTER → 2022-07-01 14:37 | Outpatient (CLI) | payer BC, SELFPAY ==
[2018-10-27 22:38] VITALS: BMI 27.7
--- NOTE | 2022-07-01 14:38 | DI.CT.S_ITS ---
PROCEDURE: CT ABDOMEN PELVIS WO/W CON INDICATIONS: Recurring urinary tract infections TECHNIQUE: Optional 5 mm thick noncontrast images acquired from the diaphragm to the symphysis pubis. After the administration of intravenous contrast, 5 mm thick images acquired from the diaphragm to the symphysis pubis after a 10-minute delay. 2 mm thick coronal and sagittal reformats were then performed of the kidneys and ureters. For radiation dose reduction, the following was used: automated exposure control, adjustment of mA and/or kV according to patient size. COMPARISON: None. FINDINGS: Image quality: Excellent. Lung bases: Lung bases are clear. Heart size is normal. Possible PFO closure device in place. Urinary system: Both kidneys are normal size. There is a collection two nonobstructing stones together in the lower pole calyx of the right kidney measuring 0.8 x 0.6 cm with Hounsfield units 610. Punctate stone in the midpole left kidney. No hydronephrosis on either side. Finally septated corticomedullary cyst measuring about 3.1 by 2.3 x 2.4 cm arises from the upper pole left kidney without enhancement postcontrast. No solid cortical masses. Opacified intrarenal and ureteral collecting system is normal. No suspicious filling defects. The under distended urinary bladder has a normal appearance. No intraluminal masses, wall thickening, or calcifications. Other solid organs: The liver is slightly enlarged and there is diffuse low-density. Subcentimeter cyst in the caudate lobe. The gallbladder is decompressed. No calcifications. Biliary system is nondilated. Pancreas, adrenal glands, and spleen are normal. Peritoneum and bowel: Stomach and small bowel loops are normal. There is diverticulosis of the descending and sigmoid colon. No acute diverticulitis. Normal appendix present. Nodes and vessels: No retroperitoneal or mesenteric adenopathy by size criteria. Aorta and inferior vena cava are normal in size. Moderate abdominal aortic atherosclerotic calcification. Abdominal wall: Tiny fat containing umbilical hernia. Pelvis: No pathologic free pelvic fluid. No inguinal hernias or adenopathy. Bones: In area of coarse trabeculation in the left iliac bone adjacent to the sacroiliac joints is minimally expansile but without suspicious periosteal reaction or cortical defect. No other suspicious bone lesions. IMPRESSION: 1. Nonobstructing right lower pole intrarenal calculus and a single punctate left midpole calculus. 2. Minimally complicated left renal cyst. No suspicious masses. 3. Moderate hepatic steatosis. 4. Descending and sigmoid colon diverticulosis without acute diverticulitis. 5. 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 Dictated by: Teresa Mccauley M.D. on 07/02/2022 at 6:56 Approved by: Teresa Mccauley M.D. on 07/02/2022 at 7:10
== END ==
PROVIDERS: Family Provider Family Medicine; PCP Family Medicine; Referring Provider Urology; Visit Provider Urology
DX: N20.0 Calculus of kidney (principal); K57.30 Diverticulosis of large intestine without perforation or abscess without bleeding; K76.0 Fatty (change of) liver, not elsewhere classified; N39.0 Urinary tract infection, site not specified; R10.9 Unspecified abdominal pain; Z87.442 Personal history of urinary calculi
CPT/HCPCS: 74178; Q9967

== ENCOUNTER → 2022-07-15 13:00 | Outpatient (CLI) | payer BC, SELFPAY ==
[2018-10-27 22:38] VITALS: BMI 27.7
== END ==
PROVIDERS: Family Provider Family Medicine; PCP Family Medicine; Visit Provider Urology
DX: N39.0 Urinary tract infection, site not specified (principal); N20.0 Calculus of kidney; I86.1 Scrotal varices; Q54.9 Hypospadias, unspecified
CPT/HCPCS: 81002; 87077; 87086; 87186

== ENCOUNTER → 2022-08-21 11:34 | Outpatient (CLI) | payer BC, SELFPAY ==
[2018-10-27 22:38] VITALS: BMI 27.7
--- NOTE | 2022-08-21 11:35 | DI.RAD.S_ITS ---
PROCEDURE: XR KUB INDICATIONS: Kidney stone TECHNIQUE: One view of the abdomen acquired. COMPARISON: [facility], CT, CT ABDOMEN PELVIS WO/W CON, 07/01/2022, 14:49. FINDINGS: Surgical changes and devices: None. Bowel: Bowel gas pattern is normal. Soft tissues: Questionable calcification projecting over the region of the inferior pole of the right kidney. Visualized solid organ contours appear normal in size. Bones: No suspicious bony lesions. Degenerative changes are seen in the spine. IMPRESSION: Possible calculus at the inferior pole of the right kidney. Approved by: Ricardo Asencio M.D. on 08/21/2022 at 16:36
== END ==
PROVIDERS: Family Provider Family Medicine; PCP Family Medicine; Referring Provider Urology; Visit Provider Urology
DX: N20.0 Calculus of kidney (principal)
CPT/HCPCS: 74018

== ENCOUNTER → 2022-09-05 07:52 | Outpatient (CLI) | payer BC, SELFPAY ==
[2018-10-27 22:38] VITALS: BMI 27.7
[2022-09-05 10:45] LABS: Appearance Urine UA CLEAR; Bilirubin Urine UA NEGATIVE (NEGATIVE); Color Urine UA YELLOW; Glucose Urine UA NEGATIVE (Negative); Ketones Urine UA NEGATIVE (NEGATIVE); Leukocyte Esterase Urine UA 1+ (NEGATIVE); Nitrite Urine UA NEGATIVE (Negative); Occult Blood Urine UA NEGATIVE (Negative); Protein Urine UA NEGATIVE (Negative); Specific Gravity Urine UA 1.015 (1.000-1.035); Urobilinogen Urine UA 0.2 E.U./dL (0.2)
[2022-09-05 11:44] LABS: Bacteria Urine Few (2-10); RBC Urine None Seen (0-5/HPF); WBC Urine 0-1/HPF (0-5/HPF)
[2022-09-05 11:45] LABS: Culture Indicated Urine Specimen Cultured
== END ==
PROVIDERS: Family Provider Family Medicine; PCP Family Medicine; Visit Provider Urology
DX: N20.0 Calculus of kidney (principal); N39.0 Urinary tract infection, site not specified
CPT/HCPCS: 81001; 87086

== ENCOUNTER 2022-09-10 12:43 | Day surgery (SDC) | payer BC, SELFPAY ==
[2018-10-27 22:38] VITALS: BMI 27.7
[2022-09-10] VITALS (7 sets, daily range): BP systolic 132–147; BP diastolic 83–93; PULSE 56–83; RESP 10–15; TEMP 36.2–36.3; O2SAT 94–100; BMI 29.7
[2022-09-10] MEDS: LACTATED RINGERS 1,000 ML 21 ML IV ×2 (13:11→15:06)
--- NOTE | 2022-09-10 13:51 | PM.PREOP ---
Pre-operative Note COVID-19 COVID-19 status: Not tested Criteria for continued procedure: Delay expected to result in less-positive ultimate med/surg outcome and Non-surgical alternatives not available or appropriate per current SOC Interval Note History & Physical reviewed/Exam performed by Physician: Yes Changes to H&P: No
[2022-09-10] MEDS: CEFAZOLIN 2 GM/100 ML PREMIX 100 ML IV (14:36)
--- NOTE | 2022-09-10 15:09 | SUR.OPER ---
[facility] head [facility] pillow, arms at side padded with gel. Legs secured in stirrups.
--- NOTE | 2022-09-10 15:30 | P.OP_ITS ---
Procedure & Clinicians Procedure: Right extracorporeal shockwave lithotripsy, right stent placement, cystoscopy, urethral dilation both with Lennox sounds and over the wire with cook S dilators, placement of Spivey catheter Same procedure as scheduled: Yes Indications: This 62-year-old male presented with complaints of hematuria was found to have renal calculi by imaging. And a flexible cystoscopy was found to have a distal urethral stricture. Patient has hypospadias and was unable to pass the flexible cystoscope. Presents this time for cystoscopy urethral dilation right ureteral stent placement and right extracorporeal shockwave lithotripsy to treat his various urologic complaints. Surgeon: Dawood Quiles Click Yes if Unassisted: Yes Anesthesia Type: General Operative Notes Findings: Findings: Distal shaft hypospadias distal urethral narrowing proximal to mid bulbar urethral stricture, stones and kidney bladder is unremarkable ureteral orifices in normal position with clear efflux no mucosal lesions or abnormalities are noted. A 7 Barbadian by multi length stent was left in good position in the right collecting system with no string the stone received 2000 shock waves at level 7 with good fragmentation a 20 Barbadian 5 cc silicone catheter was left in place with 12 cc in the balloon. Closure Type: not applicable Specimen(s): none sent Applied: catheter (Twenty Barbadian 5 cc all silicone catheter with 12 cc in the balloon.) Estimated Blood Loss (mL): 5 Blood products transfused: none Procedure in detail: Procedure in detail: After informed consent was obtained, the patient was identified and brought to the operating room. He was placed in the supine position on the Lithotripter where anesthesia was induced to maintain. Ensuring an adequate level of anesthesia the patient was transitioned to the lithotomy position. The patient was then prepped, draped, prepared for Transurethral procedure and extracorporeal shockwave lithotripsy. After prepping draping, time-out and ensuring an adequate level of anesthesia the distal urethra was dilated with Lennox sounds from 14-24 Barbadian. A 22 Barbadian cystoscope was then passed to the mid bulbar urethra where a stricture was also noted. A Amplatz ultra stiff wire was then passed through the stricture and coiled within the bladder. The scope was backed out and cook ?S? dilators were then used to sequentially dilate the stricture from 14-20 Barbadian. The wire was left in place and the scope passed along the wire and into the bladder easily. The Amplatz wire was then removed. Cystoscopy was performed the right ureteral orifice was identified and a hybrid wire passed up in the collecting system under fluoroscopic visualization. Stent was then passed over the wire positioned the renal pelvis under fluoroscopic visualization in the bladder under direct vision. The wire was then removed. Grasping forceps were inserted the stent was grasped and the nylon hardness removed. The cystoscope was then backed out and a 20 Barbadian all silicone catheter passed easily into the bladder the balloon filled with 12 cc of sterile water and the catheter was placed to gravity drainage. The patient then had the stone targeted via the imaging system and received shockwave level 7 for a total of 2000 shocks with periodic reimaging and re localization to ensure maximal energy delivery to the stone. At 2000 shocks the shockwave head was rotated out fluoroscopy performed confirming excellent fragmentation of the stone. At this point with the stone well treated the patient was awakened having tolerated the procedure well. Transferred to the postanesthesia care unit for recovery. The patient will be discharged home with his Spivey catheter returning in approximately 1 week for voiding trial and then proximally 14 days with a KUB. There were no complications Complications: none Post-operative Condition: stable Disposition: PACU Plan for aftercare: Patient to be discharged home with his Spivey catheter return to my office approximately 7 days for a voiding trial and then 14 days with a KUB to follow- up his extracorporeal shockwave lithotripsy.
[2022-09-10] MEDS: ACETAMINOPHEN 325 MG TABLET 650 MG PO (16:24)
[2022-09-10] MEDS: PHENAZOPYRIDINE 100 MG TABLET 200 MG PO (16:24)
[2022-09-10] MEDS: OXYBUTYNIN 5 MG TABLET PO (16:25)
== END 2022-09-10 16:30 | disposition home or self-care (01) ==
PROVIDERS: Family Provider Family Medicine; PCP Family Medicine; Referring Provider Urology; Visit Provider Urology
PROC: (CPT 50590; principal; 2022-09-10 14:00)
PROC: (CPT 50590; 2022-09-10 14:00)
DX: N20.0 Calculus of kidney (principal); N35.812 Other bulbous urethral stricture, male; Q54.1 Hypospadias, penile
CPT/HCPCS: 50590; 52332; J0690; J2250; J2405; J2704; J3010

== ENCOUNTER → 2022-09-18 07:33 | Outpatient (CLI) | payer BC, SELFPAY ==
[2022-09-11 08:57] VITALS: BMI 27.7
--- NOTE | 2022-09-18 07:34 | DI.RAD.S_ITS ---
PROCEDURE: XR KUB INDICATIONS: Kidney stone TECHNIQUE: One view of the abdomen acquired. COMPARISON: [facility], , XR KUB, 08/21/2022, 12:20. FINDINGS: Surgical changes and devices: Right-sided ureteral stent is seen and is in its expected position. Bowel: Bowel gas pattern is normal. Soft tissues: No suspicious abdominal calcifications. Visualized solid organ contours appear normal in size. Bones: No suspicious bony lesions. IMPRESSION: No definite renal calcification is seen on the current study. Right-sided ureteral stent in place. Dictated by: Riky Newton M.D. on 09/18/2022 at 8:54 Approved by: Riky Newton M.D. on 09/18/2022 at 8:55
== END ==
PROVIDERS: Family Provider Family Medicine; PCP Family Medicine; Referring Provider Urology; Visit Provider Urology
DX: N20.0 Calculus of kidney (principal); Z96.0 Presence of urogenital implants; R39.9 Unspecified symptoms and signs involving the genitourinary system
CPT/HCPCS: 51798; 74018

== ENCOUNTER → 2022-09-19 10:56 | Outpatient (CLI) | payer BC, SELFPAY ==
[2022-09-11 08:57] VITALS: BMI 27.7
[2022-09-19 11:43] LABS: Appearance Urine UA CLOUDY; Bilirubin Urine UA NEGATIVE (NEGATIVE); Color Urine UA YELLOW; Glucose Urine UA NEGATIVE (Negative); Ketones Urine UA NEGATIVE (NEGATIVE); Leukocyte Esterase Urine UA TRACE (NEGATIVE); Nitrite Urine UA NEGATIVE (Negative); Occult Blood Urine UA 3+ (Negative); Protein Urine UA 1+ (Negative); Urobilinogen Urine UA 0.2 E.U./dL (0.2)
[2022-09-19 12:02] LABS: RBC Urine >100/HPF (0-5/HPF); WBC Urine 1-5/HPF (0-5/HPF)
[2022-09-19 12:03] LABS: Bacteria Urine None Seen; Culture Indicated Urine Specimen Cultured; Squamous Epithelial Cell Urine 1-5 /HPF (0-5/HPF)
[2022-09-24 08:36] LABS: Stone Analysis Source NOT PROVIDED
[2022-09-24 08:37] LABS: Size 2X2
[2022-09-24 09:16] LABS: Ca oxalate dihydrate 70 % (.); Ca oxalate monohydr 10 % (.); Hydroxyapatite 20 % (.)
== END ==
PROVIDERS: Family Provider Family Medicine; PCP Family Medicine; Visit Provider Urology
DX: N20.0 Calculus of kidney (principal); N39.0 Urinary tract infection, site not specified
CPT/HCPCS: 51798; 81001; 82365; 87086

== ENCOUNTER → 2022-10-22 13:24 | Outpatient (CLI) | payer BC, SELFPAY ==
[2022-09-11 08:57] VITALS: BMI 27.7
[2022-10-22 14:11] LABS: Uric Acid 5.5 mg/dL (3.5-8.5)
[2022-10-24 07:47] LABS: Parathyroid Hormone Int 41 pg/mL (15-65)
== END ==
PROVIDERS: Family Provider Family Medicine; PCP Family Medicine; Referring Provider Urology; Visit Provider Urology
DX: N20.0 Calculus of kidney (principal)
CPT/HCPCS: 36415; 82310; 83970; 84550

== ENCOUNTER → 2023-11-12 06:23 | Outpatient (CLI) | payer BC, SELFPAY ==
[2022-09-11 08:57] VITALS: BMI 27.7
--- NOTE | 2023-11-12 06:24 | DI.RAD.S_ITS ---
PROCEDURE: XR KUB INDICATIONS: Follow-up kidney stones TECHNIQUE: One view of the abdomen acquired. COMPARISON: [facility], CR, XR KUB, 09/18/2022, 7:34. [facility], CR, XR KUB, 08/21/2022, 12:20. FINDINGS: Surgical changes and devices: Removal of right ureteral stent. Bowel: Bowel gas pattern is normal. Soft tissues: No suspicious abdominal calcifications. Visualized solid organ contours appear normal in size. Bones: No suspicious bony lesions. IMPRESSION: No definite renal stones are seen. Dictated by: Isidro Rich M.D. on 11/12/2023 at 8:17 Approved by: Isidro Rich M.D. on 11/12/2023 at 8:22
== END ==
LOC: RAD 06:24
PROVIDERS: Family Provider Family Medicine; PCP Family Medicine; Referring Provider Urology; Visit Provider Urology
DX: I86.1 Scrotal varices (principal); Q54.9 Hypospadias, unspecified; E83.59 Other disorders of calcium metabolism; R39.9 Unspecified symptoms and signs involving the genitourinary system; Z87.440 Personal history of urinary (tract) infections; Z87.442 Personal history of urinary calculi
CPT/HCPCS: 51798; 74018; 81002